=== PATIENT | female | born 1945 | race Caucasian/White ===

== ENCOUNTER 2019-08-30 05:35 | Outpatient (CLI) | payer OTHER ==
[~2019-08-30] VITALS: Ht 162.6 cm; Wt 94.1 kg
[2019-08-30] MEDS ORDERED: GEMF600T8 PO (10:26)
[2019-08-30] MEDS ORDERED: METO-310 PO (10:26)
[2019-08-30] MEDS ORDERED: MONT10TA26 PO (10:26)
[2019-08-30] MEDS ORDERED: ONDA-105 PO (10:26)
[2019-08-30] MEDS ORDERED: FLUT1DIS26 IH (10:26)
[2019-08-30] MEDS ORDERED: FAMO20TA5 PO (10:26)
[2019-08-30] MEDS ORDERED: TRIA1TAB5 PO (10:26)
[2019-08-30] MEDS ORDERED: ASPI-586 PO (10:26)
[2019-08-30] MEDS ORDERED: NF-ACI30T PO (10:26)
[2019-08-30] MEDS ORDERED: LOSA50TA63 PO (10:26)
[2019-08-30] MEDS ORDERED: RT-ALBUINH INH (10:26)
[2019-08-30] MEDS ORDERED: CALC1TAB PO (10:26)
== END 2019-08-30 10:35 | disposition home or self-care (01) ==
LOC: PREOP 05:35
PROVIDERS: ATTEND Podiatrist Foot & Ankle Surgery
DX: Z01.818 Encounter for other preprocedural examination (principal)

== ENCOUNTER 2019-09-06 05:53 | Day surgery (SDC) | payer MEDICARE, OTHER ==
[2019-09-06] VITALS (11 sets, daily range): BP systolic 111–143; BP diastolic 59–78
[~2019-09-06] VITALS: Ht 162.6 cm; Wt 94.1 kg
[~2019-09-06 05:53] MED LIST: ASPI-586 PO; CALC1TAB PO; FAMO20TA5 PO; FLUT1DIS26 IH; GEMF600T8 PO; LOSA50TA63 PO; METO-310 PO; MONT10TA26 PO; NF-ACI30T PO; ONDA-105 PO; RT-ALBUINH INH; TRIA1TAB5 PO
[2019-09-06] MEDS ORDERED: ceFAZolin INJECTION 1,000 MG in WATER (STERILE) FOR INJECTION 10 ML IV ONE (06:15)
[2019-09-06] MEDS: LACTATED RINGERS 1,000 ML IV PRN ×3 (06:34→11:16)
[2019-09-06] MEDS ORDERED: FAMOTIDINE 20MG/2ML IV (PEPCID) ONE (06:35)
[2019-09-06] MEDS ORDERED: ceFAZolin INJECTION 1,000 MG ONE (06:36)
[2019-09-06] MEDS ORDERED: WATER (STERILE) FOR INJECTION 10 ML ONE (06:36)
[2019-09-06] MEDS ORDERED: FAMOTIDINE 20MG/2ML IV (PEPCID) IV ONE (06:45)
[2019-09-06] MEDS ORDERED: CATHETER FLUSH 10 ML SYR IV PRN (06:45)
[2019-09-06] MEDS ORDERED: LIDOCAINE 1% INJ 20 ML 20 ML VIAL ONE (07:23)
[2019-09-06] MEDS ORDERED: BUPIVACAINE 0.5% 30 ML (SENSORCAINE) VIAL ONE (07:23)
[2019-09-06] MEDS ORDERED: DEXAMETHASONE 10 MG/ML (DECADRON) 1 ML VIAL ONE ×2 (07:23→08:56)
--- NOTE | 2019-09-06 07:35 | Progress Note-Pre Operative ---
Pre-Operative Progress Note H&P Reviewed The H&P was reviewed, patient examined and no changes noted. Date Seen by Provider: Sep 06, 2019 Time Seen by Provider: 07:35 Date H&P Reviewed: Sep 06, 2019 Time H&P Reviewed: 07:35 Pre-Operative Diagnosis: Hallux Valgus, hypertrophic 2nd metatarsal, 2nd Hammertoe, left foot JOSEPH LOMELI DPM Sep 06, 2019 07:35
[2019-09-06] MEDS ORDERED: proPOfol 200 MG/20 ML (DIPRIVAN) VIAL IV ONE ×2 (07:36→08:56)
[2019-09-06] MEDS ORDERED: fentaNYL INJECTION 100 MCG/2 ML AMP ONE ×2 (07:37→10:07)
[2019-09-06] MEDS ORDERED: LIDOCAINE PF 2% 5 ML (XYLOCAINE) VIAL ONE (08:56)
[2019-09-06] MEDS ORDERED: SEVOFLURANE (ULTANE) 15 ML INHAL SOLN ONE ×8 (08:56→11:18)
[2019-09-06] MEDS ORDERED: PHENYLEPHRINE 100 MCG/ML 10 ML (ANESTHESIA) SYR ONE (08:56)
[2019-09-06] MEDS ORDERED: ONDANSETRON 4 MG/2 ML (SDV) Z0FRAN ONE (08:56)
[2019-09-06] MEDS ORDERED: HYDROcodone/APAP 5 MG/325 MG (LORTAB) TAB PO PRN (11:30)
[2019-09-06] MEDS ORDERED: LACTATED RINGERS 1,000 ML IV SCH (11:30)
--- NOTE | 2019-09-06 11:30 | Progress Note-Post Operative ---
Post-Operative Progess Note Surgeon (s)/Pattern Drum Maker (s) Surgeon JOSEPH LOMELI DPM Pattern Drum Maker: none Pre-Operative Diagnosis Hallux Valgus, hypertrophic 2nd metatarsal, 2nd Hammertoe, left foot Post-Operative Diagnosis same Procedure & Operative Findings Date of Procedure 09/06/19 Procedure Performed/Findings Lapidus-Efrain bunionectomy, 2nd metatarsal osteotomy, 2nd Hammertoe reduction, left foot Anesthesia Type General Estimated Blood Loss Estimated blood loss (mL): Minimal Specimens/Packing Specimens Removed soft tissue from left 1st MTPJ JOSEPH LOMELI DPM Sep 06, 2019 11:30
[2019-09-06] MEDS ORDERED: CEPH500C PO (11:34)
[2019-09-06] MEDS ORDERED: HYDR-4226 PO (11:34)
--- NOTE | 2019-09-06 12:03 | Anesthesia-General Post-Op ---
General Patient Condition Mental Status/LOC: Same as Preop Cardiovascular: Satisfactory Nausea/Vomiting: Absent Respiratory: Satisfactory Pain: Controlled Complications: Absent Post Op Complications Complications None Follow Up Care/Instructions Patient Instructions None needed. Anesthesia/Patient Condition Patient Condition Patient is doing well, no complaints, stable vital signs, no apparent adverse anesthesia problems. No complications reported per nursing. ALEX RAM CRNA Sep 06, 2019 12:03
[2019-09-06] MEDS ORDERED: ONDANSETRON 4 MG/2 ML (SDV) Z0FRAN IVP PRN (12:15)
[2019-09-06] MEDS ORDERED: morphine INJ 10 MG/ML 1ML (SYR OR VIAL) IVP ONE (12:15)
--- NOTE | 2019-09-06 12:50 | Diagnostic Imaging Report ---
INDICATION: Post operative. TECHNIQUE: Two views of the left foot at 12:15 PM. CORRELATION STUDY: None. FINDINGS: Post operative changes of the 1st and 2nd digits are present. At the 1st digit, there is a plate and multiple screws transfixing the 1st tarsometatarsal joint. The alignment appears to be near-anatomic. A long screw longitudinally oriented appears to extend proximal to the cortex of the cuneiform. There are osteotomy changes with a single cerclage wire at the base of the proximal phalanx of the great toe. The alignment appears to be near-anatomic. There is, however, significant degenerative change with joint space narrowing at the 1st MTP joint, greatest along its medial aspect. Post operative changes of the 2nd digit include a likely osteotomy at the 2nd metatarsal head with a single screw present. The metatarsal head is slightly medium positioned in relation to the shaft. There is an additional external fixation pin transfixing the phalanges of the 2nd digit. Overlying dressing material and soft tissue edema are present. Rather prominent plantar calcaneal spur. IMPRESSION: Post operative change of the 1st and 2nd digits of the left foot. Dictated by: Dictated on workstation # [id number]
[2019-09-06] MEDS ORDERED: ONDANSETRON 4 MG/2 ML (SDV) Z0FRAN IVP ONE (13:00)
--- NOTE | 2019-09-06 13:10 | Diagnostic Imaging Report ---
INDICATION: Fluoroscopy for left foot surgery. FINDINGS: Fluoroscopy was provided in the OR during left foot surgery. 22 seconds of fluoroscopic time was utilized. Two images were obtained. Images demonstrate plate and numerous screws transfixing the first CMC joint. There has been osteotomy with cerclage wire of the proximal phalanx of the great toe. There is also a screw extending through the distal second metatarsal. K wire extends through the second toe. IMPRESSION: Fluoroscopy for left foot surgery. Dictated by: Dictated on workstation # [id number]
--- NOTE | 2019-09-06 14:48 | Physical Therapy Ortho Eval ---
PT Orthopedic Evaluation Type of Surgery Hallux Valgus, hypertrophic 2nd metatarsal, 2nd Hammertoe, left foot Prior Level of Function Current Living Status: Spouse Locomotion (Upon Admit): Independent knee scooter Subjective Entry Into Home: Stairs With Railing Steps Into Home: 2 Motor Control Motor Control: Motor Control WNL ROM ROM: WFL, except focal deficit Strength Strength: Gen Weak,No Focal Deficit Transfer Transfers (B, C, W/C) (FIM): 5 Gait Gait Assistive Device: FWW Right Lower Extremity: Right Weight Bearing Status RLE: Full Weight Bearing Left Lower Extremity: Left Weight Bearing Status LLE: Non Weight Bearing unable to maintain NWB left LE Distance (FIM): 1=up to 49 ft Distance: 5' Gait Level of Assist: 3 Treatment Rendered Treatment: Gait Train, Step Train (with spouse and PT on each side with patient unable to maintain NWB left LE) Assessment/Goals Goal Time Frame: 1 Visit Safe Ambulation: No Plan Treatment Plan: Discharge, Education, Gait, Safety, Transfers Treatment Duration: eval PT/Family Agrees to Plan: Yes Time Time In: 1410 Time Out: 1430 Total Billed Treatment Time: 20 [facility] Sep 06, 2019 14:47
--- NOTE | 2019-09-06 16:04 | OPERATIVE REPORT ---
DATE OF SERVICE: 09/06/2019 SURGEON: Meron Powell DPM. PREOPERATIVE DIAGNOSES: 1. Hallux abductovalgus metatarsal primus varus, left foot. 2. Hypertrophic second metatarsal, left foot. 3. Hammer digit syndrome, left second digit, left foot. POSTOPERATIVE DIAGNOSES: 1. Hallux abductovalgus metatarsal primus varus, left foot. 2. Hypertrophic second metatarsal, left foot. 3. Hammer digit syndrome, left second digit, left foot. 4. Gout. PROCEDURES PERFORMED: 1. Modified Lapidus Efrain bunionectomy, left foot. 2. Second metatarsal osteotomy, left foot. 3. Reduction of hammertoe, left second digit, left foot. WOUND CLASS: Clean. ANESTHESIA: General. HEMOSTASIS: Pneumatic thigh tourniquet at 250 mmHg. INDICATIONS FOR PROCEDURE: This 74-year-old female presents complaining of a painful left foot. Conservative therapy is met with unsatisfactory results and the patient is agreeable to surgical intervention after risks and complications were discussed at length. No guarantees were extended to the patient and she is willing to proceed. DESCRIPTION OF PROCEDURE: The patient was brought back to the operating table and placed in a secure supine position. A general anesthetic was then induced. Appropriate timeout was performed. A pneumatic thigh tourniquet was placed on the left lower extremity over several layers of padding. The left foot was then prepped and draped in a normal sterile manner. The left foot was then anesthetized utilizing 10 mL of 0.5% Marcaine in a Powers block. The left foot was elevated, allowed to exsanguinate after which the tourniquet was inflated to 250 mmHg. Attention was then directed to the dorsal aspect of the left first ray where a 10 cm longitudinal linear incision was created overlying the metatarsal cuneiform joint extending into the interphalangeal joint of the hallux. The incision was deepened in the same plane with the great care to identify and retract all vital neurovascular structures, when necessary blood vessels were cauterized as encountered. The incision was deepened down to the capsular tissue of the first metatarsal cuneiform joint and the capsular tissue was reflected. Utilizing a power sagittal saw, a cut was performed to remove the articular cartilage of the base of the first metatarsal as well as the distal aspect of the medial cuneiform. These were cut in such a way as to reduce the intermetatarsal angle as well as to plantarflex the distal portion of the first metatarsal. This was confirmed by intraoperative C-arm. Temporary K-wire fixation was applied. Next, utilizing a [place] 28 Lapidus plate, the first metatarsal cuneiform fusion was performed and fixated. This was a left standard Lapidus plate and utilizing 3.5 screws. The proximal two locking screws were 14 mm of length. Next, an interfragmental compression screw was applied from dorsal distal to proximal plantar of 42 mm of length. There was a nonlocking screw at the distal aspect of the plate of 14 mm length. The next 2 screws were 14 and 16 mm of length. Intraoperative x-ray indicated appropriate reduction of the intermetatarsal angle and appropriate fixation at this time. The wound was flushed with copious amounts of normal saline. Attention was then directed to the first metatarsophalangeal joint where a longitudinal capsulotomy was performed. A white chalky like material was identified within the capsular tissue and sent for gross and microscopic evaluation. The dorsal eminence to the first metatarsal head and medial eminence to the first metatarsal head were reduced followed by a bur and a power rasp. There was significant amount of the medial aspect of the first metatarsal head that was devoid of any articular cartilage. This area was fenestrated utilizing a smooth 0.062 K wire. Attention was then directed to the diaphysis of the proximal phalanx of the left hallux, where a subperiosteal dissection was carried out. A wedge of bone was resected from the diaphysis with the base medial and the lateral cortices held intact. A transport pilot hole was created to the medial aspect of the osteotomy. Once the wedge of bone was removed, the osteotomy was closed and a 28-gauge monofilament wire was utilized for internal fixation. Excellent bony apposition and fixation was appreciated at this time. The wound was flushed with copious amounts of normal saline. Closure was then performed in layers. Deep closure was performed with 3-0 Vicryl, superficial with 4-0 Vicryl and the skin closed with 4-0 Prolene in a horizontal mattress type stitch. Attention was then directed to the left second metatarsophalangeal joint area. A 6 cm longitudinal linear incision was created from the surgical neck of the second metatarsal to the distal interphalangeal joint of the toe. The incision was deepened in the same plane with great care to identify and retract all vital neurovascular structures. All the necessary blood vessels were cauterized as encountered. The incision was deepened down to the first metatarsophalangeal joint where a transverse capsulotomy was performed. The extensor tendon was also lengthened with a Z slide lengthening. The extensor colón was released. The medial collateral ligament was released and the plantar adhesions also released with a [place]lamery elevator. Next, a second metatarsal osteotomy was performed with a bone cut from dorsal to plantar with the cut biased from distal lateral to proximal medial medial, allowing the capital fragment to translocate proximally and medially. The capital fragment was fixated in its corrected position utilizing a 2.0 snap-off screw 14 mm of length. The wound was flushed with copious amounts of normal saline. Attention was then directed to the proximal interphalangeal joint of the left second toe where an arthrodesis was performed. The medial and lateral collateral ligaments and a dorsal capsulorrhaphy was performed. The head of the proximal phalanx was fashioned into a peg utilizing a power sagittal saw and power bur and a hole created to the base of the middle phalanx with a power bur. Next, a 0.054 K-wire was driven down the toe securing the digit in a rectus alignment. A protective ball was placed over the end of the wire. The wound was flushed with copious amounts of normal saline. The closure was then performed in layers. Deep closure was performed with 3-0 Vicryl, superficial with 4-0 Vicryl, skin closed with 4-0 Prolene in a horizontal mattress type stitch. Once the tourniquet was released, an appropriate cap refill time was noted to all digits of the left foot. Postoperative injection consisted of 10 mg dexamethasone into the first intermetatarsal space. Next, an additional 16 mL of 0.5% Marcaine was injected in a local infusion to the surgical sites. Postoperative dressings consisted of Betadine soaked Adaptic, sterile 4 x 4 and sterile Kerlix all secured with Coban wrap. The patient tolerated the anesthesia and procedure well, was transported from the operating room to the recovery area with the vital signs stable and vascular status intact to all digits of the left foot. She is to follow up in my office in 10 days' period of time or sooner if necessary. Job ID: [id number] DocumentID: [id number] Dictated Date: 09/06/2019 11:45:48 Beauty Artist Date: 09/06/2019 16:03:45 Dictated By: CORIE GROVE
--- OUTSIDE RECORDS SUMMARY | 2019-09-08 13:50 | XMS REPORT ---
Author Author Ayla HERNANDEZ Organization [facility] [address] Address [address] [place] [address] Care Team Providers Care Applications Processor Name Role Phone BRIEN HERNANDEZ Unavailable PROBLEMS Type Condition ICD9-CM Code [id number] Code Onset Dates Condition S tatus SNOMED Code Problem Gastroparesis 536.3 Active 339072 006 Problem Esophageal reflux 530.81 Active 24 2274813 Problem Essential hypertension, benign 401.1 Active 7695230 Problem Need for prophylactic vaccination and inoculation, Influen za V04.81 Active 268601704 Problem Mixed hyperlipidemia E78.2 Active 351175523 Problem Lumbago 724.2 Active 089961526 Problem Gastro-esophageal reflux disease without esophagitis K21.9 Active 759909979 Problem Pain in joint, ankle and foot 719.47 Active 859059605 Problem Allergic rhinitis due to pollen 477.0 Active 43448865 Problem Depressive disorder, not elsewhere classified 311 Active 55157130 Problem Mixed hyperlipidemia 272.2 Active 078955168 Problem Essential (primary) hypertension I10 Active 89343400 ALLERGIES No Information ENCOUNTERS Encounter Location Date Diagnosis [facility] [address] [place] [address] Mar, 17 Encounter for immunization Z23 [facility] [address] [place] [address] Jan, 17 Elevated glucose level R73.09 [facility] [address] [place] [address] Jan, 17 Essential (primary) hypertension I10 [facility] [address] [place] [address] Dec, 17 Mixed hyperlipidemia E78.2 and Essential (primary) hypertension I10 [facility] [address] [place] [address] Dec, 17 Essential (primary) hypertension I10 and Gastro-esophageal reflux disease without esophagitis K21.[address] [facility] [address] [address] Mar, 16 Encounter for immunization Z23 [facility] [address] [address] Feb, 16 [facility]counter for immunization Z23 [facility] [address] [address] Jan, 16 Chronic kidney disease (CKD) stage G3b/A1, moderately decreased glomerular filtration rate (GFR) between 30-44 mL/min/1.73 square meter and albuminuria creatinine ratio less than 30 mg/g N18.3 [facility] [address] [address] Dec, 16 Essential (primary) hypertension I10 and Mixed hyperlipidemia E78.2 [facility] [address] [address] Dec, 16 Essential (primary) hypertension I10 ; Gastro-esophageal reflux disease without esophagitis K21.9 and Gastroparesis K31.84 [facility] [address] [address] Dec, 16 [facility] [address] [address] 18 Jul, 16 Well woman exam Z01.419 ; Postmenopausal Z78.0 and Encounter for screening mammogram for malignant neoplasm of breast Z12.31 [facility] [address] [address] Jul, 16 Shingles B02.9 [facility] [address] [address] Jun, 16 Shingles B02.9 ; Low back pain M54.5 ; Sciatica, unspecified side M54.30 and Encounter for immunization Z23 [facility] [address] [address] Apr, [address] [address] [address] Mar, 15 Encounter for immunization Z23 [facility] [address] [place] [address] Jan, 15 [facility] [address] [place] [address] Jan, 15 [facility] [address] [place] [address] Nov, 15 Lumbar back pain 724.2 [facility] [address] [place] [address] Nov, 15 [facility] [address] [place] [address] Nov, 15 [facility] [address] [place] [address] Nov, 15 [facility] [address] [place] [address] Nov, 15 [facility] [address] [place] [address] 08 Nov, 15 [facility] [address] [place] [address] Nov, 15 Gastroparesis 536.3 ; Essential hypertension, benign 401.1 ; Other vitamin B12 deficiency anemia 281.1 ; Malaise and fatigue 780.79 and Mixed hyperlipidemia 272.2 [facility] [address] [place] [address] Nov, 15 Gastroparesis 536.3 ; Essential hypertension, benign 401.1 and Esophageal reflux 530.81 [facility] [place] [address] [place] [address] October, 15 Other vitamin B12 deficiency anemia 281.1 and Malaise and fatigue 780.79 [address] [place] [address] Sep, [address] [address] Sep, [facility] [place] [address] [place] [address] Aug, 15 [place] [id number] [place] [address] Aug, [facility] [address] [place] [address] 10 Apr, 14 [facility] [address] [address] 10 Apr, 2013 [facility] [address] [place] [address] 16 Mar, 14 [facility] [address] [address] 16 Mar, 2013 [facility] [address] [place] [address] 22 Feb, 14 [facility] [address] [address] 22 Feb, 2013 [facility] [address] [place] [address] 18 Feb, 14 [facility] [address] [address] 18 Feb, 2013 [facility] [address] [place] [address] 17 Feb, 14 [facility] [address] [place] [address] 17 Feb, 14 [facility] [address] [address] 17 Feb, 2013 [facility] [address] [address] 17 Feb, 2013 [facility] [address] [address] 17 Feb, 2013 [facility] [address] [facility] [place] [address] 17 Feb, 2013 [facility] [address] [place] [address] 17 Feb, 14 [facility] [address] [place] [address] 17 Feb, 14 [facility] [address] [place] [address] 02 Nov, 14 [facility] [address] [facility] [place] [address] Nov, [facility] [address] [place] [facility] [place] [address] Sep, [address] [facility] [address] [facility] [place] [address] Sep, [facility] [address] [place] [address] Sep, 14 [facility] [address] [id number] [place] [address] Sep, [facility] [address] [place] [address] Sep, 14 [facility] [address] [facility] [place] [address] Sep, [facility] [address] [place] [facility] [place] [address] Aug, 14 [facility] [address] [place] [facility] [place] [address] Aug, 14 [facility] [address] [place] [facility] [place] [address] Aug, 14 [facility] [address] [place] [facility] [place] [address] Aug, 14 [facility] [address] [place] [facility] [place] [address] Aug, 14 [facility] [address] [id number] [place] [address] Aug, [facility] [address] [id number] [place] [address] Aug, [facility] [address] [id number] [place] [address] Aug, [facility] [address] [id number] [place] [address] Aug, [facility] [address] [id number] [place] [address] Aug, [facility] [address] [id number] [place] [address] Aug, [facility] [address] [place] [address] Aug, 14 [facility] [address] [id number] [place] [address] Aug, [facility] [address] [id number] [place] [address] Aug, [facility] [address] [id number] [place] [address] Aug, [facility] [address] [place] [address] Aug, 14 [facility] [address] [place] [address] Aug, 14 [facility] [address] [id number] [place] [address] Aug, [facility] [address] [place] [address] Jul, 14 [facility] [address] [id number] [place] [address] Jul, [facility] [address] [place] [address] Jun, 14 [facility] [address] [id number] [place] [address] Jun, [facility] [address] [place] [address] Jun, 14 [facility] [address] [id number] [place] [address] Jun, [facility] [address] [place] [address] Jun, 14 [facility] [address] [id number] [place] [address] Jun, [facility] [address] [place] [address] Jun, 14 [facility] [address] [id number] [place] [address] Jun, [facility] [address] [facility] [place] [address] May, 13 [facility] [address] [id number] [place] [address] May, [facility] [address] [facility] [place] [address] May, 13 [facility] [address] [id number] [place] [address] May, 2012 [facility] [address] [place] [facility] [place] [address] May, 13 [facility] [address] [id number] [place] [address] May, [facility] [address] [facility] [place] [address] May, 13 [facility] [address] [id number] [place] [address] May, [facility] [address] [facility] [place] [address] May, 13 [facility] [address] [id number] [place] [address] May, [facility] [address] [facility] [place] [address] May, 13 [facility] [address] [id number] [place] [address] May, [facility] [address] [facility] [place] [address] Apr, 13 [facility] [address] [id number] [place] [address] Apr, [facility] [address] [id number] [place] [address] Apr, [facility] [address] [place] [address] Apr, 13 [facility] [address] [id number] [place] [address] Apr, [facility] [address] [place] [address] Apr, 13 [facility] [address] [place] [id number] [place] [address] Apr, [facility] [place] [address] Apr, 13 [facility] [address] [address] Apr, [facility] [address] [place] [address] Apr, 13 [facility] [address] [address] Apr, [place] [address] Mar, 13 [place] [address] [address] Mar, [facility] [address] [place] [address] Mar, 13 [facility] [address] [place] [id number] [place] [address] Mar, IMMUNIZATIONS No Known Immunizations SOCIAL HISTORY Never Assessed REASON FOR VISIT PLAN OF CARE VITAL SIGNS MEDICATIONS Unknown Medications RESULTS No Results PROCEDURES No Known procedures INSTRUCTIONS MEDICATIONS ADMINISTERED No Known Medications MEDICAL (GENERAL) HISTORY Type Description Date Medical History Pain in joint, ankle and foot Medical History Allergic rhinitis due to pollen Medical History Gastroparesis Medical History Mixed hyperlipidemia Medical History Essential hypertension, benign Medical History Lumbago Medical History Need for prophylactic vaccination and in oculation, Influenza Medical History Esophageal reflux Medical History Depressive disorder, not elsewhere class ified Surgical History hysterectomy 03/1977 Surgical History orthopedic surgery - RT ELBO W RADIAL HEAD '; RT KNEE REPLACEMENT 10 Surgical History cataract-lens implants - BILAT Surgical History ANTERIOR REPAIR VAGINAL VAULT PROLAPSE 0 02/2012 Surgical History ESOPHAGUS PUNCTURES AND LUNG COLLAPSE Surgical History RECTAL REPAIR 09/2012 Hospitalization History Surgery(s) only
--- OUTSIDE RECORDS SUMMARY | 2019-09-08 13:51 | XMS REPORT ---
Author Author Ayla Stahl Organization [facility] Address [address] [place] [address] Care Team Providers Care Headlight Adjuster Name Role Phone GERSON Stahl Unavailable PROBLEMS Type Condition ICD9-CM Code PDX24-TV Code Onset Dates Condition S tatus SNOMED Code Problem Gastroparesis 536.3 Active 839004 006 Problem Esophageal reflux 530.81 Active 24 0645955 Problem Essential hypertension, benign 401.1 Active 1237564 Problem Need for prophylactic vaccination and inoculation, Influen za V04.81 Active 529618066 Problem Mixed hyperlipidemia E78.2 Active 539175929 Problem Lumbago 724.2 Active 280367929 Problem Gastro-esophageal reflux disease without esophagitis K21.9 Active 747663034 Problem Pain in joint, ankle and foot 719.47 Active 280535037 Problem Allergic rhinitis due to pollen 477.0 Active 31281796 Problem Depressive disorder, not elsewhere classified 311 Active 42221033 Problem Mixed hyperlipidemia 272.2 Active 430683102 Problem Essential (primary) hypertension I10 Active 26866540 ALLERGIES No Information ENCOUNTERS Encounter Location Date Diagnosis [facility] [address] [place] [address] Mar, 17 Encounter for immunization Z23 [facility] [address] [place] [address] Jan, 17 Elevated glucose level R73.09 [facility] [address] [place] [address] Jan, 17 Essential (primary) hypertension I10 [facility] [address] [place] [address] Dec, 17 Mixed hyperlipidemia E78.2 and Essential (primary) hypertension I10 [facility] [address] [place] [address] Dec, 17 Essential (primary) hypertension I10 and Gastro-esophageal reflux disease without esophagitis [facility]21.9 [facility] [address] [address] Mar, 16 Encounter for immunization Z23 [facility] [address] [address] Feb, 16 [facility] [address] [address] Jan, 16 Chronic kidney disease (CKD) stage G3b/A1, moderately decreased glomerular filtration rate (GFR) between 30-44 mL/min/1.73 square meter and albuminuria creatinine ratio less than 30 mg/g N18.3 [facility] [address] [address] Dec, 16 Essential (primary) hypertension I10 and Mixed hyperlipidemia E78.2 [facility] [address] [address] Dec, 16 Essential (primary) hypertension I10 ; Gastro-esophageal reflux disease without esophagitis K21.9 and Gastroparesis K31.84 [facility] [address] [address] Dec, 16 [facility] [address] [address] 18 Jul, 16 Well woman exam Z01.419 ; Postmenopausal Z78.0 and Encounter for screening mammogram for malignant neoplasm of breast Z12.31 [facility] [address] [address] Jul, 16 [address] [address] Jun, 16 Shingles B02.9 ; Low back pain M54.5 ; Sciatica, unspecified side M54.30 and Encounter for immunization Z23 [facility] [address] [address] 04 Apr, 15 [facility] [address] [address] Mar, 15 Encounter for immunization Z23 [facility] [place] [address] [place] [address] Jan, 15 [facility] [place] [address] [place] [address] Jan, 15 [facility] [place] [address] [place] [address] Nov, 15 Lumbar back pain 724.2 [facility] [address] [place] [address] Nov, 15 [facility] [place] [address] [place] [address] Nov, 15 [facility] [address] [place] [address] Nov, 15 [facility] [address] [place] [address] Nov, 15 [facility] [address] [place] [address] Nov, 15 [facility] [address] [place] [address] Nov, 15 Gastroparesis 536.3 ; Essential hypertension, benign 401.1 ; Other vitamin B12 deficiency anemia 281.1 ; Malaise and fatigue 780.79 and Mixed hyperlipidemia 272.2 [facility] [address] [place] [address] Nov, 15 Gastroparesis 536.3 ; Essential hypertension, benign 401.1 and Esophageal reflux 530.81 [facility] [address] [place] [address] October, 15 Other vitamin B12 deficiency anemia 281.1 and Malaise and fatigue 780.[address] [place] [address] Sep, [address] [place] [address] Sep, [facility] [address] [place] [address] Aug, 15 [address] [place] [address] Aug, [facility] [place] [address] [place] [address] Apr, 14 [facility] [address] [address] 10 Apr, 2013 [facility] [place] [address] [place] [address] 16 Mar, 14 [facility] [address] [address] 16 Mar, 2013 [facility] [place] [address] [place] [address] 22 Feb, 14 [facility] [address] [address] 22 Feb, 2013 [facility] [place] [address] [place] [address] 18 Feb, 14 [facility] [address] [address] 18 Feb, 2013 [facility] [place] [address] [place] [address] 17 Feb, 14 [facility] [place] [address] [place] [address] 17 Feb, 14 [facility] [address] [address] 17 Feb, 2013 [facility] [address] [address] 17 Feb, 2013 [facility] [address] [address] 17 Feb, 2013 [facility] [address] [address] 17 Feb, 2013 [facility] [place] [address] [place] [address] 17 Feb, 14 [facility] [place] [address] [place] [address] 17 Feb, 14 [facility] [place] [address] [place] [address] 02 Nov, 14 [facility] [address] [id number] [place] [address] Nov, [facility] [place] [address] [facility] [place] [address] Sep, 14 [facility] [address] [id number] [place] [address] Sep, [facility] [place] [address] [place] [address] Sep, 14 [facility] [address] [id number] [place] [address] Sep, [facility] [place] [address] [place] [address] Sep, 14 [facility] [address] [id number] [place] [address] Sep, [facility] [place] [address] [facility] [place] [address] Aug, 14 [facility] [place] [address] [facility] [place] [address] Aug, 14 [facility] [place] [address] [facility] [place] [address] Aug, 14 [facility] [place] [address] [facility] [place] [address] Aug, 14 [facility] [place] [address] [facility] [place] [address] Aug, 14 [facility] [address] [id number] [place] [address] Aug, [facility] [address] [id number] [place] [address] Aug, [facility] [address] [id number] [place] [address] Aug, [facility] [place] [address] [id number] [place] [address] Aug, [facility] [place] [address] [id number] [place] [address] Aug, [facility] [place] [address] [id number] [place] [address] Aug, [facility] [place] [address] [place] [address] Aug, 14 [facility] [address] [id number] [place] [address] Aug, [facility] [address] [id number] [place] [address] Aug, [facility] [address] [id number] [place] [address] Aug, [facility] [place] [address] [place] [address] Aug, 14 [facility] [place] [address] [place] [address] Aug, 14 [facility] [address] [id number] [place] [address] Aug, [facility] [place] [address] [place] [address] Jul, 14 [facility] [address] [id number] [place] [address] Jul, [facility] [place] [address] [place] [address] Jun, 14 [facility] [address] [id number] [place] [address] Jun, [facility] [place] [address] [place] [address] Jun, 14 [facility] [address] [id number] [place] [address] Jun, [facility] [place] [address] [place] [address] Jun, 14 [facility] [address] [id number] [place] [address] Jun, [facility] [place] [address] [place] [address] Jun, 14 [facility] [address] [id number] [place] [address] Jun, [facility] [place] [address] [facility] [place] [address] May, 13 [facility] [address] [id number] [place] [address] May, [facility] [place] [address] [facility] [place] [address] May, 13 [facility] [address] [id number] [place] [address] May, 2012 [facility] [place] [address] [facility] [place] [address] 18 May, 13 [facility] [place] [id number] [place] [address] May, [facility] [place] [address] [place] [address] May, 13 [facility] [address] [id number] [place] [address] May, [facility] [place] [address] [place] [address] May, 13 [facility] [address] [id number] [place] [address] May, [facility] [place] [address] [place] [address] May, 13 [facility] [address] [id number] [place] [address] May, [facility] [place] [address] [place] [address] Apr, 13 [facility] [address] [id number] [place] [address] Apr, [facility] [id number] [place] [address] Apr, [facility] [place] [address] [place] [address] 18 Apr, 13 [facility] [place] [id number] [place] [address] Apr, [facility] [place] [address] [place] [address] Apr, 13 [facility] [id number] [place] [address] Apr, [facility] [place] [address] [place] [address] Apr, 13 [facility] [id number] [place] [address] Apr, [facility] [place] [address] Apr, 13 [facility] [address] [address] Apr, [facility] [place] [address] Mar, 13 [place] [address] [address] Mar, [facility] [place] [address] [place] [address] Mar, 13 [facility] [id number] [place] [address] Mar, IMMUNIZATIONS No Known Immunizations SOCIAL HISTORY [...]
--- OUTSIDE RECORDS SUMMARY | 2019-09-08 13:51 | XMS REPORT ---
Author Author Ayla Stahl Organization [facility] Address [address] [place] [address] Care Team Providers Care Nut Sheller Name Role Phone GERSON Stahl Unavailable PROBLEMS Type Condition ICD9-CM Code [id number] Code Onset Dates Condition S tatus SNOMED Code Problem Gastroparesis 536.3 Active 461307 006 Problem Esophageal reflux 530.81 Active 24 6732312 Problem Essential hypertension, benign 401.1 Active 1951387 Problem Need for prophylactic vaccination and inoculation, Influen za V04.81 Active 277745747 Problem Mixed hyperlipidemia E78.2 Active 412413139 Problem Lumbago 724.2 Active 235727153 Problem Gastro-esophageal reflux disease without esophagitis K21.9 Active 266697355 Problem Pain in joint, ankle and foot 719.47 Active 988467115 Problem Allergic rhinitis due to pollen 477.0 Active 83029815 Problem Depressive disorder, not elsewhere classified 311 Active 53793985 Problem Mixed hyperlipidemia 272.2 Active 932059027 Problem Essential (primary) hypertension I10 Active 22101582 ALLERGIES No Information ENCOUNTERS Encounter Location Date Diagnosis [facility] [address] [place] [address] Mar, 17 Encounter for immunization Z23 [facility] [address] [place] [address] Jan, 17 Elevated glucose level R73.09 [facility] [address] [place] [address] Jan, 17 Essential (primary) hypertension I10 [facility] [address] [place] [address] Dec, 17 Mixed hyperlipidemia E78.2 and Essential (primary) hypertension I10 [facility] [address] [place] [address] Dec, 17 Essential (primary) hypertension I10 and Gastro-esophageal reflux disease without esophagitis K21.9 [facility] [address] [address] Mar, 16 Encounter for immunization Z23 [facility] [address] [address] Feb, 16 [facility] [address] [address] Jan, 16 Chronic kidney disease (CKD) stage G3b/A1, moderately decreased glomerular filtration rate (GFR) between 30-44 mL/min/1.73 square meter and albuminuria creatinine ratio less than 30 mg/g N18.3 [facility] [address] [address] Dec, 16 Essential (primary) hypertension I10 and Mixed hyperlipidemia E78.2 [facility] [address] [address] Dec, 16 Essential (primary) hypertension I10 ; Gastro-esophageal reflux disease without esophagitis K21.9 and Gastroparesis K31.84 [facility] [address] [address] Dec, 16 [facility] [address] [address] 18 Jul, 16 Well woman exam Z01.419 ; Postmenopausal Z78.0 and Encounter for screening mammogram for malignant neoplasm of breast Z12.31 [facility] [address] [address] Jul, [address] [address] Jun, 16 Shingles B02.9 ; Low back pain M54.5 ; Sciatica, unspecified side M54.30 and Encounter for immunization Z23 [facility] [address] [address] 04 Apr, 15 [facility] [address] [address] Mar, 15 Encounter for immunization Z23 [facility] [place] [address] [place] [address] Jan, 15 [facility] [place] [address] [place] [address] Jan, 15 [facility] [place] [address] [place] [address] Nov, 15 Lumbar back pain 724.2 [facility] [address] [place] [address] Nov, 15 [facility] [place] [address] [place] [address] Nov, [address] [facility] [address] [place] [address] Nov, [address] [facility] [address] [place] [address] Nov, 15 [facility] [address] [place] [address] Nov, [address] [facility] [address] [place] [address] Nov, 15 Gastroparesis 536.3 ; Essential hypertension, benign 401.1 ; Other vitamin B12 deficiency anemia 281.1 ; Malaise and fatigue 780.[address] [facility] [address] [place] [address] Nov, 15 Gastroparesis 536.3 ; Essential hypertension, benign 401.1 and Esophageal reflux 530.81 [facility] [address] [place] [address] October, 15 Other vitamin B12 deficiency anemia 281.1 and Malaise and fatigue 780.79 [address] [place] [address] Sep, [address] [place] [address] Sep, [facility] [address] [place] [address] Aug, 15 [address] [place] [address] Aug, [facility] [place] [address] [place] [address] Apr, 14 [facility] [address] [address] 10 Apr, 2013 [facility] [place] [address] [place] [address] 16 Mar, 14 [facility] [address] [address] 16 Mar, 2013 [facility] [place] [address] [place] [address] 22 Feb, 14 [facility] [address] [address] 22 Feb, 2013 [facility] [place] [address] [place] [address] 18 Feb, 14 [facility] [address] [address] 18 Feb, 2013 [facility] [place] [address] [place] [address] 17 Feb, 14 [facility] [place] [address] [place] [address] 17 Feb, 14 [facility] [address] [address] 17 Feb, 2013 [facility] [address] [address] 17 Feb, 2013 [facility] [address] [address] 17 Feb, 2013 [facility] [address] [address] 17 Feb, 2013 [facility] [place] [address] [place] [address] 17 Feb, 14 [facility] [place] [address] [place] [address] 17 Feb, 14 [facility] [place] [address] [place] [address] 02 Nov, 14 [facility] [address] [id number] [place] [address] Nov, [facility] [place] [address] [facility] [place] [address] Sep, 14 [facility] [address] [id number] [place] [address] Sep, [facility] [place] [address] [place] [address] Sep, 14 [facility] [address] [id number] [place] [address] Sep, [facility] [place] [address] [place] [address] Sep, 14 [facility] [address] [id number] [place] [address] Sep, [facility] [place] [address] [facility] [place] [address] Aug, 14 [facility] [place] [address] [facility] [place] [address] Aug, 14 [facility] [place] [address] [facility] [place] [address] Aug, 14 [facility] [place] [address] [facility] [place] [address] Aug, 14 [facility] [place] [address] [facility] [place] [address] Aug, 14 [facility] [address] [id number] [place] [address] Aug, [facility] [address] [id number] [place] [address] Aug, [facility] [address] [id number] [place] [address] Aug, [facility] [address] [id number] [place] [address] Aug, [facility] [address] [id number] [place] [address] Aug, [facility] [address] [id number] [place] [address] Aug, [facility] [place] [address] [place] [address] Aug, 14 [facility] [address] [id number] [place] [address] Aug, [facility] [address] [id number] [place] [address] Aug, [facility] [address] [id number] [place] [address] Aug, [facility] [place] [address] [place] [address] Aug, 14 [facility] [place] [address] [place] [address] Aug, [address] [facility] [address] [id number] [place] [address] Aug, [facility] [place] [address] [place] [address] Jul, [address] [facility] [address] [id number] [place] [address] Jul, [facility] [place] [address] [place] [address] Jun, 14 [facility] [address] [id number] [place] [address] Jun, [facility] [place] [address] [place] [address] Jun, 14 [facility] [address] [id number] [place] [address] Jun, [facility] [place] [address] [place] [address] Jun, 14 [facility] [address] [id number] [place] [address] Jun, [facility] [place] [address] [place] [address] Jun, 14 [facility] [address] [id number] [place] [address] Jun, [facility] [place] [address] [facility] [place] [address] May, 13 [facility] [address] [id number] [place] [address] May, [facility] [place] [address] [facility] [place] [address] May, 13 [facility] [address] [id number] [place] [address] May, 2012 [facility] [place] [address] [facility] [place] [address] 18 May, 13 [facility] [address] [id number] [place] [address] May, [facility] [place] [address] [place] [address] May, 13 [facility] [address] [id number] [place] [address] May, [facility] [place] [address] [place] [address] May, 13 [facility] [address] [id number] [place] [address] May, [facility] [place] [address] [place] [address] May, 13 [facility] [address] [id number] [place] [address] May, [facility] [place] [address] [place] [address] Apr, 13 [facility] [address] [id number] [place] [address] Apr, [facility] [id number] [place] [address] Apr, [facility] [place] [address] [place] [address] 18 Apr, 13 [facility] [id number] [place] [address] Apr, [facility] [place] [address] [place] [address] Apr, 13 [facility] [id number] [place] [address] Apr, [facility] [place] [address] [place] [address] Apr, 13 [facility] [id number] [place] [address] Apr, [facility] [place] [address] Apr, 13 [facility] [address] [address] Apr, [facility] [place] [address] Mar, [address] [place] [address] [address] Mar, [facility] [place] [address] [place] [address] Mar, 13 [facility] [id number] [place] [address] Mar, IMMUNIZATIONS No Known Immunizations SOCIAL HISTORY [...]
--- OUTSIDE RECORDS SUMMARY | 2019-09-08 13:51 | XMS REPORT ---
Author Author Ayla Stahl Organization [facility] Address [address] [place] [address] Care Team Providers Care Ground Crewman Name Role Phone GERSON Stahl Unavailable PROBLEMS Type Condition ICD9-CM Code ULG58-EF Code Onset Dates Condition S tatus SNOMED Code Problem Gastroparesis 536.3 Active 039055 006 Problem Esophageal reflux 530.81 Active 24 9041778 Problem Essential hypertension, benign 401.1 Active 7497826 Problem Need for prophylactic vaccination and inoculation, Influen za V04.81 Active 057282387 Problem Mixed hyperlipidemia E78.2 Active 908730353 Problem Lumbago 724.2 Active 563327039 Problem Gastro-esophageal reflux disease without esophagitis K21.9 Active 546858151 Problem Pain in joint, ankle and foot 719.47 Active 553893417 Problem Allergic rhinitis due to pollen 477.0 Active 61980511 Problem Depressive disorder, not elsewhere classified 311 Active 98682187 Problem Mixed hyperlipidemia 272.2 Active 114566056 Problem Essential (primary) hypertension I10 Active 22093453 ALLERGIES No Information ENCOUNTERS Encounter Location Date Diagnosis [facility] [address] [place] [address] Mar, 17 Encounter for immunization Z23 [facility] [address] [place] [address] Jan, 17 Elevated glucose level R73.09 [facility] [address] [place] [address] Jan, 17 Essential (primary) hypertension I10 [facility] [address] [place] [address] Dec, 17 Mixed hyperlipidemia E78.2 and Essential (primary) hypertension I10 [facility] [address] [place] [address] Dec, 17 Essential (primary) hypertension I10 and Gastro-esophageal reflux disease without esophagitis [facility] [address] [address] Mar, 16 [facility] [address] [address] Feb, 16 [facility] [address] [address] Jan, 16 Chronic kidney disease (CKD) stage G3b/A1, moderately decreased glomerular filtration rate (GFR) between 30-44 mL/min/1.73 square meter and albuminuria creatinine ratio less than 30 mg/g N18.3 [facility] [address] [address] Dec, 16 Essential (primary) hypertension I10 and Mixed hyperlipidemia E78.2 [facility] [address] [address] Dec, 16 Essential (primary) hypertension I10 ; Gastro-esophageal reflux disease without esophagitis K21.9 and Gastroparesis K31.84 [facility] [address] [address] Dec, 16 [facility] [address] [address] 18 Jul, 16 Well woman exam Z01.419 ; Postmenopausal Z78.0 and Encounter for screening mammogram for malignant neoplasm of breast Z12.31 [facility] [address] [address] Jul, 16 Sh[address] B02[address] [address] Jun, 16 Shingles B02.9 ; Low back pain M54.5 ; Sciatica, unspecified side M54.30 and [facility] [address] [address] 04 Apr, 15 [facility] [address] [address] Mar, 15 Encounter for immunization Z23 [facility] [place] [address] [place] [address] Jan, 15 [facility] [place] [address] [place] [address] Jan, 15 [facility] [place] [address] [place] [address] Nov, 15 Lumbar back pain 724.2 [facility] [address] [place] [address] Nov, 15 [facility] [place] [address] [place] [address] Nov, 15 [facility] [address] [place] [address] Nov, 15 [facility] [address] [place] [address] Nov, 15 [facility] [address] [place] [address] Nov, 15 [facility] [address] [place] [address] Nov, 15 Gastroparesis 536.3 ; Essential hypertension, benign 401.1 ; Other vitamin B12 deficiency anemia 281.1 ; Malaise and fatigue 780.79 and Mixed hyperlipidemia 272.2 [facility] [address] [place] [address] Nov, 15 Gastroparesis 536.3 ; Essential hypertension, benign 401.1 and Esophageal reflux 530.81 [facility] [address] [place] [address] October, 15 Other vitamin B12 deficiency anemia 281.1 and Malaise and fatigue 780.[address] [place] [address] Sep, [address] [place] [address] Sep, [facility] [address] [place] [address] Aug, 15 [address] [place] [address] Aug, [facility] [place] [address] [place] [address] Apr, 14 [facility] [address] [address] 10 Apr, 2013 [facility] [place] [address] [place] [address] 16 Mar, 14 [facility] [address] [address] 16 Mar, 2013 [facility] [place] [address] [place] [address] 22 Feb, 14 [facility] [address] [address] 22 Feb, 2013 [facility] [place] [address] [place] [address] 18 Feb, 14 [facility] [address] [address] 18 Feb, 2013 [facility] [place] [address] [place] [address] 17 Feb, 14 [facility] [place] [address] [place] [address] 17 Feb, 14 [facility] [address] [address] 17 Feb, 2013 [facility] [address] [address] 17 Feb, 2013 [facility] [address] [address] 17 Feb, 2013 [facility] [address] [address] 17 Feb, 2013 [facility] [place] [address] [place] [address] 17 Feb, 14 [facility] [place] [address] [place] [address] 17 Feb, 14 [facility] [place] [address] [place] [address] 02 Nov, 14 [facility] [address] [id number] [place] [address] Nov, [facility] [place] [address] [place] [facility] [place] [address] Sep, 14 [facility] [address] [id number] [place] [address] Sep, [facility] [place] [address] [place] [address] Sep, 14 [facility] [address] [id number] [place] [address] Sep, [facility] [place] [address] [place] [address] Sep, 14 [facility] [address] [id number] [place] [address] Sep, [facility] [place] [address] [facility] [place] [address] Aug, 14 [facility] [place] [address] [place] [facility] [place] [address] Aug, 14 [facility] [place] [address] [place] [facility] [place] [address] Aug, 14 [facility] [place] [address] [place] [facility] [place] [address] Aug, 14 [facility] [place] [address] [place] [facility] [place] [address] Aug, 14 [facility] [address] [id number] [place] [address] Aug, [facility] [address] [id number] [place] [address] Aug, [facility] [address] [id number] [place] [address] Aug, [facility] [address] [id number] [place] [address] Aug, [facility] [address] [id number] [place] [address] Aug, [facility] [address] [id number] [place] [address] Aug, [facility] [place] [address] [place] [address] Aug, 14 [facility] [address] [id number] [place] [address] Aug, [facility] [address] [id number] [place] [address] Aug, [facility] [address] [id number] [place] [address] Aug, [facility] [place] [address] [place] [address] Aug, 14 [facility] [place] [address] [place] [address] Aug, 14 [facility] [address] [id number] [place] [address] Aug, [facility] [place] [address] [place] [address] Jul, 14 [facility] [address] [id number] [place] [address] Jul, [facility] [place] [address] [place] [address] Jun, 14 [facility] [address] [id number] [place] [address] Jun, [facility] [place] [address] [place] [address] Jun, 14 [facility] [address] [id number] [place] [address] Jun, [facility] [place] [address] [place] [address] Jun, 14 [facility] [address] [id number] [place] [address] Jun, [facility] [place] [address] [place] [address] Jun, 14 [facility] [address] [id number] [place] [address] Jun, [facility] [place] [address] [facility] [place] [address] May, 13 [facility] [address] [id number] [place] [address] May, [facility] [place] [address] [place] [facility] [place] [address] May, 13 [facility] [address] [facility] [place] [address] May, 2012 [facility] [place] [address] [place] [facility] [place] [address] 18 May, 13 [facility] [id number] [place] [address] May, [facility] [place] [address] [place] [address] May, 13 [facility] [address] [facility] [place] [address] May, [facility] [place] [address] [place] [address] May, 13 [facility] [address] [facility] [place] [address] May, [facility] [place] [address] [place] [address] May, 13 [facility] [address] [facility] [place] [address] May, [facility] [place] [address] [place] [address] Apr, 13 [facility] [address] [id number] [place] [address] Apr, [facility] [id number] [place] [address] Apr, [facility] [place] [address] [place] [address] 18 Apr, 13 [facility] [id number] [place] [address] Apr, [facility] [place] [address] [place] [address] Apr, 13 [facility] [id number] [place] [address] Apr, [facility] [place] [address] [place] [address] Apr, 13 [facility] [address] [address] Apr, [facility] [place] [address] [place] [address] Apr, 13 [facility] [address] [address] Apr, [facility] [place] [address] Mar, 13 [place] [address] [address] Mar, [facility] [place] [address] Mar, 13 [place] [address] [address] Mar, IMMUNIZATIONS No Known Immunizations SOCIAL HISTORY Never Assessed REASON FOR VISIT PLAN OF CARE VITAL SIGNS MEDICATIONS Unknown Medications RESULTS No Results PROCEDURES Procedure Date Ordered Result Body Site COMPLETE CBC W/AUTO DIFF WBC September 09, 2013 ASSAY OF MAGNESIUM September 09, 2013 IRON BINDING TEST September 09, 2013 ASSAY OF IRON September 09, 2013 LIPID PANEL September 09, 2013 COMPREHEN METABOLIC PANEL September 09, 2013 VENIPUNCT, ROUTINE* September 09, 2013 INSTRUCTIONS MEDICATIONS ADMINISTERED No Known Medications MEDICAL [...] surgery - RT ELBO W RADIAL HEAD '98; RT KNEE REPLACEMENT 10 Surgical History cataract-lens implants - BILAT Surgical History ANTERIOR REPAIR VAGINAL VAULT PROLAPSE 0 02/2012 Surgical History ESOPHAGUS PUNCTURES AND LUNG COLLAPSE Surgical History RECTAL REPAIR 09/2012 Hospitalization History Surgery(s) only
--- OUTSIDE RECORDS SUMMARY | 2019-09-08 13:51 | XMS REPORT ---
Author Author Ayla Stahl Organization [facility] Address [address] [place] [address] Care Team Providers Care Architecture Consultant Name Role Phone GERSON Stahl Unavailable PROBLEMS Type Condition ICD9-CM Code QLQ95-PP Code Onset Dates Condition S tatus SNOMED Code Problem Gastroparesis 536.3 Active 978545 006 Problem Esophageal reflux 530.81 Active 24 1541488 Problem Essential hypertension, benign 401.1 Active 7667035 Problem Need for prophylactic vaccination and inoculation, Influen za V04.81 Active 084537149 Problem Mixed hyperlipidemia E78.2 Active 114453956 Problem Lumbago 724.2 Active 137946588 Problem Gastro-esophageal reflux disease without esophagitis K21.9 Active 110506215 Problem Pain in joint, ankle and foot 719.47 Active 389996602 Problem Allergic rhinitis due to pollen 477.0 Active 07666415 Problem Depressive disorder, not elsewhere classified 311 Active 05436752 Problem Mixed hyperlipidemia 272.2 Active 788677151 Problem Essential (primary) hypertension I10 Active 24974017 ALLERGIES No Information ENCOUNTERS Encounter Location Date Diagnosis [facility] [address] [place] [address] Mar, 17 Encounter for immunization Z23 [facility] [address] [place] [address] Jan, 17 Elevated glucose level R73.09 [facility] [address] [place] [address] Jan, 17 Essential (primary) hypertension I10 [facility] [address] [place] [address] Dec, 17 Mixed hyperlipidemia E78.2 and Essential (primary) hypertension I10 [facility] [address] [place] [address] Dec, 17 Essential (primary) hypertension I10 and Gastro-esophageal reflux disease without esophagitis K21.9 [facility] [address] [address] Mar, 16 Encounter for immunization Z23 [facility] [address] [address] Feb, 16 Encounter for immunization [facility]23 [facility] [address] [address] Jan, 16 Chronic kidney disease (CKD) stage G3b/A1, moderately decreased glomerular filtration rate (GFR) between 30-44 mL/min/1.73 square meter and albuminuria creatinine ratio less than 30 mg/g N18.3 [facility] [address] [address] Dec, 16 Essential (primary) hypertension I10 and Mixed hyperlipidemia E78.2 [facility] [address] [address] Dec, 16 Essential (primary) hypertension I10 ; Gastro-esophageal reflux disease without esophagitis K21.9 and Gastroparesis K31.84 [facility] [address] [address] Dec, 16 [facility] [address] [address] 18 Jul, 16 Well woman exam Z01.419 ; Postmenopausal Z78.0 and Encounter for screening mammogram for malignant neoplasm of breast Z12.31 [facility] [address] [address] Jul, [address] [address] Jun, 16 Shingles B02.9 ; Low back pain M54.5 ; Sciatica, unspecified side M54.30 and [facility]counter for [facility] [address] [address] 04 Apr, 15 [facility] [address] [address] Mar, 15 Encounter for immunization Z23 [facility] [place] [address] [place] [address] Jan, 15 [facility] [place] [address] [place] [address] Jan, 15 [facility] [place] [address] [place] [address] Nov, 15 Lumbar back pain 724.2 [facility] [address] [place] [address] Nov, 15 [facility] [place] [address] [place] [address] Nov, 15 [facility] [address] [place] [address] Nov, 15 [facility] [address] [place] [address] Nov, 15 [facility] [address] [place] [address] Nov, 15 [facility] [address] [place] [address] Nov, 15 Gastroparesis 536.3 ; Essential hypertension, benign 401.1 ; Other vitamin B12 deficiency anemia 281.1 ; Malaise and fatigue 780.79 and Mixed hyperlipidemia 272.2 [facility] [address] [place] [address] Nov, 15 Gastroparesis 536.3 ; Essential hypertension, benign 401.1 and Esophageal reflux 530.81 [facility] [address] [place] [address] October, 15 Other vitamin B12 deficiency anemia 281.1 and Malaise and fatigue 780.79 [address] [place] [address] Sep, [address] [place] [address] Sep, [facility] [address] [place] [address] Aug, 15 [id number] [place] [address] Aug, [facility] [place] [address] [place] [address] Apr, 14 [facility] [address] [address] 10 Apr, 2013 [facility] [place] [address] [place] [address] 16 Mar, 14 [facility] [address] [address] 16 Mar, 2013 [facility] [place] [address] [place] [address] 22 Feb, 14 [facility] [address] [address] 22 Feb, 2013 [facility] [place] [address] [place] [address] 18 Feb, 14 [facility] [address] [address] 18 Feb, 2013 [facility] [place] [address] [place] [address] 17 Feb, 14 [facility] [place] [address] [place] [address] 17 Feb, 14 [facility] [address] [address] 17 Feb, 2013 [facility] [address] [address] 17 Feb, 2013 [facility] [address] [address] 17 Feb, 2013 [facility] [address] [address] 17 Feb, 2013 [facility] [place] [address] [place] [address] 17 Feb, 14 [facility] [place] [address] [place] [address] 17 Feb, 14 [facility] [place] [address] [place] [address] 02 Nov, 14 [facility] [address] [id number] [place] [address] Nov, [facility] [place] [address] [place] [address] Sep, 14 [facility] [address] [id number] [place] [address] Sep, [facility] [place] [address] [place] [address] Sep, 14 [facility] [address] [id number] [place] [address] Sep, [facility] [place] [address] [place] [address] Sep, 14 [facility] [address] [id number] [place] [address] Sep, [facility] [place] [address] [place] [address] Aug, 14 [facility] [place] [address] [place] [address] Aug, 14 [facility] [place] [address] [place] [address] Aug, 14 [facility] [place] [address] [place] [address] Aug, 14 [facility] [place] [address] [place] [address] Aug, 14 [facility] [address] [id number] [place] [address] Aug, [facility] [address] [id number] [place] [address] Aug, [facility] [address] [id number] [place] [address] Aug, [facility] [address] [id number] [place] [address] Aug, [facility] [address] [id number] [place] [address] Aug, [facility] [address] [id number] [place] [address] Aug, [facility] [place] [address] [place] [address] Aug, 14 [facility] [address] [id number] [place] [address] Aug, [facility] [address] [id number] [place] [address] Aug, [facility] [address] [id number] [place] [address] Aug, [facility] [place] [address] [place] [address] Aug, 14 [facility] [place] [address] [place] [address] Aug, 14 [facility] [address] [id number] [place] [address] Aug, [facility] [place] [address] [place] [address] Jul, 14 [facility] [address] [id number] [place] [address] Jul, [facility] [place] [address] [place] [address] Jun, 14 [facility] [address] [id number] [place] [address] Jun, [facility] [place] [address] [place] [address] Jun, 14 [facility] [address] [id number] [place] [address] Jun, [facility] [place] [address] [place] [address] Jun, 14 [facility] [address] [id number] [place] [address] Jun, [facility] [place] [address] [place] [address] Jun, 14 [facility] [address] [id number] [place] [address] Jun, [facility] [place] [address] [facility] [place] [address] May, 13 [facility] [address] [id number] [place] [address] May, [facility] [place] [address] [facility] [place] [address] May, 13 [facility] [address] [id number] [place] [address] May, 2012 [facility] [place] [address] [facility] [place] [address] 18 May, 13 [facility] [id number] [place] [address] May, [facility] [place] [address] [place] [address] May, 13 [facility] [address] [id number] [place] [address] May, [facility] [place] [address] [place] [address] May, 13 [facility] [address] [id number] [place] [address] May, [facility] [place] [address] [place] [address] May, 13 [facility] [address] [id number] [place] [address] May, [facility] [place] [address] [place] [address] Apr, 13 [facility] [address] [id number] [place] [address] Apr, [facility] [id number] [place] [address] Apr, [facility] [place] [address] [place] [address] 18 Apr, 13 [facility] [id number] [place] [address] Apr, [facility] [place] [address] [place] [address] Apr, 13 [facility] [id number] [place] [address] Apr, [facility] [place] [address] [place] [address] Apr, 13 [facility] [id number] [place] [address] Apr, [facility] [place] [address] Apr, 13 [facility] [address] [address] Apr, [facility] [place] [address] Mar, 13 [place] [address] [address] Mar, [facility] [place] [address] [place] [address] Mar, 13 [facility] [id number] [place] [address] Mar, IMMUNIZATIONS No Known Immunizations SOCIAL HISTORY [...]
--- OUTSIDE RECORDS SUMMARY | 2019-09-08 13:52 | XMS REPORT ---
Author Author Ayla Stahl Organization [facility] Address [address] [place] [address] Care Team Providers Care Swahili Teacher Name Role Phone GERSON Stahl Unavailable PROBLEMS Type Condition ICD9-CM Code [id number] Code Onset Dates Condition S tatus SNOMED Code Problem Gastroparesis 536.3 Active 672769 006 Problem Esophageal reflux 530.81 Active 24 0441372 Problem Essential hypertension, benign 401.1 Active 6154502 Problem Need for prophylactic vaccination and inoculation, Influen za V04.81 Active 973530833 Problem Mixed hyperlipidemia E78.2 Active 153176437 Problem Lumbago 724.2 Active 580363312 Problem Gastro-esophageal reflux disease without esophagitis K21.9 Active 421715378 Problem Pain in joint, ankle and foot 719.47 Active 645776911 Problem Allergic rhinitis due to pollen 477.0 Active 53843647 Problem Depressive disorder, not elsewhere classified 311 Active 46410071 Problem Mixed hyperlipidemia 272.2 Active 509544956 Problem Essential (primary) hypertension I10 Active 53141244 ALLERGIES No Information ENCOUNTERS Encounter Location Date Diagnosis [facility] [address] [place] [address] Mar, 17 Encounter for immunization Z23 [facility] [address] [place] [address] Jan, 17 Elevated glucose level R73.09 [facility] [address] [place] [address] Jan, 17 Essential (primary) hypertension I10 [facility] [address] [place] [address] Dec, 17 Mixed hyperlipidemia E78.2 and Essential (primary) hypertension I10 [facility] [address] [place] [address] Dec, 17 Essential (primary) hypertension I10 and Gastro-esophageal reflux disease without esophagitis K21.9 [facility] [address] [address] Mar, 16 Encounter for immunization Z23 [facility] [address] [address] Feb, 16 Encounter for immunization Z23 [facility] [address] [address] Jan, 16 Chronic kidney disease (CKD) stage G3b/A1, moderately decreased glomerular filtration rate (GFR) between 30-44 mL/min/1.73 square meter and albuminuria creatinine ratio less than 30 mg/g N18.3 [facility] [address] [address] Dec, 16 Essential (primary) hypertension I10 and Mixed hyperlipidemia E78.2 [facility] [address] [address] Dec, 16 Essential (primary) hypertension I10 ; Gastro-esophageal reflux disease without esophagitis K21.9 and Gastroparesis K31.84 [facility] [address] [address] Dec, 16 [facility] [address] [address] 18 Jul, 16 Well woman exam Z01.419 ; Postmenopausal Z78.0 and Encounter for screening mammogram for malignant neoplasm of breast Z12.31 [facility] [address] [address] Jul, 16 [address] [address] Jun, 16 Shingles B02.9 ; Low back pain M54.5 ; Sciatica, unspecified side M54.30 and Encounter for immunization Z23 [facility] [address] [address] 04 Apr, 15 [facility] [address] [address] Mar, 15 Encounter for immunization Z23 [facility] [place] [address] [place] [address] Jan, 15 [facility] [place] [address] [place] [address] Jan, 15 [facility] [place] [address] [place] [address] Nov, 15 Lumbar back pain 724.2 [facility] [address] [place] [address] Nov, 15 [facility] [place] [address] [place] [address] Nov, 15 [facility] [address] [place] [address] Nov, 15 [facility] [address] [place] [address] Nov, 15 [facility] [address] [place] [address] Nov, 15 [facility] [address] [place] [address] Nov, 15 Gastroparesis 536.3 ; Essential hypertension, benign 401.1 ; Other vitamin B12 deficiency anemia 281.1 ; Malaise and fatigue 780.79 [address] Mixed hyperlipidemia 272.2 [facility] [address] [place] [address] Nov, 15 Gastroparesis 536.3 ; Essential hypertension, benign 401.1 and Esophageal reflux 530.81 [facility] [address] [place] [address] October, 15 Other vitamin B12 deficiency anemia 281.1 and Malaise and fatigue 780.[address] [place] [address] Sep, [address] [place] [address] Sep, [facility] [address] [place] [address] Aug, [address] [place] [address] Aug, [facility] [place] [address] [place] [address] Apr, 14 [facility] [address] [address] 10 Apr, 2013 [facility] [place] [address] [place] [address] 16 Mar, 14 [facility] [address] [address] 16 Mar, 2013 [facility] [place] [address] [place] [address] 22 Feb, 14 [facility] [address] [address] 22 Feb, 2013 [facility] [place] [address] [place] [address] 18 Feb, 14 [facility] [address] [address] 18 Feb, 2013 [facility] [place] [address] [place] [address] 17 Feb, 14 [facility] [place] [address] [place] [address] 17 Feb, 14 [facility] [address] [address] 17 Feb, 2013 [facility] [address] [address] 17 Feb, 2013 [facility] [address] [address] 17 Feb, 2013 [facility] [address] [address] 17 Feb, 2013 [facility] [place] [address] [place] [address] 17 Feb, 14 [facility] [place] [address] [place] [address] 17 Feb, 14 [facility] [place] [address] [place] [address] 02 Nov, 14 [facility] [address] [id number] [place] [address] Nov, [facility] [place] [address] [facility] [place] [address] Sep, 14 [facility] [address] [id number] [place] [address] Sep, [facility] [place] [address] [place] [address] Sep, 14 [facility] [address] [id number] [place] [address] Sep, [facility] [place] [address] [place] [address] Sep, 14 [facility] [address] [id number] [place] [address] Sep, [facility] [place] [address] [facility] [place] [address] Aug, 14 [facility] [place] [address] [facility] [place] [address] Aug, 14 [facility] [place] [address] [facility] [place] [address] Aug, 14 [facility] [place] [address] [facility] [place] [address] Aug, 14 [facility] [place] [address] [facility] [place] [address] Aug, 14 [facility] [address] [id number] [place] [address] Aug, [facility] [address] [id number] [place] [address] Aug, [facility] [address] [id number] [place] [address] Aug, [facility] [address] [id number] [place] [address] Aug, [facility] [address] [id number] [place] [address] Aug, [facility] [address] [id number] [place] [address] Aug, [facility] [place] [address] [place] [address] Aug, 14 [facility] [address] [id number] [place] [address] Aug, [facility] [address] [id number] [place] [address] Aug, [facility] [address] [id number] [place] [address] Aug, [facility] [place] [address] [place] [address] Aug, 14 [facility] [place] [address] [place] [address] Aug, 14 [facility] [address] [id number] [place] [address] Aug, [facility] [place] [address] [place] [address] Jul, 14 [facility] [address] [id number] [place] [address] Jul, [facility] [place] [address] [place] [address] Jun, 14 [facility] [address] [id number] [place] [address] Jun, [facility] [place] [address] [place] [address] Jun, 14 [facility] [address] [id number] [place] [address] Jun, [facility] [place] [address] [place] [address] Jun, 14 [facility] [address] [id number] [place] [address] Jun, [facility] [place] [address] [place] [address] Jun, 14 [facility] [address] [id number] [place] [address] Jun, [facility] [place] [address] [facility] [place] [address] May, 13 [facility] [address] [id number] [place] [address] May, [facility] [place] [address] [facility] [place] [address] May, 13 [facility] [address] [id number] [place] [address] May, 2012 [facility] [place] [address] [facility] [place] [address] 18 May, 13 [facility] [id number] [place] [address] May, [facility] [place] [address] [place] [address] May, 13 [facility] [address] [id number] [place] [address] May, [facility] [place] [address] [place] [address] May, 13 [facility] [address] [id number] [place] [address] May, [facility] [place] [address] [place] [address] May, 13 [facility] [address] [id number] [place] [address] May, [facility] [place] [address] [place] [address] Apr, 13 [facility] [address] [id number] [place] [address] Apr, [facility] [id number] [place] [address] Apr, [facility] [place] [address] [place] [address] 18 Apr, 13 [facility] [id number] [place] [address] Apr, [facility] [place] [address] [place] [address] Apr, 13 [facility] [address] [id number] [place] [address] Apr, [facility] [place] [address] [place] [address] Apr, 13 [facility] [id number] [place] [address] Apr, [facility] [place] [address] Apr, 13 [facility] [address] [address] Apr, [facility] [place] [address] Mar, [address] [address] Mar, [facility] [place] [address] [place] [address] Mar, 13 [facility] [id number] [place] [address] Mar, IMMUNIZATIONS No Known Immunizations SOCIAL HISTORY [...]
--- OUTSIDE RECORDS SUMMARY | 2019-09-08 13:52 | XMS REPORT ---
Author Author Ayla Stahl Organization [facility] Address [address] [place] [address] Care Team Providers Care Primary Grade Teacher Name Role Phone GERSON Stahl Unavailable PROBLEMS Type Condition ICD9-CM Code JLY16-IC Code Onset Dates Condition S tatus SNOMED Code Problem Gastroparesis 536.3 Active 280095 006 Problem Esophageal reflux 530.81 Active 24 9155410 Problem Essential hypertension, benign 401.1 Active 9241963 Problem Need for prophylactic vaccination and inoculation, Influen za V04.81 Active 204480040 Problem Mixed hyperlipidemia E78.2 Active 940476751 Problem Lumbago 724.2 Active 790958127 Problem Gastro-esophageal reflux disease without esophagitis K21.9 Active 582855804 Problem Pain in joint, ankle and foot 719.47 Active 187622493 Problem Allergic rhinitis due to pollen 477.0 Active 14541116 Problem Depressive disorder, not elsewhere classified 311 Active 50393871 Problem Mixed hyperlipidemia 272.2 Active 736017536 Problem Essential (primary) hypertension I10 Active 98098658 ALLERGIES No Information ENCOUNTERS Encounter Location Date Diagnosis [facility] [address] [place] [address] Mar, 17 Encounter for immunization Z23 [facility] [address] [place] [address] Jan, 17 Elevated glucose level R73.09 [facility] [address] [place] [address] Jan, 17 Essential (primary) hypertension I10 [facility] [address] [place] [address] Dec, 17 Mixed hyperlipidemia E78.2 and Essential (primary) hypertension I10 [facility] [address] [place] [address] Dec, 17 Essential (primary) hypertension I10 and Gastro-esophageal reflux disease without esophagitis K21.9 [facility] [address] [address] Mar, 16 Encounter for immunization Z23 [facility] [address] [address] Feb, 16 [facility] for [facility]23 [facility] [address] [address] Jan, 16 Chronic kidney disease (CKD) stage G3b/A1, moderately decreased glomerular filtration rate (GFR) between 30-44 mL/min/1.73 square meter and albuminuria creatinine ratio less than 30 mg/g N18.3 [facility] [address] [address] Dec, 16 Essential (primary) hypertension I10 and Mixed hyperlipidemia E78.2 [facility] [address] [address] Dec, 16 Essential (primary) hypertension I10 ; Gastro-esophageal reflux disease without esophagitis K21.9 and Gastroparesis K31.84 [facility] [address] [address] Dec, 16 [facility] [address] [address] 18 Jul, 16 Well woman exam Z01.419 ; Postmenopausal Z78.0 and Encounter for screening mammogram for malignant neoplasm of breast Z12.31 [facility] [address] [address] Jul, 16 [address] [address] Jun, 16 Shingles B02.9 ; Low back pain M54.5 ; Sciatica, unspecified side M54.30 and Encounter for immunization Z23 [facility] [address] [address] 04 Apr, 15 [facility] [address] [address] Mar, 15 Encounter for immunization Z23 [facility] [place] [address] [place] [address] Jan, 15 [facility] [place] [address] [place] [address] Jan, 15 [facility] [place] [address] [place] [address] Nov, 15 Lumbar back pain 724.2 [facility] [address] [place] [address] Nov, 15 [facility] [place] [address] [place] [address] Nov, 15 [facility] [address] [place] [address] Nov, 15 [facility] [address] [place] [address] Nov, 15 [facility] [address] [place] [address] Nov, 15 [facility] [address] [place] [address] Nov, 15 Gastroparesis 536.3 ; Essential hypertension, benign 401.1 ; Other vitamin B12 deficiency anemia 281.1 ; Malaise and fatigue 780.79 and Mixed hyperlipidemia 272.2 [facility] [address] [place] [address] Nov, 15 Gastroparesis 536.3 ; Essential hypertension, benign 401.1 and Esophageal reflux 530.81 [facility] [address] [place] [address] October, 15 Other vitamin B12 deficiency anemia 281.1 and Malaise and fatigue 780.79 [id number] [place] [address] Sep, [id number] [place] [address] Sep, [facility] [address] [place] [address] Aug, [id number] [place] [address] Aug, [facility] [place] [address] [place] [address] Apr, 14 [facility] [address] [address] 10 Apr, 2013 [facility] [place] [address] [place] [address] 16 Mar, 14 [facility] [address] [address] 16 Mar, 2013 [facility] [place] [address] [place] [address] 22 Feb, 14 [facility] [address] [address] 22 Feb, 2013 [facility] [place] [address] [place] [address] 18 Feb, 14 [facility] [address] [address] 18 Feb, 2013 [facility] [place] [address] [place] [address] 17 Feb, 14 [facility] [place] [address] [place] [address] 17 Feb, 14 [facility] [address] [address] 17 Feb, 2013 [facility] [address] [address] 17 Feb, 2013 [facility] [address] [address] 17 Feb, 2013 [facility] [address] [address] 17 Feb, 2013 [facility] [place] [address] [place] [address] 17 Feb, 14 [facility] [place] [address] [place] [address] 17 Feb, 14 [facility] [place] [address] [place] [address] 02 Nov, 14 [facility] [address] [id number] [place] [address] Nov, [facility] [place] [address] [facility] [address] Sep, 14 [facility] [address] [id number] [place] [address] Sep, [facility] [place] [address] [place] [address] Sep, 14 [facility] [address] [id number] [place] [address] Sep, [facility] [place] [address] [place] [address] Sep, 14 [facility] [address] [id number] [place] [address] Sep, [facility] [place] [address] [facility] [address] Aug, 14 [facility] [place] [address] [facility] [address] Aug, 14 [facility] [place] [address] [facility] [address] Aug, 14 [facility] [place] [address] [facility] [address] Aug, 14 [facility] [place] [address] [facility] [address] Aug, 14 [facility] [address] [id number] [place] [address] Aug, [facility] [address] [id number] [place] [address] Aug, [facility] [address] [id number] [place] [address] Aug, [facility] [address] [id number] [place] [address] Aug, [facility] [address] [id number] [place] [address] Aug, [facility] [address] [id number] [place] [address] Aug, [facility] [place] [address] [place] [address] Aug, 14 [facility] [address] [id number] [place] [address] Aug, [facility] [address] [id number] [place] [address] Aug, [facility] [address] [id number] [place] [address] Aug, [facility] [place] [address] [place] [address] Aug, 14 [facility] [place] [address] [place] [address] Aug, 14 [facility] [address] [id number] [place] [address] Aug, [facility] [place] [address] [place] [address] Jul, 14 [facility] [address] [id number] [place] [address] Jul, [facility] [place] [address] [place] [address] Jun, 14 [facility] [address] [id number] [place] [address] Jun, [facility] [place] [address] [place] [address] Jun, 14 [facility] [address] [id number] [place] [address] Jun, [facility] [place] [address] [place] [address] Jun, 14 [facility] [address] [id number] [place] [address] Jun, [facility] [place] [address] [place] [address] Jun, 14 [facility] [address] [id number] [place] [address] Jun, [facility] [place] [address] [facility] [address] May, 13 [facility] [address] [id number] [place] [address] May, [facility] [place] [address] [facility] [place] [address] May, 13 [facility] [address] [id number] [place] [address] May, 2012 [facility] [place] [address] [facility] [address] 18 May, 13 [facility] [id number] [place] [address] May, [facility] [place] [address] [place] [address] May, 13 [facility] [address] [id number] [place] [address] May, [facility] [place] [address] [place] [address] May, 13 [facility] [address] [id number] [place] [address] May, [facility] [place] [address] [place] [address] May, 13 [facility] [address] [id number] [place] [address] May, [facility] [place] [address] [place] [address] Apr, 13 [facility] [address] [id number] [place] [address] Apr, [facility] [id number] [place] [address] Apr, [facility] [place] [address] [place] [address] 18 Apr, 13 [facility] [id number] [place] [address] Apr, [facility] [place] [address] [place] [address] Apr, 13 [facility] [id number] [place] [address] Apr, [facility] [place] [address] [place] [address] Apr, 13 [facility] [id number] [place] [address] Apr, [facility] [place] [address] Apr, 13 [facility] [address] [address] Apr, [facility] [place] [address] Mar, 13 [place] [address] [address] Mar, [facility] [place] [address] [place] [address] Mar, 13 [facility] [id number] [place] [address] Mar, IMMUNIZATIONS No Known Immunizations SOCIAL HISTORY [...]
--- OUTSIDE RECORDS SUMMARY | 2019-09-08 13:52 | XMS REPORT ---
Author Author Ayla Stahl Organization [facility] Address [address] [place] [address] Care Team Providers Care Granulator Tender Name Role Phone GERSON Stahl Unavailable PROBLEMS Type Condition ICD9-CM Code ILZ05-[place] Code Onset Dates Condition S tatus SNOMED Code Problem Gastroparesis 536.3 Active 000056 006 Problem Esophageal reflux 530.81 Active 24 6626392 Problem Essential hypertension, benign 401.1 Active 5519696 Problem Need for prophylactic vaccination and inoculation, Influen za V04.81 Active 504704664 Problem Mixed hyperlipidemia E78.2 Active 362581421 Problem Lumbago 724.2 Active 514205391 Problem Gastro-esophageal reflux disease without esophagitis K21.9 Active 417534544 Problem Pain in joint, ankle and foot 719.47 Active 690845708 Problem Allergic rhinitis due to pollen 477.0 Active 32376356 Problem Depressive disorder, not elsewhere classified 311 Active 00386395 Problem Mixed hyperlipidemia 272.2 Active 333251367 Problem Essential (primary) hypertension I10 Active 05708919 ALLERGIES No Information ENCOUNTERS Encounter Location Date Diagnosis [facility] [address] [place] [address] Mar, 17 Encounter for immunization Z23 [facility] [address] [place] [address] Jan, 17 Elevated glucose level R73.09 [facility] [address] [place] [address] Jan, 17 Essential (primary) hypertension I10 [facility] [address] [place] [address] Dec, 17 Mixed hyperlipidemia E78.2 and Essential (primary) hypertension I10 [facility] [address] [place] [address] Dec, 17 Essential (primary) hypertension I10 and Gastro-esophageal reflux disease without esophagitis K21.9 [facility] [address] [address] Mar, 16 Encounter for immunization Z23 [facility] [address] [address] Feb, 16 Encounter for immunization Z23 [facility] [address] [address] Jan, 16 Chronic kidney disease (CKD) stage G3b/A1, moderately decreased glomerular filtration rate (GFR) between 30-44 mL/min/1.73 square meter and albuminuria creatinine ratio less than 30 mg/g N18.3 [facility] [address] [address] Dec, 16 Essential (primary) hypertension I10 and Mixed hyperlipidemia E78.2 [facility] [address] [address] Dec, 16 Essential (primary) hypertension I10 ; Gastro-esophageal reflux disease without esophagitis K21.9 and Gastroparesis K31.84 [facility] [address] [address] Dec, 16 [facility] [address] [address] 18 Jul, 16 Well woman exam Z01.419 ; Postmenopausal Z78.0 and Encounter for screening mammogram for malignant neoplasm of breast Z12.31 [facility] [address] [address] Jul, 16 [address] [address] Jun, 16 Shingles B02.9 ; Low back pain M54.5 ; Sciatica, unspecified side M54.30 and Encounter for immunization Z23 [facility] [address] [address] 04 Apr, 15 [facility] [address] [address] Mar, 15 Encounter for immunization Z23 [facility] [address] [place] [address] Jan, 15 [facility] [address] [place] [address] Jan, 15 [facility] [address] [address] Nov, 15 Lumbar back pain 724.2 [facility] [address] [address] Nov, 15 [facility] [address] [place] [address] Nov, 15 [facility] [address] [place] [address] Nov, 15 [facility] [address] [address] Nov, 15 [facility] [address] [address] Nov, 15 [facility] [address] [address] Nov, 15 Gastroparesis 536.3 ; Essential hypertension, benign 401.1 ; Other vitamin B12 deficiency anemia 281.1 ; Malaise and fatigue 780.79 and Mixed hyperlipidemia 272.2 [facility] [address] [address] Nov, 15 Gastroparesis 536.3 ; Essential hypertension, benign 401.1 and Esophageal reflux 530.81 [facility] [address] [place] [address] October, 15 Other vitamin B12 deficiency anemia 281.1 and Malaise and fatigue 780.[address] [id number] [address] [place] [address] Sep, [facility] [id number] [address] [place] [address] Sep, [facility] [address] [address] Aug, 15 [place] [id number] [address] [place] [address] Aug, [facility] [address] [place] [address] 10 Apr, 14 [facility] [address] [facility] [id number] [address] [place] [address] 10 Apr, 2014 [facility] [address] [place] [address] 16 Mar, 14 [facility] [address] [facility] [id number] [address] [place] [address] 16 Mar, 2014 [facility] [address] [place] [address] 22 Feb, 14 [facility] [address] [facility] [id number] [address] [place] [address] 22 Feb, 2013 [facility] [address] [place] [address] 18 Feb, 14 [facility] [address] [facility] [id number] [address] [place] [address] 18 Feb, 2013 [facility] [address] [place] [address] 17 Feb, 14 [facility] [address] [place] [address] 17 Feb, 14 [facility] [address] [facility] [id number] [address] [place] [address] 17 Feb, 2013 [facility] [address] [facility] [id number] [address] [place] [address] 17 Feb, 2013 [facility] [address] [facility] [id number] [address] [place] [address] 17 Feb, 2013 [facility] [address] [facility] [id number] [address] [place] [address] 17 Feb, 2013 [facility] [address] [place] [address] 17 Feb, 20 14 [facility] [address] [place] [address] 17 Feb, 20 14 [facility] [address] [facility] [place] [address] Nov, 14 [facility] [address] [facility] [id number] [facility] [place] [address] Nov, [facility] [address] [place] [address] Sep, 14 [facility] [address] [facility] [id number] [facility] [place] [address] Sep, [facility] [address] [place] [address] Sep, 14 [facility] [address] [facility] [id number] [address] [place] [address] Sep, [facility] [address] [place] [address] Sep, 14 [facility] [address] [facility] [id number] [address] [place] [address] Sep, [facility] [address] [place] [address] Aug, 14 [facility] [address] [place] [address] Aug, 14 [facility] [address] [place] [facility] [place] [address] Aug, 14 [facility] [address] [place] [address] Aug, 14 [facility] [address] [place] [address] Aug, 14 [facility] [address] [facility] [id number] [facility] [place] [address] Aug, [facility] [address] [facility] [id number] [address] [place] [address], [place] [address] Aug, [facility] [address] [facility] [id number] [facility] [place] [address] Aug, [facility] [address] [facility] [id number] [address] [place] [address] Aug, [facility] [address] [id number] [facility] [place] [address] Aug, [facility] [address] [facility] [id number] [address] [place] [address], [place] [address] Aug, [facility] [address] [place] [address] Aug, 14 [facility] [address] [facility] [id number] [facility] [place] [address] Aug, [facility] [address] [facility] [id number] [address] [place] [address], [place] [address] Aug, [facility] [address] [facility] [id number] [address] [place] [address], [place] [address] Aug, [facility] [address] [place] [address] Aug, 14 [facility] [address] [place] [address] Aug, 14 [facility] [address] [facility] [id number] [address] [place] [address], [place] [address] Aug, [facility] [address] [place] [address] Jul, 14 [facility] [address] [facility] [id number] [address] [place] [address], [place] [address] Jul, [facility] [address] [place] [address] Jun, 14 [facility] [address] [facility] [id number] [address] [place] [address], [place] [address] Jun, [facility] [address] [place] [address] Jun, 14 [facility] [address] [facility] [id number] [address] [place] [address], [place] [address] Jun, [facility] [address] [place] [address] Jun, 14 [facility] [address] [facility] [id number] [address] [place] [address] Jun, [facility] [address] [place] [address] Jun, 14 [facility] [address] [facility] [id number] [address] [place] [address] Jun, [facility] [address] [place] [address] May, 13 [facility] [address] [facility] [id number] [address] [place] [address] May, [facility] [address] [place] [address] May, 13 [facility] [address] [facility] [id number] [address] [place] [address] May, [facility] [address] [place] [address] May, 13 [facility] [address] [facility] [id number] [address] [place] [address] May, [facility] [address] [place] [address] May, 13 [facility] [address] [facility] [id number] [address] [place] [address] May, [facility] [address] [place] [address] May, 13 [facility] [address] [facility] [id number] [address] [place] [address] May, [facility] [address] [place] [address] May, 13 [facility] [address] [facility] [id number] [address] [place] [address] May, [facility] [address] [place] [address] Apr, 13 [facility] [address] [facility] [id number] [address] [place] [address] Apr, [facility] [address] [facility] [id number] [address] [place] [address] Apr, [facility] [address] [place] [address] Apr, 13 [facility] [address] [place] [id number] [address] [place] [address] Apr, [facility] [address] [place] [address] Apr, 13 [facility] [address] [place] [id number] [address] [place] [address] Apr, [facility] [address] [place] [address] Apr, 13 [facility] [address] [place] [id number] [address] [place] [address] Apr, [facility] [address] [place] [address] Apr, 13 [facility] [id number] [place] [address] Apr, [facility] [address] [place] [address] Mar, 13 [facility] [address] [place] [id number] [address] [place] [address] Mar, [facility] [address] [place] [address] Mar, 13 [facility] [address] [place] [id number] [address] [place] [address] Mar, IMMUNIZATIONS No Known Immunizations SOCIAL HISTORY [...] W RADIAL HEAD '; RT KNEE REPLACEMENT '10 Surgical History cataract-lens implants - BILAT Surgical History ANTERIOR REPAIR VAGINAL VAULT PROLAPSE 0 02/2012 Surgical History ESOPHAGUS PUNCTURES AND LUNG COLLAPSE Surgical History RECTAL REPAIR 09/2012 Hospitalization History Surgery(s) only
--- OUTSIDE RECORDS SUMMARY | 2019-09-08 13:52 | XMS REPORT ---
Author Author Ayla Stahl Organization [facility] Address [address] [place] [address] Care Team Providers Care Spring Forger Name Role Phone GERSON Stahl Unavailable PROBLEMS Type Condition ICD9-CM Code QNB49-TI Code Onset Dates Condition S tatus SNOMED Code Problem Gastroparesis 536.3 Active 259358 006 Problem Esophageal reflux 530.81 Active 24 6980441 Problem Essential hypertension, benign 401.1 Active 2542580 Problem Need for prophylactic vaccination and inoculation, Influen za V04.81 Active 095701500 Problem Mixed hyperlipidemia E78.2 Active 208525187 Problem Lumbago 724.2 Active 278420652 Problem Gastro-esophageal reflux disease without esophagitis K21.9 Active 546784983 Problem Pain in joint, ankle and foot 719.47 Active 157303165 Problem Allergic rhinitis due to pollen 477.0 Active 17988878 Problem Depressive disorder, not elsewhere classified 311 Active 71100892 Problem Mixed hyperlipidemia 272.2 Active 389142917 Problem Essential (primary) hypertension I10 Active 24316063 ALLERGIES No Information ENCOUNTERS Encounter Location Date Diagnosis [facility] [address] [place] [address] Mar, 17 Encounter for immunization Z23 [facility] [address] [place] [address] Jan, 17 Elevated glucose level R73.09 [facility] [address] [place] [address] Jan, 17 Essential (primary) hypertension I10 [facility] [address] [place] [address] Dec, 17 Mixed hyperlipidemia E78.2 and Essential (primary) hypertension I10 [facility] [address] [place] [address] Dec, 17 Essential (primary) hypertension I10 and Gastro-esophageal reflux disease without esophagitis K21.9 [facility] [address] [address] Mar, 16 Encounter for immunization Z23 [facility] [address] [address] Feb, 16 Encounter for immunization Z23 [facility] [address] [address] Jan, 16 Chronic kidney disease (CKD) stage G3b/A1, moderately decreased glomerular filtration rate (GFR) between 30-44 mL/min/1.73 square meter and albuminuria creatinine ratio less than 30 mg/g N18.3 [facility] [address] [address] Dec, 16 Essential (primary) hypertension I10 and Mixed hyperlipidemia E78.2 [facility] [address] [address] Dec, 16 Essential (primary) hypertension I10 ; Gastro-esophageal reflux disease without esophagitis K21.9 and Gastroparesis K31.84 [facility] [address] [address] Dec, 16 [facility] [address] [address] 18 Jul, 16 Well woman exam Z01.419 ; Postmenopausal Z78.0 and Encounter for screening mammogram for malignant neoplasm of breast Z12.31 [facility] [address] [address] Jul, 16 [address] [address] Jun, 16 Shingles B02.9 ; Low back pain M54.5 ; Sciatica, unspecified side M54.30 and Encounter for immunization Z23 [facility] [address] [address] 04 Apr, 15 [facility] [address] [address] Mar, 15 Encounter for immunization Z23 [facility] [place] [address] [place] [address] Jan, 15 [facility] [place] [address] [place] [address] Jan, 15 [facility] [place] [address] [place] [address] Nov, 15 Lumbar back pain 724.2 [facility] [address] [place] [address] Nov, 15 [facility] [place] [address] [place] [address] Nov, 15 [facility] [address] [place] [address] Nov, 15 [facility] [address] [place] [address] Nov, 15 [facility] [address] [place] [address] Nov, 15 [facility] [address] [place] [address] Nov, 15 Gastroparesis 536.3 ; Essential hypertension, benign 401.1 ; Other vitamin B12 deficiency anemia 281.1 ; Malaise and fatigue 780.79 and Mixed hyperlipidemia 272.2 [facility] [address] [place] [address] Nov, 15 Gastroparesis 536.3 ; Essential hypertension, benign 401.1 and Esophageal reflux 530.81 [facility] [address] [place] [address] October, 15 Other vitamin B12 deficiency anemia 281.1 and Malaise and fatigue 780.79 [id number] [place] [address] Sep, [address] [place] [address] Sep, [facility] [address] [place] [address] Aug, [address] [place] [address] Aug, [facility] [place] [address] [place] [address] Apr, 14 [facility] [address] [address] 10 Apr, 2013 [facility] [place] [address] [place] [address] 16 Mar, 14 [facility] [address] [address] 16 Mar, 2013 [facility] [place] [address] [place] [address] 22 Feb, 14 [facility] [address] [address] 22 Feb, 2013 [facility] [place] [address] [place] [address] 18 Feb, 14 [facility] [address] [address] 18 Feb, 2013 [facility] [place] [address] [place] [address] 17 Feb, 14 [facility] [place] [address] [place] [address] 17 Feb, 14 [facility] [address] [address] 17 Feb, 2013 [facility] [address] [address] 17 Feb, 2013 [facility] [address] [address] 17 Feb, 2013 [facility] [address] [address] 17 Feb, 2013 [facility] [place] [address] [place] [address] 17 Feb, 14 [facility] [place] [address] [place] [address] 17 Feb, 14 [facility] [place] [address] [place] [address] 02 Nov, 14 [facility] [address] [id number] [place] [address] Nov, [facility] [place] [address] [facility] [place] [address] Sep, 14 [facility] [address] [id number] [place] [address] Sep, [facility] [place] [address] [place] [address] Sep, 14 [facility] [address] [id number] [place] [address] Sep, [facility] [place] [address] [place] [address] Sep, 14 [facility] [address] [id number] [place] [address] Sep, [facility] [place] [address] [facility] [place] [address] Aug, 14 [facility] [place] [address] [facility] [place] [address] Aug, 14 [facility] [place] [address] [facility] [place] [address] Aug, 14 [facility] [place] [address] [facility] [place] [address] Aug, 14 [facility] [place] [address] [facility] [place] [address] Aug, 14 [facility] [address] [id number] [place] [address] Aug, [facility] [address] [id number] [place] [address] Aug, [facility] [address] [id number] [place] [address] Aug, [facility] [address] [id number] [place] [address] Aug, [facility] [address] [id number] [place] [address] Aug, [facility] [address] [id number] [place] [address] Aug, [facility] [place] [address] [place] [address] Aug, 14 [facility] [address] [id number] [place] [address] Aug, [facility] [address] [id number] [place] [address] Aug, [facility] [address] [id number] [place] [address] Aug, [facility] [place] [address] [place] [address] Aug, 14 [facility] [place] [address] [place] [address] Aug, 14 [facility] [address] [id number] [place] [address] Aug, [facility] [place] [address] [place] [address] Jul, 14 [facility] [address] [id number] [place] [address] Jul, [facility] [place] [address] [place] [address] Jun, 14 [facility] [address] [id number] [place] [address] Jun, [facility] [place] [address] [place] [address] Jun, 14 [facility] [address] [id number] [place] [address] Jun, [facility] [place] [address] [place] [address] Jun, 14 [facility] [address] [id number] [place] [address] Jun, [facility] [place] [address] [place] [address] Jun, 14 [facility] [address] [id number] [place] [address] Jun, [facility] [place] [address] [facility] [place] [address] May, 13 [facility] [address] [id number] [place] [address] May, [facility] [place] [address] [facility] [place] [address] May, 13 [facility] [address] [id number] [place] [address] May, 2012 [facility] [place] [address] [facility] [place] [address] 18 May, 13 [facility] [id number] [place] [address] May, [facility] [place] [address] [place] [address] May, 13 [facility] [address] [id number] [place] [address] May, [facility] [place] [address] [place] [address] May, 13 [facility] [address] [id number] [place] [address] May, [facility] [place] [address] [place] [address] May, 13 [facility] [address] [id number] [place] [address] May, [facility] [place] [address] [place] [address] Apr, 13 [facility] [address] [id number] [place] [address] Apr, [facility] [id number] [place] [address] Apr, [facility] [place] [address] [place] [address] 18 Apr, 13 [facility] [id number] [place] [address] Apr, [facility] [place] [address] [place] [address] Apr, 13 [facility] [address] [address] Apr, [facility] [place] [address] [place] [address] Apr, 13 [facility] [address] [address] Apr, [facility] [address] [place] [address] Apr, 13 [facility] [address] [address] Apr, [facility] [place] [address] Mar, [address] [place] [address] [address] Mar, [facility] [place] [address] Mar, [address] [place] [address] [address] Mar, IMMUNIZATIONS No Known Immunizations SOCIAL HISTORY Never Assessed REASON FOR VISIT PLAN OF CARE VITAL SIGNS Height 63 in 2013-10-18 Weight 202 lbs 2013-10-18 Temperature 98.2 degrees Fahrenheit 2013-10-18 Heart Rate 72 bpm 2013-10-18 Respiratory Rate 20 2013-10-18 Blood pressure systolic 100 mmHg 2013-10-18 Blood pressure diastolic 60 mmHg 2013-10-18 MEDICATIONS Unknown Medications RESULTS No Results PROCEDURES [...] surgery - RT ELBO W RADIAL HEAD ; RT KNEE REPLACEMENT '10 Surgical History cataract-lens implants - BILAT Surgical History ANTERIOR REPAIR VAGINAL VAULT PROLAPSE 0 02/2012 Surgical History ESOPHAGUS PUNCTURES AND LUNG COLLAPSE Surgical History RECTAL REPAIR 09/2012 Hospitalization History Surgery(s) only
--- OUTSIDE RECORDS SUMMARY | 2019-09-08 13:52 | XMS REPORT ---
Author Author Ayla Stahl Organization [facility] Address [address] [place] [address] Care Team Providers Care Tag Writer Name Role Phone GERSON Stahl Unavailable PROBLEMS Type Condition ICD9-CM Code QBU55-VG Code Onset Dates Condition S tatus SNOMED Code Problem Gastroparesis 536.3 Active 882524 006 Problem Esophageal reflux 530.81 Active 24 1061532 Problem Essential hypertension, benign 401.1 Active 6393419 Problem Need for prophylactic vaccination and inoculation, Influen za V04.81 Active 430124522 Problem Mixed hyperlipidemia E78.2 Active 216000591 Problem Lumbago 724.2 Active 098121509 Problem Gastro-esophageal reflux disease without esophagitis K21.9 Active 079491197 Problem Pain in joint, ankle and foot 719.47 Active 267309024 Problem Allergic rhinitis due to pollen 477.0 Active 42279293 Problem Depressive disorder, not elsewhere classified 311 Active 10011638 Problem Mixed hyperlipidemia 272.2 Active 763364587 Problem Essential (primary) hypertension I10 Active 92667105 ALLERGIES No Information ENCOUNTERS Encounter Location Date Diagnosis [facility] [address] [place] [address] Mar, 17 Encounter for immunization Z23 [facility] [address] [place] [address] Jan, 17 Elevated glucose level R73.09 [facility] [address] [place] [address] Jan, 17 Essential (primary) hypertension I10 [facility] [address] [place] [address] Dec, 17 Mixed hyperlipidemia E78.2 and Essential (primary) hypertension I10 [facility] [address] [place] [address] Dec, 17 Essential (primary) hypertension I10 and Gastro-esophageal reflux disease without esophagitis K21.9 [facility] [address] [address] Mar, 16 Encounter for immunization Z23 [facility] [address] [address] Feb, 16 Encounter for immunization Z23 [facility] [address] [address] Jan, 16 Chronic kidney disease (CKD) stage G3b/A1, moderately decreased glomerular filtration rate (GFR) between 30-44 mL/min/1.73 square meter and albuminuria creatinine ratio less than 30 mg/g N18.3 [facility] [address] [address] Dec, 16 Essential (primary) hypertension I10 and Mixed hyperlipidemia E78.2 [facility] [address] [address] Dec, 16 Essential (primary) hypertension I10 ; Gastro-esophageal reflux disease without esophagitis K21.9 and Gastroparesis K31.84 [facility] [address] [address] Dec, 16 [facility] [address] [address] 18 Jul, 16 Well woman exam Z01.419 ; Postmenopausal Z78.0 and Encounter for screening mammogram for malignant neoplasm of breast Z12.31 [facility] [address] [address] Jul, 16 Shingles B02.[address] [address] Jun, 16 Shingles B02.9 ; Low back pain M54.5 ; Sciatica, unspecified side M54.30 and Encounter for immunization Z23 [facility] [address] [address] 04 Apr, 15 [facility] [address] [address] Mar, 15 Encounter for immunization Z23 [facility] [place] [address] [place] [address] Jan, 15 [facility] [place] [address] [place] [address] Jan, 15 [facility] [place] [address] [place] [address] Nov, 15 Lumbar back pain 724.2 [facility] [address] [place] [address] Nov, 15 [facility] [place] [address] [place] [address] Nov, 15 [facility] [address] [place] [address] Nov, 15 [facility] [address] [place] [address] Nov, 15 [facility] [address] [place] [address] Nov, 15 [facility] [address] [place] [address] Nov, 15 Gastroparesis 536.3 ; Essential hypertension, benign 401.1 ; Other vitamin B12 deficiency anemia 281.1 ; Malaise and fatigue 780.79 and Mixed hyperlipidemia 272.2 [facility] [address] [place] [address] Nov, 15 Gastroparesis 536.3 ; Essential hypertension, benign 401.1 and Esophageal reflux 530.81 [facility] [address] [place] [address] October, 15 Other vitamin B12 deficiency anemia 281.1 and Malaise and fatigue 780.[address] [place] [address] Sep, [address] [place] [address] Sep, [facility] [address] [place] [address] Aug, [address] [place] [address] Aug, [facility] [place] [address] [place] [address] Apr, 14 [facility] [address] [address] 10 Apr, 2013 [facility] [place] [address] [place] [address] 16 Mar, 14 [facility] [address] [address] 16 Mar, 2013 [facility] [place] [address] [place] [address] 22 Feb, 14 [facility] [address] [address] 22 Feb, 2013 [facility] [place] [address] [place] [address] 18 Feb, 14 [facility] [address] [address] 18 Feb, 2013 [facility] [place] [address] [place] [address] 17 Feb, 14 [facility] [place] [address] [place] [address] 17 Feb, 14 [facility] [address] [address] 17 Feb, 2013 [facility] [address] [address] 17 Feb, 2013 [facility] [address] [address] 17 Feb, 2013 [facility] [address] [address] 17 Feb, 2013 [facility] [place] [address] [place] [address] 17 Feb, 14 [facility] [place] [address] [place] [address] 17 Feb, 14 [facility] [place] [address] [place] [address] 02 Nov, 14 [facility] [address] [id number] [place] [address] Nov, [facility] [place] [address] [place] [facility] [place] [address] Sep, 14 [facility] [address] [id number] [place] [address] Sep, [facility] [place] [address] [place] [address] Sep, 14 [facility] [address] [id number] [place] [address] Sep, [facility] [place] [address] [place] [address] Sep, 14 [facility] [address] [id number] [place] [address] Sep, [facility] [place] [address] [place] [facility] [address] Aug, 14 [facility] [place] [address] [place] [facility] [place] [address] Aug, 14 [facility] [place] [address] [place] [facility] [place] [address] Aug, 14 [facility] [place] [address] [place] [facility] [place] [address] Aug, 14 [facility] [place] [address] [place] [facility] [place] [address] Aug, 14 [facility] [address] [id number] [place] [address] Aug, [facility] [address] [id number] [place] [address] Aug, [facility] [address] [id number] [place] [address] Aug, [facility] [address] [id number] [place] [address] Aug, [facility] [address] [id number] [place] [address] Aug, [facility] [address] [id number] [place] [address] Aug, [facility] [place] [address] [place] [address] Aug, 14 [facility] [address] [id number] [place] [address] Aug, [facility] [address] [id number] [place] [address] Aug, [facility] [address] [id number] [place] [address] Aug, [facility] [place] [address] [place] [address] Aug, 14 [facility] [place] [address] [place] [address] Aug, 14 [facility] [address] [id number] [place] [address] Aug, [facility] [place] [address] [place] [address] Jul, 14 [facility] [address] [id number] [place] [address] Jul, [facility] [place] [address] [place] [address] Jun, 14 [facility] [address] [id number] [place] [address] Jun, [facility] [place] [address] [place] [address] Jun, 14 [facility] [address] [id number] [place] [address] Jun, [facility] [place] [address] [place] [address] Jun, 14 [facility] [address] [id number] [place] [address] Jun, [facility] [place] [address] [place] [address] Jun, 14 [facility] [address] [id number] [place] [address] Jun, [facility] [place] [address] [place] [facility] [place] [address] May, 13 [facility] [address] [id number] [place] [address] May, [facility] [place] [address] [place] [facility] [place] [address] May, 13 [facility] [address] [id number] [place] [address] May, 2012 [facility] [place] [address] [place] [facility] [place] [address] 18 May, 13 [facility] [id number] [place] [address] May, [facility] [place] [address] [place] [address] May, 13 [facility] [address] [id number] [place] [address] May, [facility] [place] [address] [place] [address] May, 13 [facility] [address] [id number] [place] [address] May, [facility] [place] [address] [place] [address] May, 13 [facility] [address] [id number] [place] [address] May, [facility] [place] [address] [place] [address] Apr, 13 [facility] [address] [id number] [place] [address] Apr, [facility] [id number] [place] [address] Apr, [facility] [place] [address] [place] [address] 18 Apr, 13 [facility] [id number] [place] [id number] Apr, [facility] [place] [address] [place] [address] Apr, 13 [facility] [id number] [place] [phone] Apr, [facility] [place] [address] [place] [address] Apr, 13 [facility] [address] [address] Apr, [facility] [address] [place] [address] Apr, 13 [facility] [address] [address] Apr, [facility] [place] [address] Mar, 13 [place] [address] [address] Mar, [facility] [place] [address] Mar, 13 [place] [address] [address] Mar, IMMUNIZATIONS No Known Immunizations SOCIAL HISTORY Never Assessed REASON FOR VISIT PLAN OF CARE VITAL SIGNS Height 63 in 2013-09-08 Weight 201.6 lbs 2013-09-08 Temperature 97.6 degrees Fahrenheit 2013-09-08 Heart Rate 80 bpm 2013-09-08 Respiratory Rate 20 2013-09-08 Blood pressure systolic 132 mmHg 2013-09-08 Blood pressure diastolic 68 mmHg 2013-09-08 MEDICATIONS Unknown Medications RESULTS No Results PROCEDURES [...]
--- OUTSIDE RECORDS SUMMARY | 2019-09-08 13:52 | XMS REPORT ---
Author Author Ayla Stahl Organization [facility] Address [address] [place] [address] Care Team Providers Care Clerk Of Court Name Role Phone GERSON Stahl Unavailable PROBLEMS Type Condition ICD9-CM Code IST75-AF Code Onset Dates Condition S tatus SNOMED Code Problem Gastroparesis 536.3 Active 638141 006 Problem Esophageal reflux 530.81 Active 24 0692283 Problem Essential hypertension, benign 401.1 Active 0800305 Problem Need for prophylactic vaccination and inoculation, Influen za V04.81 Active 161555871 Problem Mixed hyperlipidemia E78.2 Active 461741687 Problem Lumbago 724.2 Active 893826678 Problem Gastro-esophageal reflux disease without esophagitis K21.9 Active 081391451 Problem Pain in joint, ankle and foot 719.47 Active 916398053 Problem Allergic rhinitis due to pollen 477.0 Active 84795551 Problem Depressive disorder, not elsewhere classified 311 Active 25862168 Problem Mixed hyperlipidemia 272.2 Active 163947133 Problem Essential (primary) hypertension I10 Active 09098831 ALLERGIES No Information ENCOUNTERS Encounter Location Date Diagnosis [facility] [address] [place] [address] Mar, 17 Encounter for immunization Z23 [facility] [address] [place] [address] Jan, 17 Elevated glucose level R73.09 [facility] [address] [place] [address] Jan, 17 Essential (primary) hypertension I10 [facility] [address] [place] [address] Dec, 17 Mixed hyperlipidemia E78.2 and Essential (primary) hypertension I10 [facility] [address] [place] [address] Dec, 17 Essential (primary) hypertension I10 and Gastro-esophageal reflux disease without esophagitis K21.9 [facility] [address] [address] Mar, 16 Encounter for immunization Z23 [facility] [address] [address] Feb, 16 Encounter for immunization Z23 [facility] [address] [address] Jan, 16 Chronic kidney disease (CKD) stage G3b/A1, moderately decreased glomerular filtration rate (GFR) between 30-44 mL/min/1.73 square meter and albuminuria creatinine ratio less than 30 mg/g N18.3 [facility] [address] [address] Dec, 16 Essential (primary) hypertension I10 and Mixed hyperlipidemia E78.2 [facility] [address] [address] Dec, 16 Essential (primary) hypertension I10 ; Gastro-esophageal reflux disease without esophagitis K21.9 and Gastroparesis K31.84 [facility] [address] [address] Dec, 16 [facility] [address] [address] 18 Jul, 16 Well woman exam Z01.419 ; Postmenopausal Z78.0 and Encounter for screening mammogram for malignant neoplasm of breast Z12.31 [facility] [address] [address] Jul, 16 [address] [address] Jun, 16 Shingles B02.9 ; Low back pain M54.5 ; Sciatica, unspecified side M54.30 and Encounter for immunization Z23 [facility] [address] [address] 04 Apr, 15 [facility] [address] [address] Mar, 15 Encounter for immunization Z23 [facility] [place] [address] [place] [address] Jan, 15 [facility] [place] [address] [place] [address] Jan, 15 [facility] [place] [address] [place] [address] Nov, 15 Lumbar back pain 724.2 [facility] [address] [place] [address] Nov, 15 [facility] [place] [address] [place] [address] Nov, 15 [facility] [address] [place] [address] Nov, 15 [facility] [address] [place] [address] Nov, 15 [facility] [address] [place] [address] Nov, 15 [facility] [address] [place] [address] Nov, 15 Gastroparesis 536.3 ; Essential hypertension, benign 401.1 ; Other vitamin B12 deficiency anemia 281.1 ; Malaise and fatigue 780.79 and Mixed hyperlipidemia 272.2 [facility] [address] [place] [address] Nov, 15 Gastroparesis 536.3 ; Essential hypertension, benign 401.1 and Esophageal reflux 530.81 [facility] [address] [place] [address] October, 15 Other vitamin B12 deficiency anemia 281.1 and Malaise and fatigue 780.79 [id number] [place] [address] Sep, [address] [place] [address] Sep, [facility] [address] [place] [address] Aug, 15 [address] [place] [address] Aug, [facility] [place] [address] [place] [address] Apr, 14 [facility] [address] [address] 10 Apr, 2013 [facility] [place] [address] [place] [address] 16 Mar, 14 [facility] [address] [address] 16 Mar, 2013 [facility] [place] [address] [place] [address] 22 Feb, 14 [facility] [address] [address] 22 Feb, 2013 [facility] [place] [address] [place] [address] 18 Feb, 14 [facility] [address] [address] 18 Feb, 2013 [facility] [place] [address] [place] [address] 17 Feb, 14 [facility] [place] [address] [place] [address] 17 Feb, 14 [facility] [address] [address] 17 Feb, 2013 [facility] [address] [address] 17 Feb, 2013 [facility] [address] [address] 17 Feb, 2013 [facility] [address] [address] 17 Feb, 2013 [facility] [place] [address] [place] [address] 17 Feb, 14 [facility] [place] [address] [place] [address] 17 Feb, 14 [facility] [place] [address] [place] [address] 02 Nov, 14 [facility] [address] [id number] [place] [address] Nov, [facility] [place] [address] [place] [facility] [place] [address] Sep, 14 [facility] [address] [id number] [place] [address] Sep, [facility] [place] [address] [place] [address] Sep, 14 [facility] [address] [id number] [place] [address] Sep, [facility] [place] [address] [place] [address] Sep, 14 [facility] [address] [id number] [place] [address] Sep, [facility] [place] [address] [place] [facility] [place] [address] Aug, 14 [facility] [place] [address] [place] [facility] [place] [address] Aug, 14 [facility] [place] [address] [place] [facility] [place] [address] Aug, 14 [facility] [place] [address] [place] [facility] [place] [address] Aug, 14 [facility] [place] [address] [place] [facility] [place] [address] Aug, 14 [facility] [address] [id number] [place] [address] Aug, [facility] [address] [id number] [place] [address] Aug, [facility] [address] [id number] [place] [address] Aug, [facility] [address] [id number] [place] [address] Aug, [facility] [address] [id number] [place] [address] Aug, [facility] [address] [id number] [place] [address] Aug, [facility] [place] [address] [place] [address] Aug, 14 [facility] [address] [id number] [place] [address] Aug, [facility] [address] [id number] [place] [address] Aug, [facility] [address] [id number] [place] [address] Aug, [facility] [place] [address] [place] [address] Aug, 14 [facility] [place] [address] [place] [address] Aug, 14 [facility] [address] [id number] [place] [address] Aug, [facility] [place] [address] [place] [address] Jul, 14 [facility] [address] [id number] [place] [address] Jul, [facility] [place] [address] [place] [address] Jun, 14 [facility] [address] [id number] [place] [address] Jun, [facility] [place] [address] [place] [address] Jun, 14 [facility] [address] [id number] [place] [address] Jun, [facility] [place] [address] [place] [address] Jun, 14 [facility] [address] [id number] [place] [address] Jun, [facility] [place] [address] [place] [address] Jun, 14 [facility] [address] [id number] [place] [address] Jun, [facility] [place] [address] [place] [facility] [place] [address] May, 13 [facility] [address] [id number] [place] [address] May, [facility] [place] [address] [facility] [place] [address] May, 13 [facility] [address] [id number] [place] [address] May, 2012 [facility] [place] [address] [place] [facility] [place] [address] 18 May, 13 [facility] [id number] [place] [address] May, [facility] [place] [address] [place] [address] May, 13 [facility] [address] [id number] [place] [address] May, [facility] [place] [address] [place] [address] May, 13 [facility] [address] [id number] [place] [address] May, [facility] [place] [address] [place] [address] May, 13 [facility] [address] [id number] [place] [address] May, [facility] [place] [address] [place] [address] Apr, 13 [facility] [address] [id number] [place] [address] Apr, [facility] [id number] [place] [address] Apr, [facility] [place] [address] [place] [address] 18 Apr, 13 [facility] [id number] [place] [address] Apr, [facility] [place] [address] [place] [address] Apr, 13 [facility] [id number] [place] [address] Apr, [facility] [place] [address] [place] [address] Apr, 13 [facility] [address] [address] Apr, [facility] [address] [place] [address] Apr, 13 [facility] [address] [address] Apr, [facility] [place] [address] Mar, 13 [place] [address] [address] Mar, [facility] [place] [address] Mar, 13 [place] [address] [address] Mar, IMMUNIZATIONS No Known Immunizations SOCIAL HISTORY Never Assessed REASON FOR VISIT PLAN OF CARE VITAL SIGNS Height 63 in 2013-11-29 Weight 199 lbs 2013-11-29 Temperature 98.2 degrees Fahrenheit 2013-11-29 Heart Rate 76 bpm 2013-11-29 Respiratory Rate 16 2013-11-29 Blood pressure systolic 112 mmHg 2013-11-29 Blood pressure diastolic 68 mmHg 2013-11-29 MEDICATIONS Unknown Medications RESULTS No Results PROCEDURES [...]
--- OUTSIDE RECORDS SUMMARY | 2019-09-08 13:52 | XMS REPORT ---
Author Author Ayla HERNANDEZ Organization [facility] [address] Address [address] [place] [address] Care Team Providers Care Fountain Jerk Name Role Phone BRIEN HERNANDEZ Unavailable PROBLEMS Type Condition ICD9-CM Code DPW20-RZ Code Onset Dates Condition S tatus SNOMED Code Problem Gastroparesis 536.3 Active 470838 006 Problem Esophageal reflux 530.81 Active 24 2433918 Problem Essential hypertension, benign 401.1 Active 4233401 Problem Need for prophylactic vaccination and inoculation, Influen za V04.81 Active 469342090 Problem Mixed hyperlipidemia E78.2 Active 470282562 Problem Lumbago 724.2 Active 985930154 Problem Gastro-esophageal reflux disease without esophagitis K21.9 Active 037175455 Problem Pain in joint, ankle and foot 719.47 Active 529406162 Problem Allergic rhinitis due to pollen 477.0 Active 50583476 Problem Depressive disorder, not elsewhere classified 311 Active 89463195 Problem Mixed hyperlipidemia 272.2 Active 175516614 Problem Essential (primary) hypertension I10 Active 59242860 ALLERGIES No Information ENCOUNTERS Encounter Location Date Diagnosis [facility] [address] [place] [address] Mar, 17 Encounter for immunization Z23 [facility] [address] [place] [address] Jan, 17 Elevated glucose level R73.09 [facility] [address] [place] [address] Jan, 17 Essential (primary) hypertension I10 [facility] [address] [place] [address] Dec, 17 Mixed hyperlipidemia E78.2 and Essential (primary) hypertension I10 [facility] [address] [place] [address] Dec, 17 Essential (primary) hypertension I10 and Gastro-esophageal reflux disease without esophagitis K21.[address] [facility] [address] [address] Mar, 16 Encounter for immunization Z23 [facility] [address] [address] Feb, 16 Encounter for immunization Z23 [facility] [address] [address] Jan, 16 Chronic kidney disease (CKD) stage G3b/A1, moderately decreased glomerular filtration rate (GFR) between 30-44 mL/min/1.73 square meter and albuminuria creatinine ratio less than 30 mg/g N18.3 [facility] [address] [address] Dec, 16 Essential (primary) hypertension I10 and Mixed hyperlipidemia E78.2 [facility] [address] [address] Dec, 16 Essential (primary) hypertension I10 ; Gastro-esophageal reflux disease without esophagitis K21.9 and Gastroparesis K31.84 [facility] [address] [address] Dec, 16 [facility] [address] [address] 18 Jul, 16 Well woman exam Z01.419 ; Postmenopausal Z78.0 and Encounter for screening mammogram for malignant neoplasm of breast Z12.31 [facility] [address] [address] Jul, 16 Shingles B02.9 [facility] [address] [address] Jun, 16 Shingles B02.9 ; Low back pain M54.5 ; Sciatica, unspecified side M54.30 and Encounter for immunization Z23 [facility] [address] [address] Apr, [address] [address] Mar, 15 Encounter for immunization Z23 [facility] [address] [place] [address] Jan, 15 [facility] [place] [address] [place] [address] Jan, 15 [facility] [place] [address] [place] [address] Nov, 15 Lumbar back pain 724.2 [facility] [address] [place] [address] Nov, 15 [facility] [place] [address] [place] [address] Nov, 15 [facility] [place] [address] [place] [address] Nov, 15 [facility] [place] [address] [place] [address] Nov, 15 [facility] [place] [address] [place] [address] 08 Nov, 15 [facility] [place] [address] [place] [address] Nov, 15 Gastroparesis 536.3 ; Essential hypertension, benign 401.1 ; Other vitamin B12 deficiency anemia 281.1 ; Malaise and fatigue 780.79 and Mixed hyperlipidemia 272.2 [facility] [place] [address] [place] [address] Nov, 15 Gastroparesis 536.3 ; Essential hypertension, benign 401.1 and Esophageal reflux 530.81 [facility] [place] [address] [place] [address] October, 15 Other vitamin B12 deficiency anemia 281.1 and Malaise and fatigue 780.79 [address] [place] [address] Sep, [address] [address] Sep, [facility]LA[facility] [place] [address] [place] [address] Aug, [address] [place] [id number] [place] [address] Aug, [facility] [place] [address] [place] [address] 10 Apr, 14 [facility] [address] [address] 10 Apr, 2013 [facility] [place] [address] [place] [address] 16 Mar, 14 [facility] [address] [address] 16 Mar, 2013 [facility] [place] [address] [place] [address] 22 Feb, 14 [facility] [address] [address] 22 Feb, 2013 [facility] [place] [address] [place] [address] 18 Feb, 14 [facility] [address] [address] 18 Feb, 2013 [facility] [place] [address] [place] [address] 17 Feb, 14 [facility] [place] [address] [place] [address] 17 Feb, 14 [facility] [address] [address] 17 Feb, 2013 [facility] [address] [address] 17 Feb, 2013 [facility] [address] [address] 17 Feb, 2013 [facility] [address] [facility] [place] [address] 17 Feb, 2013 [facility] [place] [address] [place] [address] 17 Feb, 14 [facility] [place] [address] [place] [address] 17 Feb, 14 [facility] [place] [address] [place] [address] 02 Nov, 14 [facility] [address] [id number] [place] [address] Nov, [facility] [place] [address] [place] [address] Sep, 14 [facility] [address] [id number] [place] [address] Sep, [facility] [place] [address] [place] [address] Sep, 14 [facility] [address] [id number] [place] [address] Sep, [facility] [place] [address] [place] [address] Sep, 14 [facility] [address] [id number] [place] [address] Sep, [facility] [place] [address] [place] [address] Aug, 14 [facility] [place] [address] [place] [address] Aug, 14 [facility] [place] [address] [place] [address] Aug, 14 [facility] [place] [address] [place] [address] Aug, 14 [facility] [place] [address] [place] [address] Aug, 14 [facility] [address] [id number] [place] [address] Aug, [facility] [address] [id number] [place] [address] Aug, [facility] [address] [id number] [place] [address] Aug, [facility] [address] [id number] [place] [address] Aug, [facility] [address] [id number] [place] [address] Aug, [facility] [address] [id number] [place] [address] Aug, [facility] [place] [address] [place] [address] Aug, 14 [facility] [address] [id number] [place] [address] Aug, [facility] [address] [id number] [place] [address] Aug, [facility] [address] [id number] [place] [address] Aug, [facility] [place] [address] [place] [address] Aug, 14 [facility] [place] [address] [place] [address] Aug, 14 [facility] [address] [id number] [place] [address] Aug, [facility] [place] [address] [place] [address] Jul, 14 [facility] [place] [address] [id number] [place] [address] Jul, [facility] [place] [address] [place] [address] Jun, 14 [facility] [address] [id number] [place] [address] Jun, [facility] [place] [address] [place] [address] Jun, 14 [facility] [place] [address] [id number] [place] [address] Jun, [facility] [place] [address] [place] [address] Jun, 14 [facility] [address] [id number] [place] [address] Jun, [facility] [place] [address] [place] [address] Jun, 14 [facility] [address] [id number] [place] [address] Jun, [facility] [place] [address] [place] [address] May, 13 [facility] [address] [id number] [place] [address] May, [facility] [place] [address] [place] [address] May, 13 [facility] [address] [id number] [place] [address] May, 2012 [facility] [place] [address] [place] [address] May, 13 [facility] [address] [id number] [place] [address] May, [facility] [place] [address] [place] [address] May, 13 [facility] [address] [id number] [place] [address] May, [facility] [place] [address] [place] [address] May, 13 [facility] [address] [id number] [place] [address] May, [facility] [place] [address] [place] [address] May, 13 [facility] [address] [id number] [place] [address] May, [facility] [place] [address] [place] [address] Apr, 13 [facility] [address] [id number] [place] [address] Apr, [facility] [address] [id number] [place] [address] Apr, [facility] [place] [address] [place] [address] Apr, 13 [facility] [place] [address] [id number] [place] [address] Apr, [facility] [place] [address] [place] [address] Apr, 13 [facility] [id number] [place] [phone] Apr, [facility] [place] [address] Apr, 13 [facility] [address] [address] Apr, [facility] [address] [place] [address] Apr, 13 [facility] [address] [address] Apr, [facility] [place] [address] Mar, 13 [place] [address] [address] Mar, [facility] [address] [place] [address] Mar, 13 [facility] [id number] [place] [id number] Mar, IMMUNIZATIONS No Known Immunizations SOCIAL HISTORY [...]
--- OUTSIDE RECORDS SUMMARY | 2019-09-08 13:52 | XMS REPORT ---
Author Author Ayla Stahl Organization [facility] Address [address] [place] [address] Care Team Providers Care International Trade Analyst Name Role Phone GERSON Stahl Unavailable PROBLEMS Type Condition ICD9-CM Code KBE32-VV Code Onset Dates Condition S tatus SNOMED Code Problem Gastroparesis 536.3 Active 007765 006 Problem Esophageal reflux 530.81 Active 24 7318732 Problem Essential hypertension, benign 401.1 Active 7930896 Problem Need for prophylactic vaccination and inoculation, Influen za V04.81 Active 379180374 Problem Mixed hyperlipidemia E78.2 Active 744267769 Problem Lumbago 724.2 Active 091980616 Problem Gastro-esophageal reflux disease without esophagitis K21.9 Active 898159005 Problem Pain in joint, ankle and foot 719.47 Active 413615699 Problem Allergic rhinitis due to pollen 477.0 Active 99558106 Problem Depressive disorder, not elsewhere classified 311 Active 33031003 Problem Mixed hyperlipidemia 272.2 Active 362394343 Problem Essential (primary) hypertension I10 Active 69813507 ALLERGIES No Information ENCOUNTERS Encounter Location Date Diagnosis [facility] [address] [place] [address] Mar, 17 Encounter for immunization Z23 [facility] [address] [place] [address] Jan, 17 Elevated glucose level R73.09 [facility] [address] [place] [address] Jan, 17 Essential (primary) hypertension I10 [facility] [address] [place] [address] Dec, 17 Mixed hyperlipidemia E78.2 and Essential (primary) hypertension I10 [facility] [address] [place] [address] Dec, 17 Essential (primary) hypertension I10 and Gastro-esophageal reflux disease without esophagitis [facility]9 [facility] [address] [address] Mar, 16 [facility] [address] [address] Feb, 16 [facility] [address] [address] Jan, 16 Chronic kidney disease (CKD) stage G3b/A1, moderately decreased glomerular filtration rate (GFR) between 30-44 mL/min/1.73 square meter and albuminuria creatinine ratio less than 30 mg/g N18.3 [facility] [address] [address] Dec, 16 Essential (primary) hypertension I10 and Mixed hyperlipidemia E78.2 [facility] [address] [address] Dec, 16 Essential (primary) hypertension I10 ; Gastro-esophageal reflux disease without esophagitis K21.9 and Gastroparesis K31.84 [facility] [address] [address] Dec, 16 [facility] [address] [address] 18 Jul, 16 Well woman exam Z01.419 ; Postmenopausal Z78.0 and Encounter for screening mammogram for malignant neoplasm of breast Z12.31 [facility] [address] [address] Jul, 16 Sh[address]les B02.[address] [address] Jun, 16 Shingles B02.9 ; Low back pain M54.5 ; Sciatica, unspecified side M54.30 and [facility] [address] [address] 04 Apr, 15 [facility] [address] [address] Mar, 15 Encounter for immunization Z23 [facility] [address] [place] [address] Jan, 15 [facility] [address] [place] [address] Jan, 15 [facility] [address] [place] [address] Nov, 15 Lumbar back pain 724.2 [facility] [address] [place] [address] Nov, 15 [facility] [address] [place] [address] Nov, 15 [facility] [address] [place] [address] Nov, 15 [facility] [address] [place] [address] Nov, 15 [facility] [address] [place] [address] Nov, 15 [facility] [address] [place] [address] Nov, 15 Gastroparesis 536.3 ; Essential hypertension, benign 401.1 ; Other vitamin B12 deficiency anemia 281.1 ; Malaise and fatigue 780.79 and Mixed hyperlipidemia 272.2 [facility] [address] [place] [address] Nov, 15 Gastroparesis 536.3 ; Essential hypertension, benign 401.1 and Esophageal reflux 530.81 [facility] [address] [place] [address] October, 15 Other vitamin B12 deficiency anemia 281.1 and Malaise and fatigue 780.[address] [id number] [address] [place] [address] Sep, [facility] [id number] [address] [place] [phone] Sep, [facility] [address] [place] [address] Aug, 15 [place] [id number] [address] [place] [phone] Aug, [facility] [address] [place] [address] 10 Apr, 14 [facility] [address] [facility] [id number] [address] [place] [id number] 10 Apr, 2014 [facility] [address] [place] [address] 16 Mar, 14 [facility] [address] [facility] [id number] [address] [place] [phone] 16 Mar, 2014 [facility] [address] [place] [address] 22 Feb, 14 [facility] [address] [facility] [id number] [address] [place] [phone] 22 Feb, 2013 [facility] [address] [place] [address] 18 Feb, 14 [facility] [address] [facility] [id number] [address] [place] [address] 18 Feb, 2013 [facility] [address] [place] [address] 17 Feb, 14 [facility] [address] [place] [address] 17 Feb, 14 [facility] [address] [facility] [id number] [address] [place] [address] 17 Feb, 2013 [facility] [address] [facility] [id number] [address] [place] [address] 17 Feb, 2013 [facility] [address] [facility] [id number] [address] [place] [phone] 17 Feb, 2013 [facility] [address] [facility] [id number] [address] [place] [phone] 17 Feb, 2013 [facility] [address] [place] [address] 17 Feb, 20 14 [facility] [address] [place] [address] 17 Feb, 20 14 [facility] [address] [facility] [place] [address] Nov, 14 [facility] [address] [facility] [id number] [facility] [address] Nov, [facility] [address] [place] [address] Sep, 14 [facility] [address] [facility] [id number] [facility] [address] Sep, [facility] [address] [place] [address] Sep, 14 [facility] [address] [facility] [id number] [address] [place] [phone] Sep, [facility] [address] [place] [address] Sep, 14 [facility] [address] [facility] [id number] [address] [place] [phone] Sep, [facility] [address] [place] [address] Aug, 14 [facility] [address] [place] [address] Aug, 14 [facility] [address] [facility] [place] [address] Aug, 14 [facility] [address] [place] [address] Aug, 14 [facility] [address] [place] [address] Aug, 14 [facility] [address] [facility] [id number] [facility] [id number] Aug, [facility] [address] [facility] [id number] [address] [place] [address], [place] [id number] Aug, [facility] [address] [facility] [id number] [facility] [place] [id number] Aug, [facility] [address] [facility] [id number] [address] [place] [phone] Aug, [facility] [address] [id number] [facility] [id number] Aug, [facility] [address] [facility] [id number] [address] [place] [address], [place] [id number] Aug, [facility] [address] [place] [address] Aug, 14 [facility] [address] [facility] [id number] [facility] [place] [id number] Aug, [facility] [address] [facility] [id number] [address] [place] [address], [place] [id number] Aug, [facility] [address] [facility] [id number] [address] [place] [address], [place] [id number] Aug, [facility] [address] [place] [address] Aug, 14 [facility] [address] [place] [address] Aug, 14 [facility] [address] [facility] [id number] [address] [place] [address], [place] [id number] Aug, [facility] [address] [place] [address] Jul, 14 [facility] [address] [facility] [id number] [address] [place] [address], [place] [id number] Jul, [facility] [address] [place] [address] Jun, 14 [facility] [address] [facility] [id number] [address] [place] [address], [place] [id number] Jun, [facility] [address] [place] [address] Jun, 14 [facility] [address] [facility] [id number] [address] [place] [address], [place] [id number] Jun, [facility] [address] [place] [address] Jun, 14 [facility] [address] [facility] [id number] [address] [place] [id number] Jun, [facility] [address] [place] [address] Jun, 14 [facility] [address] [facility] [id number] [address] [place] [id number] Jun, [facility] [address] [place] [address] May, 13 [facility] [address] [facility] [id number] [address] [place] [id number] May, [facility] [address] [place] [address] May, 13 [facility] [address] [facility] [id number] [address] [place] [phone] May, [facility] [address] [place] [address] May, 13 [facility] [address] [facility] [id number] [address] [place] [id number] May, [facility] [address] [place] [address] May, 13 [facility] [address] [facility] [id number] [address] [place] [phone] May, [facility] [address] [place] [address] May, 13 [facility] [address] [facility] [id number] [address] [place] [phone] May, [facility] [address] [place] [address] May, 13 [facility] [address] [facility] [id number] [address] [place] [phone] May, [facility] [address] [place] [address] Apr, 13 [facility] [address] [facility] [id number] [address] [place] [id number] Apr, [facility] [address] [facility] [id number] [address] [place] [id number] Apr, [facility] [address] [place] [address] Apr, 13 [facility] [address] [place] [id number] [address] [place] [phone] Apr, [facility] [address] [place] [address] Apr, 13 [facility] [address] [place] [id number] [address] [place] [id number] Apr, [facility] [address] [place] [address] Apr, 13 [facility] [address] [place] [id number] [address] [place] [id number] Apr, [facility] [address] [place] [address] Apr, 13 [facility] [id number] [place] [id number] Apr, [facility] [address] [place] [address] Mar, 13 [facility] [address] [place] [id number] [address] [place] [id number] Mar, [facility] [address] [place] [address] Mar, 13 [facility] [address] [place] [id number] [address] [place] [id number] Mar, IMMUNIZATIONS No Known Immunizations SOCIAL HISTORY [...]
--- OUTSIDE RECORDS SUMMARY | 2019-09-08 13:53 | XMS REPORT ---
Author Author Ayla HERNANDEZ [facility] [address] Address [address] [place] [address] Care Team Providers Care Tanning Consultant Name Role Phone BRIEN HERNANDEZ Unavailable PROBLEMS Type Condition ICD9-CM Code QAC65-CM Code Onset Dates Condition S tatus SNOMED Code Problem Gastroparesis 536.3 Active 343452 006 Problem Esophageal reflux 530.81 Active 24 7852585 Problem Essential hypertension, benign 401.1 Active 4620421 Problem Need for prophylactic vaccination and inoculation, Influen za V04.81 Active 703164311 Problem Mixed hyperlipidemia E78.2 Active 874632701 Problem Lumbago 724.2 Active 608311129 Problem Gastro-esophageal reflux disease without esophagitis K21.9 Active 444732710 Problem Pain in joint, ankle and foot 719.47 Active 834021747 Problem Allergic rhinitis due to pollen 477.0 Active 70722302 Problem Depressive disorder, not elsewhere classified 311 Active 77940950 Problem Mixed hyperlipidemia 272.2 Active 271112078 Problem Essential (primary) hypertension I10 Active 73170222 ALLERGIES No Information ENCOUNTERS Encounter Location Date Diagnosis [facility] [address] [place] [address] Mar, 17 Encounter for immunization Z23 [facility] [address] [place] [address] Jan, 17 Elevated glucose level R73.09 [facility] [address] [place] [address] Jan, 17 Essential (primary) hypertension I10 [facility] [address] [place] [address] Dec, 17 Mixed hyperlipidemia E78.2 and Essential (primary) hypertension I10 [facility] [address] [place] [address] Dec, 17 Essential (primary) hypertension I10 and Gastro-esophageal reflux disease without esophagitis K21.[address] [facility] [address] [address] Mar, 16 Encounter for immunization Z23 [facility] [address] [address] Feb, 16 [facility] for [facility] [address] [address] Jan, 16 Chronic kidney disease (CKD) stage G3b/A1, moderately decreased glomerular filtration rate (GFR) between 30-44 mL/min/1.73 square meter and albuminuria creatinine ratio less than 30 mg/g N18.3 [facility] [address] [address] Dec, 16 Essential (primary) hypertension I10 and [facility].2 [facility] [address] [address] Dec, 16 Essential (primary) hypertension I10 ; Gastro-esophageal reflux disease without esophagitis K21.9 and Gastroparesis K31.84 [facility] [address] [address] Dec, 16 [facility] [address] [address] 18 Jul, 16 Well woman exam Z01.419 ; Postmenopausal Z78.0 and Encounter for screening mammogram for malignant neoplasm of breast Z12.31 [facility] [address] [address] Jul, 16 [facility]ingles B02.9 [facility] [address] [address] Jun, 16 Shingles B02.9 ; Low back pain M54.5 ; Sciatica, unspecified side M54.30 and Encounter for immunization Z23 [facility] [address] [address] Apr, [address] [facility] [address] [address] Mar, 15 Encounter for immunization Z23 [facility] [address] [place] [address] Jan, 15 [facility] [place] [address] [place] [address] Jan, 15 [facility] [place] [address] [place] [address] Nov, 15 Lumbar back pain 724.2 [facility] [address] [place] [address] Nov, 15 [facility] [place] [address] [place] [address] Nov, 15 [facility] [place] [address] [place] [address] 08 Nov, 15 [facility] [place] [address] [place] [address] 08 Nov, 15 [facility] [place] [address] [place] [address] 08 Nov, 15 [facility] [place] [address] [place] [address] Nov, 15 Gastroparesis 536.3 ; Essential hypertension, benign 401.1 ; Other vitamin B12 deficiency anemia 281.1 ; Malaise and fatigue 780.79 and Mixed hyperlipidemia 272.2 [facility] [address] [place] [address] Nov, 15 Gastroparesis 536.3 ; Essential hypertension, benign 401.1 and Esophageal reflux 530.81 [facility] [place] [address] [place] [address] October, 15 Other vitamin B12 deficiency anemia 281.1 and Malaise and fatigue 780.[address] [id number] [address] [place] [address] Sep, [place] [id number] [address] [place] [address] Sep, [facility] [place] [address] [place] [address] Aug, 15 [place] [id number] [address] [place] [address] Aug, [facility] [place] [address] [place] [address] 10 Apr, 14 [facility] [address] [facility] [id number] [address] [place] [address] 10 Apr, 2014 [facility] [place] [address] [place] [address] 16 Mar, 14 [facility] [address] [facility] [id number] [address] [place] [address] 16 Mar, 2013 [facility] [place] [address] [place] [address] 22 Feb, 20 14 [facility] [address] [facility] [id number] [address] [place] [address] 22 Feb, 2013 [facility] [place] [address] [place] [address] 18 Feb, 20 14 [facility] [address] [facility] [id number] [address] [place] [address] 18 Feb, 2013 [facility] [place] [address] [place] [address] 17 Feb, 20 14 [facility] [place] [address] [place] [address] 17 Feb, 14 [facility] [address] [facility] [id number] [address] [place] [address] 17 Feb, 2013 [facility] [address] [facility] [id number] [address] [place] [address] 17 Feb, 2013 [facility] [address] [facility] [id number] [address] [place] [address] 17 Feb, 2013 [facility] [address] [facility] [id number] [address] [place] [address] 17 Feb, 2013 [facility] [place] [address] [place] [address] 17 Feb, 20 14 [facility] [place] [address] [place] [address] 17 Feb, 20 14 [facility] [place] [address] [place] [address] Nov, 14 [facility] [address] [facility] [id number] [facility] [place] [address] Nov, [facility] [place] [address] [facility] [place] [address] Sep, 14 [facility] [place] [address] [facility] [id number] [facility] [place] [address] Sep, [facility] [place] [address] [place] [address] Sep, 14 [facility] [address] [facility] [id number] [address] [place] [address] Sep, [facility] [place] [address] [place] [address] Sep, 14 [facility] [address] [facility] [id number] [address] [place] [address] Sep, [facility] [place] [address] [place] [address] Aug, 14 [facility] [place] [address] [place] [address] Aug, 14 [facility] [place] [address] [place] [address] Aug, 14 [facility] [place] [address] [place] [address] Aug, 14 [facility] [place] [address] [place] [address] Aug, 14 [facility] [address] [facility] [id number] [facility] [place] [address] Aug, [facility] [address] [facility] [id number] [address] [place] [address], [place] [address] Aug, [facility] [address] [facility] [id number] [facility] [place] [address] Aug, [facility] [address] [facility] [id number] [facility] [place] [address] Aug, [facility] [address] [facility] [id number] [address] [address] Aug, [facility] [address] [facility] [id number] [address] [place] [address] Aug, [facility] [place] [address] [place] [address] Aug, 14 [facility] [address] [facility] [id number] [address] [place] [address] Aug, [facility] [address] [facility] [id number] [address] [place] [address] Aug, [facility] [address] [facility] [id number] [address] [place] [address] Aug, [facility] [place] [address] [place] [address] Aug, 14 [facility] [place] [address] [place] [address] Aug, 14 [facility] [address] [facility] [id number] [address] [place] [address] Aug, [facility] [place] [address] [place] [address] Jul, 14 [facility] [address] [place] [id number] [address] [place] [address] Jul, [facility] [place] [address] [place] [address] Jun, 14 [facility] [address] [facility] [id number] [address] [place] [address] Jun, [facility] [place] [address] [place] [address] Jun, 14 [facility] [address] [facility] [id number] [address] [place] [address] Jun, [facility] [place] [address] [place] [address] Jun, 14 [facility] [address] [facility] [id number] [address] [place] [address] Jun, [facility] [place] [address] [facility] [place] [address] Jun, 14 [facility] [address] [facility] [id number] [address] [place] [address] Jun, [facility] [place] [address] [facility] [place] [address] May, 13 [facility] [address] [facility] [id number] [address] [place] [address] May, [facility] [place] [address] [place] [address] May, 13 [facility] [address] [facility] [id number] [address] [place] [address] May, [facility] [place] [address] [place] [address] May, 13 [facility] [address] [facility] [id number] [address] [place] [address] May, [facility] [place] [address] [place] [address] May, 13 [facility] [address] [facility] [id number] [address] [place] [address] May, [facility] [place] [address] [place] [address] May, 13 [facility] [address] [facility] [id number] [address] [place] [address] May, [facility] [place] [address] [place] [address] May, 13 [facility] [address] [facility] [id number] [address] [place] [address] May, [facility] [place] [address] [place] [address] Apr, 13 [facility] [address] [facility] [id number] [address] [place] [address] Apr, [facility] [address] [place] [address] Apr, [facility] [place] [address] [place] [address] Apr, 13 [facility] [address] [place] [id number] [address] [place] [address] Apr, [facility] [place] [address] [place] [address] Apr, 13 [facility] [address] [place] [id number] [address] [place] [address] Apr, [facility] [place] [address] [place] [address] Apr, 13 [facility] [address] [place] [id number] [address] [place] [address] Apr, [facility] [place] [address] [place] [address] Apr, 13 [facility] [address] [place] [id number] [address] [place] [address] Apr, [facility] [place] [address] [place] [address] Mar, 13 [facility] [address] [place] [id number] [address] [place] [address] Mar, [facility] [place] [address] [place] [address] Mar, 13 [place] [address] [place] [address] Mar, IMMUNIZATIONS No Known Immunizations SOCIAL HISTORY [...] W RADIAL HEAD '98; RT KNEE REPLACEMENT '10 Surgical History cataract-lens implants - BILAT Surgical History ANTERIOR REPAIR VAGINAL VAULT PROLAPSE 0 02/2012 Surgical History ESOPHAGUS PUNCTURES AND LUNG COLLAPSE Surgical History RECTAL REPAIR 09/2012 Hospitalization History Surgery(s) only
--- OUTSIDE RECORDS SUMMARY | 2019-09-08 13:53 | XMS REPORT ---
Author Author Ayla HERNANDEZ Organization [facility] [address] Address [address] [place] [address] Care Team Providers Care Corporate Intern Name Role Phone BRIEN HERNANDEZ Unavailable PROBLEMS Type Condition ICD9-CM Code HGE21-QE Code Onset Dates Condition S tatus SNOMED Code Problem Gastroparesis 536.3 Active 361523 006 Problem Esophageal reflux 530.81 Active 24 5518549 Problem Essential hypertension, benign 401.1 Active 7764354 Problem Need for prophylactic vaccination and inoculation, Influen za V04.81 Active 961631252 Problem Mixed hyperlipidemia E78.2 Active 905328995 Problem Lumbago 724.2 Active 916965209 Problem Gastro-esophageal reflux disease without esophagitis K21.9 Active 213262439 Problem Pain in joint, ankle and foot 719.47 Active 426380258 Problem Allergic rhinitis due to pollen 477.0 Active 62724714 Problem Depressive disorder, not elsewhere classified 311 Active 50692178 Problem Mixed hyperlipidemia 272.2 Active 743884549 Problem Essential (primary) hypertension I10 Active 72280631 ALLERGIES No Information ENCOUNTERS Encounter Location Date Diagnosis [facility] [address] [place] [address] Mar, 17 Encounter for immunization Z23 [facility] [address] [place] [address] Jan, 17 Elevated glucose level R73.09 [facility] [address] [place] [address] Jan, 17 Essential (primary) hypertension I10 [facility] [address] [place] [address] Dec, 17 Mixed hyperlipidemia E78.2 and Essential (primary) hypertension I10 [facility] [address] [place] [address] Dec, 17 Essential (primary) hypertension I10 and Gastro-esophageal reflux disease without esophagitis K21.[address] [facility] [address] [address] Mar, 16 Encounter for immunization Z23 [facility] [address] [address] Feb, 16 [facility] for immunization [facility]23 [facility] [address] [address] Jan, 16 Chronic kidney disease (CKD) stage G3b/A1, moderately decreased glomerular filtration rate (GFR) between 30-44 mL/min/1.73 square meter and albuminuria creatinine ratio less than 30 mg/g N18.3 [facility] [address] [address] Dec, 16 Essential (primary) hypertension I10 and Mixed [facility]78.2 [facility] [address] [address] Dec, 16 Essential (primary) hypertension I10 ; Gastro-esophageal reflux disease without esophagitis K21.9 and [facility]astroparesis K31.84 [facility] [address] [address] Dec, 16 [facility] [address] [address] 18 Jul, 16 Well woman exam Z01.419 ; Postmenopausal Z78.0 and Encounter for screening mammogram for malignant neoplasm of breast Z12.31 [facility] [address] [address] Jul, 16 Shingles B02.9 [facility] [address] [address] Jun, 16 Shingles B02.9 ; Low back pain M54.5 ; Sciatica, unspecified side M54.30 and Encounter for immunization Z23 [facility] [address] [address] Apr, [address] [address] [address] Mar, 15 Encounter for immunization Z23 [facility] [address] [place] [address] Jan, 15 [facility] [address] [place] [address] Jan, 15 [facility] [address] [place] [address] Nov, 15 Lumbar back pain 724.2 [facility] [address] [place] [address] Nov, 15 [facility] [address] [place] [address] Nov, 15 [facility] [address] [place] [address] 08 Nov, 15 [facility] [address] [place] [address] 08 Nov, 15 [facility] [address] [place] [address] 08 Nov, 15 [facility] [address] [place] [address] Nov, 15 Gastroparesis 536.3 ; Essential hypertension, benign 401.1 ; Other vitamin B12 deficiency anemia 281.1 ; Malaise and fatigue 780.79 and Mixed hyperlipidemia 272.2 [facility] [address] [place] [address] Nov, 15 Gastroparesis 536.3 ; Essential hypertension, benign 401.1 and Esophageal reflux 530.81 [facility] [place] [address] [place] [address] October, 15 Other vitamin B12 deficiency anemia 281.1 and Malaise and fatigue 780.[address] [id number] [address] [place] [address] Sep, [place] [id number] [address] [place] [address] Sep, [facility] [place] [address] [place] [address] Aug, 15 [place] [id number] [address] [place] [address] Aug, [facility] [place] [address] [place] [address] 10 Apr, 14 [facility] [address] [facility] [id number] [address] [place] [address] 10 Apr, 2014 [facility] [place] [address] [place] [address] 16 Mar, 14 [facility] [address] [facility] [id number] [address] [place] [address] 16 Mar, 2013 [facility] [place] [address] [place] [address] 22 Feb, 20 14 [facility] [address] [facility] [id number] [address] [place] [address] 22 Feb, 2013 [facility] [place] [address] [place] [address] 18 Feb, [address] [facility] [address] [facility] [id number] [address] [place] [address] 18 Feb, 2013 [facility] [address] [place] [address] 17 Feb, 20 14 [facility] [address] [place] [address] 17 Feb, 14 [facility] [address] [facility] [id number] [address] [place] [address] [address], [address] [facility] [address] [facility] [id number] [address] [place] [address] 17 Feb, 2013 [facility] [address] [facility] [id number] [address] [place] [address] 17 Feb, 2013 [facility] [address] [facility] [id number] [address] [place] [address] 17 Feb, 2013 [facility] [address] [place] [address] 17 Feb, 20 14 [facility] [address] [place] [address] 17 Feb, 20 14 [facility] [address] [place] [address] Nov, 14 [facility] [address] [facility] [id number] [facility] [place] [address] Nov, [facility] [place] [address] [place] [address] Sep, 14 [facility] [address] [facility] [id number] [facility] [place] [address] Sep, [facility] [address] [place] [address] Sep, 14 [facility] [address] [facility] [id number] [address] [place] [address] Sep, [facility] [address] [place] [address] Sep, 14 [facility] [address] [facility] [id number] [address] [place] [address] Sep, [facility] [address] [place] [address] Aug, 14 [facility] [address] [place] [address] Aug, 14 [facility] [address] [place] [address] Aug, 14 [facility] [address] [place] [address] Aug, 14 [facility] [address] [place] [address] Aug, 14 [facility] [address] [facility] [id number] [facility] [place] [address] Aug, [facility] [address] [facility] [id number] [address] [place] [address], [place] [address] Aug, [facility] [address] [facility] [id number] [facility] [place] [address] Aug, [facility] [address] [facility] [id number] [facility] [place] [address] Aug, [facility] [address] [facility] [id number] [address] [address] Aug, [facility] [address] [facility] [id number] [address] [place] [address] Aug, [facility] [address] [place] [address] Aug, 14 [facility] [address] [facility] [id number] [address] [place] [address] Aug, [facility] [address] [facility] [id number] [address] [place] [address] Aug, [facility] [address] [facility] [id number] [address] [place] [address] Aug, [facility] [address] [place] [address] Aug, 14 [facility] [place] [address] [place] [address] Aug, 14 [facility] [address] [facility] [id number] [address] [place] [address] Aug, [facility] [address] [place] [address] Jul, 14 [facility] [address] [place] [id number] [address] [place] [address] Jul, [facility] [address] [place] [address] Jun, 14 [facility] [address] [facility] [id number] [address] [place] [address] Jun, [facility] [address] [place] [address] Jun, 14 [facility] [address] [facility] [id number] [address] [place] [address] Jun, [facility] [address] [place] [address] Jun, 14 [facility] [address] [facility] [id number] [address] [place] [address] Jun, [facility] [address] [place] [address] Jun, 14 [facility] [address] [facility] [id number] [address] [place] [address] Jun, [facility] [address] [place] [address] May, 13 [facility] [address] [facility] [id number] [address] [place] [address] May, [facility] [address] [place] [address] May, 13 [facility] [address] [facility] [id number] [address] [place] [address] May, [facility] [address] [place] [address] May, 13 [facility] [address] [facility] [id number] [address] [place] [address] May, [facility] [address] [place] [address] May, 13 [facility] [address] [facility] [id number] [address] [place] [address] May, [facility] [address] [place] [address] May, 13 [facility] [address] [facility] [id number] [address] [place] [phone] May, [facility] [address] [place] [address] May, 13 [facility] [address] [facility] [id number] [address] [place] [address] May, [facility] [address] [place] [address] Apr, 13 [facility] [address] [facility] [id number] [address] [place] [address] Apr, [facility] [id number] [place] [address] Apr, [facility] [address] [place] [address] Apr, 13 [facility] [address] [place] [id number] [address] [place] [address] Apr, [facility] [address] [place] [address] Apr, 13 [facility] [address] [place] [id number] [address] [place] [address] Apr, [facility] [place] [address] [place] [address] Apr, 13 [facility] [address] [place] [id number] [address] [place] [address] Apr, [facility] [address] [place] [address] Apr, 13 [facility] [address] [place] [id number] [address] [place] [address] Apr, [facility] [address] [place] [address] Mar, 13 [facility] [address] [place] [id number] [address] [place] [id number] Mar, [facility] [address] [place] [address] Mar, 13 [place] [id number] [place] [address] Mar, IMMUNIZATIONS No Known Immunizations SOCIAL HISTORY [...]
--- OUTSIDE RECORDS SUMMARY | 2019-09-08 13:53 | XMS REPORT ---
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 Name Role Phone BRIEN HERNANDEZ Unavailable PROBLEMS Type Condition ICD9-CM Code NNN99-ZK Code Onset Dates Condition S tatus SNOMED Code Problem Gastroparesis 536.3 Active 134860 006 Problem Esophageal reflux 530.81 Active 24 7718919 Problem Essential hypertension, benign 401.1 Active 8447084 Problem Need for prophylactic vaccination and inoculation, Influen za V04.81 Active 674979594 Problem Mixed hyperlipidemia E78.2 Active 027304776 Problem Lumbago 724.2 Active 654306231 Problem Gastro-esophageal reflux disease without esophagitis K21.9 Active 735773699 Problem Pain in joint, ankle and foot 719.47 Active 970547204 Problem Allergic rhinitis due to pollen 477.0 Active 32550114 Problem Depressive disorder, not elsewhere classified 311 Active 45304737 Problem Mixed hyperlipidemia 272.2 Active 314669198 Problem Essential (primary) hypertension I10 Active 03346110 ALLERGIES No Information ENCOUNTERS Encounter Location Date Diagnosis [facility] [address] [place] [address] Mar, 17 Encounter for immunization Z23 [facility] [address] [place] [address] Jan, 17 Elevated glucose level R73.09 [facility] [address] [place] [address] Jan, 17 Essential (primary) hypertension I10 [facility] [address] [place] [address] Dec, 17 Mixed hyperlipidemia E78.2 and Essential (primary) hypertension I10 [facility] [address] [place] [address] Dec, 17 Essential (primary) hypertension I10 and Gastro-esophageal reflux disease without esophagitis K21.[address] [facility] [address] [address] Mar, 16 Encounter for immunization Z23 [facility] [address] [address] Feb, 16 [facility] [address] [address] Jan, 16 Chronic kidney disease (CKD) stage G3b/A1, moderately decreased glomerular filtration rate (GFR) between 30-44 mL/min/1.73 square meter and albuminuria creatinine ratio less than 30 mg/g N18.3 [facility] [address] [address] Dec, 16 Essential (primary) hypertension I10 and Mixed hyperlipidemia E78.2 [facility] [address] [address] Dec, 16 Essential (primary) hypertension I10 ; Gastro-esophageal reflux disease without esophagitis K21.9 and Gastroparesis K31.84 [facility] [address] [address] Dec, 16 [facility] [address] [address] 18 Jul, 16 Well woman exam Z01.419 ; Postmenopausal Z78.0 and Encounter for screening mammogram for malignant neoplasm of breast Z12.31 [facility] [address] [address] Jul, 16 Shingles B02.9 [facility] [address] [address] Jun, 16 Shingles B02.9 ; Low back pain M54.5 ; Sciatica, unspecified side M54.30 and Encounter for immunization Z23 [facility] [address] [address] Apr, [address] [facility] [address] [address] Mar, 15 Encounter for immunization [facility]23 [facility] [address] [place] [address] Jan, 15 [facility] [address] [place] [address] Jan, 15 [facility] [address] [place] [address] Nov, 15 Lumbar back pain 724.2 [facility] [address] [place] [address] Nov, 15 [facility] [address] [place] [address] Nov, 15 [facility] [address] [place] [address] 08 Nov, 15 [facility] [address] [place] [address] 08 Nov, 15 [facility] [address] [place] [address] 08 Nov, 15 [facility] [address] [place] [address] Nov, 15 Gastroparesis 536.3 ; Essential hypertension, benign 401.1 ; Other vitamin B12 deficiency anemia 281.1 ; Malaise and fatigue 780.79 and Mixed hyperlipidemia 272.2 [facility] [address] [place] [address] Nov, 15 Gastroparesis 536.3 ; Essential hypertension, benign 401.1 and Esophageal reflux 530.81 [facility] [place] [address] [place] [address] October, 15 Other vitamin B12 deficiency anemia 281.1 and Malaise and fatigue 780.[address] [id number] [address] [place] [address] Sep, [place] [id number] [address] [place] [address] Sep, [facility] [place] [address] [place] [address] Aug, 15 [place] [id number] [address] [place] [address] Aug, [facility] [address] [place] [address] 10 Apr, 14 [facility] [address] [facility] [id number] [address] [place] [address] 10 Apr, 2014 [facility] [place] [address] [place] [address] 16 Mar, 14 [facility] [address] [facility] [id number] [address] [place] [address] 16 Mar, 2013 [facility] [address] [place] [address] 22 Feb, 20 14 [facility] [address] [facility] [id number] [address] [place] [phone] 22 Feb, 2013 [facility] [address] [place] [address] 18 Feb, 20 14 [facility] [address] [facility] [id number] [address] [place] [phone] 18 Feb, 2013 [facility] [address] [place] [address] 17 Feb, 20 14 [facility] [address] [place] [address] 17 Feb, 14 [facility] [address] [facility] [id number] [address] [place] [address] 17 Feb, 2013 [facility] [address] [facility] [id number] [address] [place] [address] 17 Feb, 2013 [facility] [address] [facility] [id number] [address] [place] [address] 17 Feb, 2013 [facility] [address] [facility] [id number] [address] [place] [address] 17 Feb, 2013 [facility] [address] [place] [address] 17 Feb, 20 14 [facility] [address] [place] [address] 17 Feb, 20 14 [facility] [address] [place] [address] Nov, 14 [facility] [address] [facility] [id number] [facility] [place] [address] Nov, [facility] [address] [place] [facility] [place] [address] Sep, 14 [facility] [address] [facility] [id number] [facility] [place] [address] Sep, [facility] [address] [place] [address] Sep, 14 [facility] [address] [facility] [id number] [address] [place] [address] Sep, [facility] [address] [place] [address] Sep, 14 [facility] [address] [facility] [id number] [address] [place] [address] Sep, [facility] [address] [place] [address] Aug, 14 [facility] [address] [place] [address] Aug, 14 [facility] [address] [place] [address] Aug, 14 [facility] [address] [place] [address] Aug, 14 [facility] [address] [place] [address] Aug, 14 [facility] [address] [facility] [id number] [facility] [place] [address] Aug, [facility] [address] [facility] [id number] [address] [place] [address], [place] [address] Aug, [facility] [address] [facility] [id number] [facility] [place] [address] Aug, [facility] [address] [facility] [id number] [facility] [place] [address] Aug, [facility] [address] [facility] [id number] [address] [address] Aug, [facility] [address] [facility] [id number] [address] [place] [address] Aug, [facility] [address] [place] [address] Aug, 14 [facility] [address] [facility] [id number] [address] [place] [phone] Aug, [facility] [address] [facility] [id number] [address] [place] [address] Aug, [facility] [address] [facility] [id number] [address] [place] [address] Aug, [facility] [address] [place] [address] Aug, 14 [facility] [address] [place] [address] Aug, 14 [facility] [address] [facility] [id number] [address] [place] [address] Aug, [facility] [address] [place] [address] Jul, 14 [facility] [address] [place] [id number] [address] [place] [address] Jul, [facility] [address] [place] [address] Jun, 14 [facility] [address] [facility] [id number] [address] [place] [address] Jun, [facility] [address] [place] [address] Jun, 14 [facility] [address] [facility] [id number] [address] [place] [phone] Jun, [facility] [address] [place] [address] Jun, 14 [facility] [address] [facility] [id number] [address] [place] [phone] Jun, [facility] [address] [place] [address] Jun, 14 [facility] [address] [facility] [id number] [address] [place] [phone] Jun, [facility] [address] [place] [address] May, 13 [facility] [address] [facility] [id number] [address] [place] [address] May, [facility] [address] [place] [address] May, 13 [facility] [address] [facility] [id number] [address] [place] [phone] May, [facility] [address] [place] [address] May, 13 [facility] [address] [facility] [id number] [address] [place] [address] May, [facility] [address] [place] [address] May, 13 [facility] [address] [facility] [id number] [address] [place] [address] May, [facility] [address] [place] [address] May, 13 [facility] [address] [facility] [id number] [address] [place] [address] May, [facility] [address] [place] [address] May, 13 [facility] [address] [facility] [id number] [address] [place] [address] May, [facility] [address] [place] [address] Apr, 13 [facility] [address] [facility] [id number] [address] [place] [address] Apr, [facility] [id number] [place] [address] Apr, [facility] [address] [place] [address] Apr, 13 [facility] [address] [place] [id number] [address] [place] [address] Apr, [facility] [address] [place] [address] Apr, 13 [facility] [address] [place] [id number] [address] [place] [address] Apr, [facility] [address] [place] [address] Apr, 13 [facility] [address] [place] [id number] [address] [place] [address] Apr, [facility] [address] [place] [address] Apr, 13 [facility] [address] [place] [id number] [address] [place] [address] Apr, [facility] [address] [place] [address] Mar, 13 [facility] [address] [place] [id number] [address] [place] [phone] Mar, [facility] [address] [place] [address] Mar, 13 [place] [id number] [place] [address] Mar, IMMUNIZATIONS No Known Immunizations SOCIAL HISTORY [...]
--- OUTSIDE RECORDS SUMMARY | 2019-09-08 13:53 | XMS REPORT ---
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 Name Role Phone BRIEN HERNANDEZ Unavailable PROBLEMS Type Condition ICD9-CM Code YDL00-AN Code Onset Dates Condition S tatus SNOMED Code Problem Gastroparesis 536.3 Active 452411 006 Problem Esophageal reflux 530.81 Active 24 0144266 Problem Essential hypertension, benign 401.1 Active 0551796 Problem Need for prophylactic vaccination and inoculation, Influen za V04.81 Active 864443697 Problem Mixed hyperlipidemia E78.2 Active 963727724 Problem Lumbago 724.2 Active 652631191 Problem Gastro-esophageal reflux disease without esophagitis K21.9 Active 717933242 Problem Pain in joint, ankle and foot 719.47 Active 359543550 Problem Allergic rhinitis due to pollen 477.0 Active 81062480 Problem Depressive disorder, not elsewhere classified 311 Active 08091468 Problem Mixed hyperlipidemia 272.2 Active 365229142 Problem Essential (primary) hypertension I10 Active 30249053 ALLERGIES No Information ENCOUNTERS Encounter Location Date Diagnosis [facility] [address] [place] [address] Mar, 17 Encounter for immunization Z23 [facility] [address] [place] [address] Jan, 17 Elevated glucose level R73.09 [facility] [address] [place] [address] Jan, 17 Essential (primary) hypertension I10 [facility] [address] [place] [address] Dec, 17 Mixed hyperlipidemia E78.2 and Essential (primary) hypertension I10 [facility] [address] [place] [address] Dec, 17 Essential (primary) hypertension I10 and Gastro-esophageal reflux disease without esophagitis K21.[address] [facility] [address] [address] Mar, 16 Encounter for immunization Z23 [facility] [address] [address] Feb, 16 [facility] [address] [address] Jan, 16 Chronic kidney disease (CKD) stage G3b/A1, moderately decreased glomerular filtration rate (GFR) between 30-44 mL/min/1.73 square meter and albuminuria creatinine ratio less than 30 mg/g N18.3 [facility] [address] [address] Dec, 16 Essential (primary) hypertension I10 and Mixed [facility]lipidemia E78.2 [facility] [address] [address] Dec, 16 Essential (primary) hypertension I10 ; Gastro-esophageal reflux disease without esophagitis K21.9 and Gastroparesis K31.84 [facility] [address] [address] Dec, 16 [facility] [address] [address] 18 Jul, 16 Well woman exam Z01.419 ; Postmenopausal Z78.0 and Encounter for screening mammogram for malignant neoplasm of breast Z12.31 [facility] [address] [address] Jul, 16 Shingles B02.9 [facility] [address] [address] Jun, 16 Shingles B02.9 ; Low back pain M54.5 ; Sciatica, unspecified side M54.30 and Encounter for immunization Z23 [facility] [address] [address] Apr, [address] [address] [address] Mar, 15 Encounter for immunization Z23 [facility] [address] [place] [address] Jan, 15 [facility] [address] [place] [address] Jan, 15 [facility] [address] [place] [address] Nov, 15 Lumbar back pain 724.2 [facility] [address] [place] [address] Nov, 15 [facility] [address] [place] [address] Nov, 15 [facility] [address] [place] [address] 08 Nov, 15 [facility] [address] [place] [address] 08 Nov, 15 [facility] [address] [place] [address] 08 Nov, 15 [facility] [address] [place] [address] Nov, 15 Gastroparesis 536.3 ; Essential hypertension, benign 401.1 ; Other vitamin B12 deficiency anemia 281.1 ; Malaise and fatigue 780.79 and Mixed hyperlipidemia 272.2 [facility] [address] [place] [address] Nov, 15 Gastroparesis 536.3 ; Essential hypertension, benign 401.1 and Esophageal reflux 530.81 [facility] [place] [address] [place] [address] October, 15 Other vitamin B12 deficiency anemia 281.1 and Malaise and fatigue 780.[address] [id number] [address] [place] [address] Sep, [place] [id number] [address] [place] [address] Sep, [facility] [address] [address] [place] [address] Aug, 15 [place] [id number] [address] [place] [address] Aug, [facility] [address] [place] [address] 10 Apr, 14 [facility] [address] [facility] [id number] [address] [place] [address] 10 Apr, 2014 [facility] [address] [place] [address] 16 Mar, 14 [facility] [address] [facility] [id number] [address] [place] [address] 16 Mar, 2013 [facility] [address] [place] [address] 22 Feb, 20 14 [facility] [address] [facility] [id number] [address] [place] [address] 22 Feb, 2013 [facility] [address] [place] [address] 18 Feb, 20 14 [facility] [address] [facility] [id number] [address] [place] [phone] 18 Feb, 2013 [facility] [address] [place] [address] 17 Feb, 20 14 [facility] [address] [place] [address] 17 Feb, 14 [facility] [address] [facility] [id number] [address] [place] [address] 17 Feb, 2013 [facility] [address] [facility] [id number] [address] [place] [address] 17 Feb, 2013 [facility] [address] [facility] [id number] [address] [place] [address] 17 Feb, 2013 [facility] [address] [facility] [id number] [address] [place] [phone] 17 Feb, 2013 [facility] [address] [place] [address] 17 Feb, 20 14 [facility] [address] [place] [address] 17 Feb, 20 14 [facility] [address] [place] [address] Nov, 14 [facility] [address] [facility] [id number] [address] [place] [address] Nov, [facility] [address] [facility] [place] [address] Sep, 14 [facility] [address] [facility] [id number] [address] [place] [address] Sep, [facility] [address] [place] [address] Sep, 14 [facility] [address] [facility] [id number] [address] [place] [address] Sep, [facility] [address] [place] [address] Sep, 14 [facility] [address] [facility] [id number] [address] [place] [address] Sep, [facility] [address] [place] [address] Aug, 14 [facility] [address] [place] [address] Aug, 14 [facility] [address] [place] [address] Aug, 14 [facility] [address] [place] [address] Aug, 14 [facility] [address] [place] [address] Aug, 14 [facility] [address] [facility] [id number] [address] [place] [address] Aug, [facility] [address] [facility] [id number] [address] [place] [address], [place] [address] Aug, [facility] [address] [facility] [id number] [address] [place] [address] Aug, [facility] [address] [facility] [id number] [address] [place] [address] Aug, [facility] [address] [facility] [id number] [address] [address] Aug, [facility] [address] [facility] [id number] [address] [place] [address] Aug, [facility] [address] [place] [address] Aug, 14 [facility] [address] [facility] [id number] [address] [place] [phone] Aug, [facility] [address] [facility] [id number] [address] [place] [address] Aug, [facility] [place] [address] [facility] [id number] [address] [place] [address] Aug, [facility] [address] [place] [address] Aug, 14 [facility] [address] [place] [address] Aug, 14 [facility] [address] [facility] [id number] [address] [place] [address] Aug, [facility] [address] [place] [address] Jul, 14 [facility] [address] [place] [id number] [address] [place] [address] Jul, [facility] [address] [place] [address] Jun, 14 [facility] [address] [facility] [id number] [address] [place] [address] Jun, [facility] [address] [place] [address] Jun, 14 [facility] [address] [facility] [id number] [address] [place] [address] Jun, [facility] [address] [place] [address] Jun, 14 [facility] [address] [facility] [id number] [address] [place] [address] Jun, [facility] [address] [facility] [place] [address] Jun, 14 [facility] [address] [facility] [id number] [address] [place] [address] Jun, [facility] [address] [facility] [place] [address] May, 13 [facility] [address] [facility] [id number] [address] [place] [address] May, [facility] [address] [place] [address] May, 13 [facility] [address] [facility] [id number] [address] [place] [address] May, [facility] [address] [place] [address] May, 13 [facility] [address] [facility] [id number] [address] [place] [phone] May, [facility] [address] [place] [address] May, 13 [facility] [address] [facility] [id number] [address] [place] [phone] May, [facility] [address] [place] [address] May, 13 [facility] [address] [facility] [id number] [address] [place] [address] May, [facility] [address] [place] [address] May, 13 [facility] [address] [facility] [id number] [address] [place] [address] May, [facility] [address] [place] [address] Apr, 13 [facility] [address] [facility] [id number] [address] [place] [address] Apr, [facility] [id number] [place] [address] Apr, [facility] [address] [place] [address] Apr, 13 [facility] [address] [place] [id number] [address] [place] [phone] Apr, [facility] [address] [place] [address] Apr, 13 [facility] [address] [place] [id number] [address] [place] [address] Apr, [facility] [address] [place] [address] Apr, 13 [facility] [address] [place] [id number] [address] [place] [address] Apr, [facility] [address] [place] [address] Apr, 13 [facility] [address] [place] [id number] [address] [place] [phone] Apr, [facility] [address] [place] [address] Mar, 13 [facility] [address] [place] [id number] [address] [place] [address] Mar, [facility] [address] [place] [address] Mar, 13 [place] [id number] [place] [phone] Mar, IMMUNIZATIONS No Known Immunizations SOCIAL HISTORY [...]
--- OUTSIDE RECORDS SUMMARY | 2019-09-08 13:53 | XMS REPORT ---
Author Author Ayla Stahl Organization [facility] Address [address] [place] [address] Care Team Providers Care Security Checker Name Role Phone GERSON Stahl Unavailable PROBLEMS Type Condition ICD9-CM Code OUN96-JN Code Onset Dates Condition S tatus SNOMED Code Problem Gastroparesis 536.3 Active 642135 006 Problem Esophageal reflux 530.81 Active 24 3195358 Problem Essential hypertension, benign 401.1 Active 0538967 Problem Need for prophylactic vaccination and inoculation, Influen za V04.81 Active 424631521 Problem Mixed hyperlipidemia E78.2 Active 625273105 Problem Lumbago 724.2 Active 934760165 Problem Gastro-esophageal reflux disease without esophagitis K21.9 Active 470156918 Problem Pain in joint, ankle and foot 719.47 Active 561835728 Problem Allergic rhinitis due to pollen 477.0 Active 60211035 Problem Depressive disorder, not elsewhere classified 311 Active 22364231 Problem Mixed hyperlipidemia 272.2 Active 923609056 Problem Essential (primary) hypertension I10 Active 52362151 ALLERGIES No Information ENCOUNTERS Encounter Location Date Diagnosis [facility] [address] [place] [address] Mar, 17 Encounter for immunization Z23 [facility] [address] [place] [address] Jan, 17 Elevated glucose level R73.09 [facility] [address] [place] [address] Jan, 17 Essential (primary) hypertension I10 [facility] [address] [place] [address] Dec, 17 Mixed hyperlipidemia E78.2 and Essential (primary) hypertension I10 [facility] [address] [place] [address] Dec, 17 Essential (primary) hypertension I10 and Gastro-esophageal reflux disease without esophagitis [facility]21.9 [facility] [address] [address] Mar, 16 [facility] [address] [address] Feb, 16 [facility] [address] [address] Jan, 16 Chronic kidney disease (CKD) stage G3b/A1, moderately decreased glomerular filtration rate (GFR) between 30-44 mL/min/1.73 square meter and albuminuria creatinine ratio less than 30 mg/g N18.3 [facility] [address] [address] Dec, 16 Essential (primary) hypertension I10 and Mixed hyperlipidemia E78.2 [facility] [address] [address] Dec, 16 Essential (primary) hypertension I10 ; Gastro-esophageal reflux disease without esophagitis K21.9 and Gastroparesis K31.84 [facility] [address] [address] Dec, 16 [facility] [address] [address] 18 Jul, 16 Well woman exam Z01.419 ; Postmenopausal Z78.0 and Encounter for screening mammogram for malignant neoplasm of breast Z12.31 [facility] [address] [address] Jul, 16 Sh[address]les B02[address] [address] Jun, 16 Shingles B02.9 ; Low back pain M54.5 ; Sciatica, unspecified side M54.30 and [facility]counter for [facility] [address] [address] 04 Apr, 15 [facility] [address] [address] Mar, 15 Encounter for immunization Z23 [facility] [address] [place] [address] Jan, 15 [facility] [address] [place] [address] Jan, 15 [facility] [address] [place] [address] Nov, 15 Lumbar back pain 724.2 [facility] [address] [place] [address] Nov, 15 [facility] [address] [place] [address] Nov, 15 [facility] [address] [place] [address] Nov, 15 [facility] [address] [place] [address] Nov, 15 [facility] [address] [place] [address] Nov, 15 [facility] [address] [place] [address] Nov, 15 Gastroparesis 536.3 ; Essential hypertension, benign 401.1 ; Other vitamin B12 deficiency anemia 281.1 ; Malaise and fatigue 780.79 and Mixed hyperlipidemia 272.2 [facility] [address] [place] [address] Nov, 15 Gastroparesis 536.3 ; Essential hypertension, benign 401.1 and Esophageal reflux 530.81 [facility] [address] [place] [address] October, 15 Other vitamin B12 deficiency anemia 281.1 and Malaise and fatigue 780.[address] [id number] [address] [place] [address] Sep, [place] [id number] [address] [place] [address] Sep, [facility] [address] [place] [address] Aug, 15 [place] [id number] [address] [place] [address] Aug, [facility] [place] [address] [place] [address] 10 Apr, 14 [facility] [address] [facility] [id number] [address] [place] [address] 10 Apr, 2014 [facility] [address] [place] [address] 16 Mar, 14 [facility] [address] [facility] [id number] [address] [place] [address] 16 Mar, 2014 [facility] [address] [place] [address] 22 Feb, 14 [facility] [address] [facility] [id number] [address] [place] [address] 22 Feb, 2013 [facility] [address] [place] [address] 18 Feb, 14 [facility] [address] [facility] [id number] [address] [place] [address] 18 Feb, 2013 [facility] [address] [place] [address] 17 Feb, 14 [facility] [address] [place] [address] 17 Feb, 14 [facility] [address] [facility] [id number] [address] [place] [address] 17 Feb, 2013 [facility] [address] [facility] [id number] [address] [place] [address] 17 Feb, 2013 [facility] [address] [facility] [id number] [address] [place] [address] 17 Feb, 2013 [facility] [address] [facility] [id number] [address] [place] [address] 17 Feb, 2013 [facility] [address] [place] [address] 17 Feb, 20 14 [facility] [address] [place] [address] 17 Feb, 20 14 [facility] [address] [place] [place] [address] Nov, 14 [facility] [address] [facility] [id number] [facility] [place] [address] Nov, [facility] [address] [place] [address] Sep, 14 [facility] [address] [facility] [id number] [facility] [place] [address] Sep, [facility] [address] [place] [address] Sep, 14 [facility] [address] [facility] [id number] [address] [place] [address] Sep, [facility] [address] [place] [address] Sep, 14 [facility] [address] [facility] [id number] [address] [place] [address] Sep, [facility] [address] [place] [address] Aug, 14 [facility] [address] [place] [address] Aug, 14 [facility] [address] [place] [address] Aug, 14 [facility] [address] [place] [address] Aug, 14 [facility] [address] [place] [address] Aug, 14 [facility] [address] [facility] [id number] [facility] [place] [address] Aug, [facility] [address] [facility] [id number] [address] [place] [address], [place] [address] Aug, [facility] [address] [facility] [id number] [facility] [place] [address] Aug, [facility] [address] [facility] [id number] [address] [place] [phone] Aug, [facility] [address] [id number] [facility] [place] [address] Aug, [facility] [address] [facility] [id number] [address] [place] [address], [place] [address] Aug, [facility] [address] [place] [address] Aug, 14 [facility] [address] [facility] [id number] [facility] [place] [address] Aug, [facility] [address] [facility] [id number] [address] [place] [address], [place] [address] Aug, [facility] [address] [facility] [id number] [address] [place] [address], [place] [address] Aug, [facility] [address] [place] [address] Aug, 14 [facility] [address] [place] [address] Aug, 14 [facility] [address] [facility] [id number] [address] [place] [address], [place] [address] Aug, [facility] [address] [place] [address] Jul, 14 [facility] [address] [facility] [id number] [address] [place] [address], [place] [address] Jul, [facility] [address] [place] [address] Jun, 14 [facility] [address] [facility] [id number] [address] [place] [address], [place] [address] Jun, [facility] [address] [place] [address] Jun, 14 [facility] [address] [facility] [id number] [address] [place] [address], [place] [address] Jun, [facility] [address] [place] [address] Jun, 14 [facility] [address] [facility] [id number] [address] [place] [address] Jun, [facility] [address] [place] [address] Jun, 14 [facility] [address] [facility] [id number] [address] [place] [address] Jun, [facility] [address] [place] [address] May, 13 [facility] [address] [facility] [id number] [address] [place] [address] May, [facility] [address] [place] [address] May, 13 [facility] [address] [facility] [id number] [address] [place] [address] May, [facility] [address] [place] [address] May, 13 [facility] [address] [facility] [id number] [address] [place] [address] May, [facility] [address] [place] [address] May, 13 [facility] [address] [facility] [id number] [address] [place] [address] May, [facility] [address] [place] [address] May, 13 [facility] [address] [facility] [id number] [address] [place] [address] May, [facility] [address] [place] [address] May, 13 [facility] [address] [facility] [id number] [address] [place] [address] May, [facility] [address] [place] [address] Apr, 13 [facility] [address] [facility] [id number] [address] [place] [address] Apr, [facility] [address] [facility] [id number] [address] [place] [address] Apr, [facility] [address] [place] [address] Apr, 13 [facility] [address] [place] [id number] [address] [place] [address] Apr, [facility] [address] [place] [address] Apr, 13 [facility] [address] [place] [id number] [address] [place] [address] Apr, [facility] [address] [place] [address] Apr, 13 [facility] [address] [place] [id number] [address] [place] [address] Apr, [facility] [address] [place] [address] Apr, 13 [facility] [id number] [place] [address] Apr, [facility] [address] [place] [address] Mar, 13 [facility] [address] [place] [id number] [address] [place] [address] Mar, [facility] [address] [place] [address] Mar, 13 [facility] [address] [place] [id number] [address] [place] [address] Mar, IMMUNIZATIONS No Known Immunizations SOCIAL HISTORY [...]
--- OUTSIDE RECORDS SUMMARY | 2019-09-08 13:53 | XMS REPORT ---
Author Author Ayla Stahl Organization [facility] Address [address] [place] [address] Care Team Providers Care Optical Fabricator Name Role Phone GERSON Stahl Unavailable PROBLEMS Type Condition ICD9-CM Code KLU59-EM Code Onset Dates Condition S tatus SNOMED Code Problem Gastroparesis 536.3 Active 630202 006 Problem Esophageal reflux 530.81 Active 24 2685022 Problem Essential hypertension, benign 401.1 Active 4609195 Problem Need for prophylactic vaccination and inoculation, Influen za V04.81 Active 506043167 Problem Mixed hyperlipidemia E78.2 Active 750697303 Problem Lumbago 724.2 Active 393480729 Problem Gastro-esophageal reflux disease without esophagitis K21.9 Active 981455931 Problem Pain in joint, ankle and foot 719.47 Active 761403727 Problem Allergic rhinitis due to pollen 477.0 Active 81343670 Problem Depressive disorder, not elsewhere classified 311 Active 18689344 Problem Mixed hyperlipidemia 272.2 Active 717786279 Problem Essential (primary) hypertension I10 Active 36378424 ALLERGIES No Information ENCOUNTERS Encounter Location Date Diagnosis [facility] [address] [place] [address] Mar, 17 Encounter for immunization Z23 [facility] [address] [place] [address] Jan, 17 Elevated glucose level R73.09 [facility] [address] [place] [address] Jan, 17 Essential (primary) hypertension I10 [facility] [address] [place] [address] Dec, 17 Mixed hyperlipidemia E78.2 and Essential (primary) hypertension I10 [facility] [address] [place] [address] Dec, 17 Essential (primary) hypertension I10 and Gastro-esophageal reflux disease without esophagitis [facility]21.9 [facility] [address] [address] Mar, 16 [facility] [address] [address] Feb, 16 [facility] for [facility]23 [facility] [address] [address] Jan, 16 Chronic kidney disease (CKD) stage G3b/A1, moderately decreased glomerular filtration rate (GFR) between 30-44 mL/min/1.73 square meter and albuminuria creatinine ratio less than 30 mg/g N18.3 [facility] [address] [address] Dec, 16 Essential (primary) hypertension I10 and Mixed hyperlipidemia E78.2 [facility] [address] [address] Dec, 16 Essential (primary) hypertension I10 ; Gastro-esophageal reflux disease without esophagitis K21.9 and Gastroparesis K31.84 [facility] [address] [address] Dec, 16 [facility] [address] [address] 18 Jul, 16 Well woman exam Z01.419 ; Postmenopausal Z78.0 and Encounter for screening mammogram for malignant neoplasm of breast Z12.31 [facility] [address] [address] Jul, 16 [address] B02.[address] [address] Jun, 16 Shingles B02.9 ; Low back pain M54.5 ; Sciatica, unspecified side M54.30 and [facility] [address] [address] 04 Apr, 15 [facility] [address] [address] Mar, 15 Encounter for immunization Z23 [facility] [address] [place] [address] Jan, 15 [facility] [address] [place] [address] Jan, 15 [facility] [address] [place] [address] Nov, 15 Lumbar back pain 724.2 [facility] [address] [place] [address] Nov, 15 [facility] [address] [place] [address] Nov, 15 [facility] [address] [place] [address] Nov, 15 [facility] [address] [place] [address] Nov, 15 [facility] [address] [place] [address] Nov, 15 [facility] [address] [place] [address] Nov, 15 Gastroparesis 536.3 ; Essential hypertension, benign 401.1 ; Other vitamin B12 deficiency anemia 281.1 ; Malaise and fatigue 780.79 and Mixed hyperlipidemia 272.2 [facility] [address] [place] [address] Nov, 15 Gastroparesis 536.3 ; Essential hypertension, benign 401.1 and Esophageal reflux 530.81 [facility] [address] [place] [address] October, 15 Other vitamin B12 deficiency anemia 281.1 and Malaise and fatigue 780.[address] [id number] [address] [place] [address] Sep, [place] [id number] [address] [place] [address] Sep, [facility] [address] [place] [address] Aug, 15 [place] [id number] [address] [place] [address] Aug, [facility] [address] [place] [address] 10 Apr, 14 [facility] [address] [facility] [id number] [address] [place] [address] 10 Apr, 2014 [facility] [address] [place] [address] 16 Mar, 14 [facility] [address] [facility] [id number] [address] [place] [address] 16 Mar, 2014 [facility] [address] [place] [address] 22 Feb, 14 [facility] [address] [facility] [id number] [address] [place] [address] 22 Feb, 2013 [facility] [address] [place] [address] 18 Feb, 14 [facility] [address] [facility] [id number] [address] [place] [address] 18 Feb, 2013 [facility] [address] [place] [address] 17 Feb, 14 [facility] [address] [place] [address] 17 Feb, 14 [facility] [address] [facility] [id number] [address] [place] [address] 17 Feb, 2013 [facility] [address] [facility] [id number] [address] [place] [address] 17 Feb, 2013 [facility] [address] [facility] [id number] [address] [place] [address] 17 Feb, 2013 [facility] [address] [facility] [id number] [address] [place] [address] 17 Feb, 2013 [facility] [address] [place] [address] 17 Feb, 20 14 [facility] [address] [place] [address] 17 Feb, 20 14 [facility] [address] [facility] [place] [address] Nov, 14 [facility] [address] [facility] [id number] [address] [place] [address] Nov, [facility] [address] [place] [address] Sep, 14 [facility] [address] [facility] [id number] [address] [place] [address] Sep, [facility] [address] [place] [address] Sep, 14 [facility] [address] [facility] [id number] [address] [place] [address] Sep, [facility] [address] [place] [address] Sep, 14 [facility] [address] [facility] [id number] [address] [place] [address] Sep, [facility] [address] [place] [address] Aug, 14 [facility] [address] [place] [address] Aug, 14 [facility] [address] [facility] [place] [address] Aug, 14 [facility] [address] [place] [address] Aug, 14 [facility] [address] [place] [address] Aug, 14 [facility] [address] [facility] [id number] [address] [address] Aug, [facility] [address] [facility] [id number] [address] [place] [address], [place] [address] Aug, [facility] [address] [facility] [id number] [address] [address] Aug, [facility] [address] [facility] [id number] [address] [place] [address] Aug, [facility] [address] [id number] [address] [address] Aug, [facility] [address] [facility] [id number] [address] [place] [address], [place] [address] Aug, [facility] [address] [place] [address] Aug, 14 [facility] [address] [facility] [id number] [address] [address] Aug, [facility] [address] [facility] [id number] [address] [place] [address], [place] [address] Aug, [facility] [address] [facility] [id number] [address] [place] [address], [place] [address] Aug, [facility] [address] [place] [address] Aug, 14 [facility] [address] [place] [address] Aug, 14 [facility] [address] [facility] [id number] [address] [place] [address], [place] [address] Aug, [facility] [address] [place] [address] Jul, 14 [facility] [address] [facility] [id number] [address] [place] [address], [place] [address] Jul, [facility] [address] [place] [address] Jun, 14 [facility] [address] [facility] [id number] [address] [place] [address], [place] [address] Jun, [facility] [address] [place] [address] Jun, 14 [facility] [address] [facility] [id number] [address] [place] [address], [place] [address] Jun, [facility] [address] [place] [address] Jun, 14 [facility] [address] [facility] [id number] [address] [place] [address] Jun, [facility] [address] [place] [address] Jun, 14 [facility] [address] [facility] [id number] [address] [place] [address] Jun, [facility] [address] [place] [address] May, 13 [facility] [address] [facility] [id number] [address] [place] [address] May, [facility] [address] [place] [address] May, 13 [facility] [address] [facility] [id number] [address] [place] [address] May, [facility] [address] [place] [address] May, 13 [facility] [address] [facility] [id number] [address] [place] [address] May, [facility] [address] [place] [address] May, 13 [facility] [address] [facility] [id number] [address] [place] [address] May, [facility] [address] [place] [address] May, 13 [facility] [address] [facility] [id number] [address] [place] [address] May, [facility] [address] [place] [address] May, 13 [facility] [address] [facility] [id number] [address] [place] [address] May, [facility] [address] [place] [address] Apr, 13 [facility] [address] [facility] [id number] [address] [place] [address] Apr, [facility] [address] [facility] [id number] [address] [place] [address] Apr, [facility] [address] [place] [address] Apr, 13 [facility] [address] [place] [id number] [address] [place] [address] Apr, [facility] [address] [place] [address] Apr, 13 [facility] [address] [place] [id number] [address] [place] [address] Apr, [facility] [address] [place] [address] Apr, 13 [facility] [address] [place] [id number] [address] [place] [address] Apr, [facility] [address] [place] [address] Apr, 13 [facility] [address] [place] [id number] [address] [place] [address] Apr, [facility] [address] [place] [address] Mar, 13 [facility] [address] [place] [id number] [address] [place] [address] Mar, [facility] [address] [place] [address] Mar, 13 [place] [address] [place] [id number] [address] [place] [address] Mar, IMMUNIZATIONS No Known Immunizations SOCIAL HISTORY Never Assessed REASON FOR VISIT PLAN OF CARE VITAL SIGNS MEDICATIONS Unknown Medications RESULTS No Results PROCEDURES Procedure Date Ordered Result Body Site IMMUNOTHERAPY, ONE INJECTION Jun 28, 2013 INSTRUCTIONS MEDICATIONS ADMINISTERED No Known Medications [...]
--- OUTSIDE RECORDS SUMMARY | 2019-09-08 13:53 | XMS REPORT ---
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 Name Role Phone Migration, Doctor Unavailable Unavailable PROBLEMS Type Condition ICD9-CM Code [id number] Code Onset Dates Condition S tatus SNOMED Code Problem Gastroparesis 536.3 Active 593894 006 Problem Esophageal reflux 530.81 Active 24 2803428 Problem Essential hypertension, benign 401.1 Active 4357282 Problem Need for prophylactic vaccination and inoculation, Influen za V04.81 Active 773836205 Problem Mixed hyperlipidemia E78.2 Active 482549431 Problem Lumbago 724.2 Active 552171803 Problem Gastro-esophageal reflux disease without esophagitis K21.9 Active 121196271 Problem Pain in joint, ankle and foot 719.47 Active 996726688 Problem Allergic rhinitis due to pollen 477.0 Active 00876768 Problem Depressive disorder, not elsewhere classified 311 Active 30596133 Problem Mixed hyperlipidemia 272.2 Active 718961643 Problem Essential (primary) hypertension I10 Active 19750972 ALLERGIES No Information ENCOUNTERS Encounter Location Date Diagnosis [facility] [address] [place] [address] Mar, 17 Encounter for immunization Z23 [address] [address] Jan, 17 Elevated glucose level R73.[address] [address] Jan, 17 Essential (primary) hypertension I10 [facility] [address] [place] [address] Dec, 17 Mixed hyperlipidemia E78.2 and Essential (primary) hypertension I10 [facility] [address] [place] [address] Dec, 17 Essential (primary) hypertension I10 and Gastro-esophageal reflux disease without esophagitis K21.9 [facility] [address] [place] [address] Mar, 16 Encounter for immunization Z23 [facility] [address] [address] Feb, 16 Encounter for immunization Z23 [facility] [address] [address] Jan, 16 Chronic kidney disease (CKD) stage G3b/A1, moderately decreased glomerular filtration rate (GFR) between 30-44 mL/min/1.73 square meter and albuminuria creatinine ratio less than 30 mg/g N18.3 [facility] [address] [address] Dec, 16 Essential (primary) hypertension I10 and Mixed hyperlipidemia E78.[address] [address] Dec, 16 Essential (primary) hypertension I10 ; Gastro-esophageal reflux disease without esophagitis K21.9 and Gastroparesis K31.[address] [address] Dec, [facility] [address] [address] 18 Jul, 16 Well woman exam Z01.419 ; Postmenopausal Z78.0 and Encounter for screening mammogram for malignant neoplasm of [facility] [address] [address] 10 Jul, 16 [facility]ing[facility] B02.9 [facility] [address] [address] Jun, 16 Shingles B02.9 ; Low back pain M54.5 ; Sciatica, unspecified side M54.30 and Encounter for immunization Z23 [facility] [address] [address] Apr, 15 [facility] [address] [address] Mar, 15 [facility] [address] [address] Jan, [address] [facility] [address] [place] [address] 05 Jan, 15 [facility] [address] [place] [address] 17 Nov, 15 Lumbar back pain 724.2 [facility] [address] [place] [address] Nov, 15 [facility] [address] [place] [address] Nov, 15 [facility] [address] [place] [address] Nov, 15 [facility] [address] [place] [address] 08 Nov, 15 [facility] [address] [place] [address] Nov, 15 [facility] [address] [place] [address] 05 Nov, 15 Gastroparesis 536.3 ; Essential hypertension, benign 401.1 ; Other vitamin B12 deficiency anemia 281.1 ; Malaise and fatigue 780.79 and Mixed hyperlipidemia 272.2 [facility] [address] [place] [address] Nov, 15 Gastroparesis 536.3 ; Essential hypertension, benign 401.1 and Esophageal reflux 530.81 [facility] [address] [place] [address] October, 15 Other vitamin B12 deficiency anemia 281.1 and Malaise and fatigue 780.[address] [id number] [address] [place] [address] Sep, [address] [id number] [address] [place] [address] Sep, [facility] [address] [place] [address] Aug, [address] [id number] [address] [place] [address] Aug, [facility] [address] [place] [address] Apr, 14 [facility] [address] [facility] [id number] [address] [place] [address] 10 Apr, 2014 [facility] [place] [address] [place] [address] 16 Mar, 14 [facility] [address] [facility] [id number] [address] [place] [address] 16 Mar, 2013 [facility] [place] [address] [place] [address] 22 Feb, 14 [facility] [address] [facility] [id number] [address] [place] [address] 22 Feb, 2013 [facility] [place] [address] [place] [address] 18 Feb, 14 [facility] [address] [facility] [id number] [address] [place] [address] 18 Feb, 2013 [facility] [place] [address] [place] [address] 17 Feb, 14 [facility] [place] [address] [place] [address] 17 Feb, 14 [facility] [address] [facility] [id number] [address] [place] [address] 17 Feb, 2013 [facility] [address] [facility] [id number] [address] [place] [address] 17 Feb, 2013 [facility] [address] [facility] [id number] [address] [place] [address] 17 Feb, 2013 [facility] [address] [facility] [id number] [address] [place] [address] 17 Feb, 2013 [facility] [place] [address] [place] [address] 17 Feb, 14 [facility] [place] [address] [place] [address] 17 Feb, 14 [facility] [place] [address] [place] [address] 02 Nov, 14 [facility] [address] [facility] [id number] [facility] [place] [address] Nov, [facility] [place] [address] [facility] [place] [address] Sep, 14 [facility] [address] [id number] [address] [place] [address], [place] [address] Sep, [facility] [place] [address] [place] [address] Sep, 14 [facility] [address] [facility] [id number] [address] [place] [address] Sep, [facility] [place] [address] [place] [address] Sep, 14 [facility] [address] [facility] [id number] [address] [place] [address] Sep, [facility] [place] [address] [facility] [place] [address] Aug, 14 [facility] [place] [address] [facility] [place] [address] Aug, 14 [facility] [place] [address] [facility] [place] [address] Aug, 14 [facility] [place] [address] [facility] [place] [address] Aug, 14 [facility] [place] [address] [place] [address] Aug, 14 [facility] [address] [facility] [id number] [address] [place] [address], [place] [address] Aug, [facility] [address] [facility] [id number] [address] [place] [address], [place] [address] Aug, [facility] [address] [facility] [id number] [address] [place] [address], [place] [address] Aug, [facility] [address] [facility] [id number] [address] [place] [address], [place] [address] Aug, [facility] [address] [facility] [id number] [address] [place] [address] Aug, [facility] [address] [id number] [address] [place] [address] Aug, [facility] [place] [address] [place] [address] Aug, 14 [facility] [address] [id number] [address] [place] [address] Aug, [facility] [address] [facility] [id number] [address] [place] [address] Aug, [facility] [address] [facility] [id number] [address] [place] [address] Aug, [facility] [place] [address] [place] [address] Aug, 14 [facility] [place] [address] [place] [address] Aug, 14 [facility] [address] [facility] [id number] [address] [place] [address] Aug, [facility] [place] [address] [place] [address] Jul, 14 [facility] [address] [facility] [id number] [address] [place] [address] Jul, [facility] [place] [address] [place] [address] Jun, 14 [facility] [address] [facility] [id number] [address] [place] [address] Jun, [facility] [place] [address] [place] [address] Jun, 14 [facility] [address] [facility] [id number] [address] [place] [address] Jun, [facility] [place] [address] [place] [address] Jun, 14 [facility] [address] [facility] [id number] [address] [place] [address] Jun, [facility] [place] [address] [place] [address] Jun, 14 [facility] [address] [facility] [id number] [address] [place] [address], [place] [address] Jun, [facility] [place] [address] [place] [address] May, 13 [facility] [address] [facility] [id number] [address] [place] [address] May, [facility] [place] [address] [place] [address] May, 13 [facility] [address] [facility] [id number] [address] [place] [address] May, [facility] [place] [address] [place] [address] May, 13 [facility] [address] [facility] [id number] [address] [place] [address] May, [facility] [place] [address] [place] [address] May, 13 [facility] [address] [facility] [id number] [address] [place] [address] May, [facility] [place] [address] [place] [address] May, 13 [facility] [address] [facility] [id number] [address] [place] [address] May, [facility] [place] [address] [place] [address] May, 13 [facility] [address] [facility] [id number] [address] [place] [address] May, [facility] [place] [address] [place] [address] Apr, 13 [facility] [address] [facility] [id number] [address] [place] [address] Apr, [facility] [address] [facility] [id number] [address] [place] [address] Apr, [facility] [place] [address] [place] [address] Apr, 13 [facility] [address] [facility] [id number] [address] [place] [address] Apr, [facility] [place] [address] [place] [address] Apr, 13 [facility] [address] [facility] [id number] [address] [place] [address] Apr, [facility] [place] [address] [place] [address] Apr, 13 [facility] [address] [facility] [id number] [address] [place] [address] Apr, [facility] [place] [address] [place] [address] Apr, 13 [facility] [address] [facility] [id number] [address] [place] [address] Apr, [facility] [place] [address] [place] [address] Mar, 13 [facility] [address] [facility] [id number] [address] [place] [address] Mar, [facility] [place] [address] [place] [address] Mar, 13 [facility] [address] [facility] [id number] [address] [place] [address] Mar, IMMUNIZATIONS No Known Immunizations SOCIAL HISTORY Never Assessed REASON FOR VISIT [facility] PLAN OF CARE VITAL SIGNS MEDICATIONS Unknown Medications RESULTS No Results PROCEDURES Procedure Date Ordered Result Body Site IMMUNOTHERAPY, ONE INJECTION May 19, 2013 INSTRUCTIONS MEDICATIONS ADMINISTERED No Known Medications [...]
--- OUTSIDE RECORDS SUMMARY | 2019-09-08 13:54 | XMS REPORT ---
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 Name Role Phone BRIEN HERNANDEZ CP Unavailable Allergies No Known Allergies Problems Problem Type Condition Code Onset Dates Condition Statu s Problem Esophageal reflux 530.81 Active Problem Lumbago 724.2 Active Problem Need for prophylactic vaccination and inoculation, Inf luenza V04.81 Active Assessment Encounter for immunization Z23 A ctive Problem Depressive disorder, not elsewhere classified 311 Active Problem Essential (primary) hypertension I10 Active Problem Pain in joint, ankle and foot 719.47 Active Problem Mixed hyperlipidemia E78.2 Active Problem Mixed hyperlipidemia 272.2 Active Problem Essential hypertension, benign 401.1 Active Problem Allergic rhinitis due to pollen 477.0 Active Problem Gastroparesis 536.3 Active Medications No Known Medications Procedures Procedure Coding System Code Date SINGLE IMMUNIZATION ADMIN CPT-4 52739 Mar FLUARIX QUAD P-FREE 3 AND UP .50 2015 CPT-4 59595 Apr 24, 2016 Results No Known Results Immunizations Vaccine Administration Date FLUARIX QUAD P-FREE 3 AND UP .50 2015Apr 24, 2016 Summary Purpose [employer] Submission
--- OUTSIDE RECORDS SUMMARY | 2019-09-08 13:54 | XMS REPORT ---
Author Author Ayla HERNANDEZ Organization [facility] Address [address] [place] [address] Care Team Providers Care Sales Training Manager Name Role Phone BRIEN HERNANDEZ Unavailable PROBLEMS Type Condition ICD9-CM Code [id number] Code Onset Dates Condition S tatus SNOMED Code Problem Need for prophylactic vaccination and inoculation, Influen za V04.81 Active 245827776 Problem Essential hypertension, benign 401.1 Active 5382744 Problem Lumbago 724.2 Active 677010545 Assessment Encounter for immunization Z23 Feb, Active 886684088 Problem Depressive disorder, not elsewhere classified 311 Active 96063354 Problem Esophageal reflux 530.81 Active 24 0416902 Problem Mixed hyperlipidemia E78.2 Active 964936573 Problem Essential (primary) hypertension I10 Active 55540765 Problem Gastroparesis 536.3 Active 627059 006 Problem Mixed hyperlipidemia 272.2 Active 380752913 Problem Pain in joint, ankle and foot 719.47 Active 664248949 Problem Allergic rhinitis due to pollen 477.0 Active 54635578 ALLERGIES Unknown Allergies SOCIAL HISTORY No smoking Hx information available PLAN OF CARE VITAL SIGNS MEDICATIONS Unknown Medications RESULTS No Results PROCEDURES Procedure Date Ordered Related Diagnosis Body Site ZOSTER (ZOSTAVAX) Mar 27, 2016 SINGLE IMMUNIZATION ADMIN Mar 27, 2016 IMMUNIZATIONS Vaccine Route Administration Date Status ZOSTER (ZOSTAVAX) SC Subcutaneous Mar 27, 2016 Administered
--- OUTSIDE RECORDS SUMMARY | 2019-09-08 13:54 | XMS REPORT ---
Author Author Ayla Bai Doctor Organization [facility] Address Unknown Phone Unavailable Care Team Providers Care Survey Data Technician Name Role Phone Migration, Doctor Unavailable Unavailable PROBLEMS Type Condition ICD9-CM Code [id number] Code Onset Dates Condition S tatus SNOMED Code Problem Gastroparesis 536.3 Active 265532 006 Problem Esophageal reflux 530.81 Active 24 0078396 Problem Essential hypertension, benign 401.1 Active 8787213 Problem Need for prophylactic vaccination and inoculation, Influen za V04.81 Active 705970995 Problem Mixed hyperlipidemia E78.2 Active 652666019 Problem Lumbago 724.2 Active 167451851 Problem Gastro-esophageal reflux disease without esophagitis K21.9 Active 691711250 Problem Pain in joint, ankle and foot 719.47 Active 962417012 Problem Allergic rhinitis due to pollen 477.0 Active 41517374 Problem Depressive disorder, not elsewhere classified 311 Active 44729717 Problem Mixed hyperlipidemia 272.2 Active 966172606 Problem Essential (primary) hypertension I10 Active 06429458 ALLERGIES No Information ENCOUNTERS Encounter Location Date Diagnosis [facility] [address] [place] [address] Mar, 17 Encounter for immunization Z23 [address] [address] Jan, 17 Elevated glucose level R73.[address] [address] Jan, 17 Essential (primary) hypertension I10 [facility] [address] [place] [address] Dec, 17 Mixed hyperlipidemia E78.2 and Essential (primary) hypertension I10 [facility] [address] [place] [address] Dec, 17 Essential (primary) hypertension I10 and Gastro-esophageal reflux disease without esophagitis K21.9 [facility] [address] [place] [address] Mar, 16 Encounter for immunization Z23 [facility] [address] [address] Feb, 16 Encounter for immunization Z23 [facility] [address] [address] Jan, 16 Chronic kidney disease (CKD) stage G3b/A1, moderately decreased glomerular filtration rate (GFR) between 30-44 mL/min/1.73 square meter and albuminuria creatinine ratio less than 30 mg/g N18.3 [facility] [address] [address] Dec, 16 Essential (primary) hypertension I10 and Mixed hyperlipidemia E78.[address] [address] Dec, 16 Essential (primary) hypertension I10 ; Gastro-esophageal reflux disease without esophagitis K21.9 and Gastroparesis K31.[address] [address] Dec, 16 [facility] [address] [address] 18 Jul, 16 Well woman exam Z01.419 ; Postmenopausal Z78.0 and Encounter for screening mammogram for malignant neoplasm of [facility] [address] [address] 10 Jul, 16 [facility] B02.9 [facility] [address] [address] Jun, 16 Shingles B02.9 ; Low back pain M54.5 ; Sciatica, unspecified side M54.30 and Encounter for immunization Z23 [facility] [address] [address] Apr, 15 [facility] [address] [address] Mar, 15 [facility] [address] [address] Jan, [address] [facility] [address] [place] [address] 05 Jan, 15 [facility] [place] [address] [place] [address] 17 Nov, 15 Lumbar back pain 724.2 [facility] [address] [place] [address] Nov, 15 [facility] [address] [place] [address] Nov, 15 [facility] [address] [place] [address] Nov, 15 [facility] [address] [place] [address] 08 Nov, 15 [facility] [address] [place] [address] Nov, 15 [facility] [address] [place] [address] 05 Nov, 15 Gastroparesis 536.3 ; Essential hypertension, benign 401.1 ; Other vitamin B12 deficiency anemia 281.1 ; Malaise and fatigue 780.79 and Mixed hyperlipidemia 272.2 [facility] [address] [place] [address] Nov, 15 Gastroparesis 536.3 ; Essential hypertension, benign 401.1 and Esophageal reflux 530.81 [facility] [address] [place] [address] October, 15 Other vitamin B12 deficiency anemia 281.1 and Malaise and fatigue 780.[address] [id number] [address] [place] [address] Sep, [address] [id number] [address] [place] [address] Sep, [facility] [address] [place] [address] Aug, [address] [id number] [address] [place] [address] Aug, [facility] [address] [place] [address] Apr, 14 [facility] [address] [facility] [id number] [address] [place] [address] 10 Apr, 2014 [facility] [place] [address] [place] [address] 16 Mar, 14 [facility] [address] [facility] [id number] [address] [place] [address] 16 Mar, 2013 [facility] [place] [address] [place] [address] 22 Feb, 14 [facility] [address] [facility] [id number] [address] [place] [address] 22 Feb, 2013 [facility] [place] [address] [place] [address] 18 Feb, 14 [facility] [address] [facility] [id number] [address] [place] [address] 18 Feb, 2013 [facility] [place] [address] [place] [address] 17 Feb, 14 [facility] [place] [address] [place] [address] 17 Feb, 14 [facility] [address] [facility] [id number] [address] [place] [address] 17 Feb, 2013 [facility] [address] [facility] [id number] [address] [place] [address] 17 Feb, 2013 [facility] [address] [facility] [id number] [address] [place] [address] 17 Feb, 2013 [facility] [address] [facility] [id number] [address] [place] [address] 17 Feb, 2013 [facility] [place] [address] [place] [address] 17 Feb, 14 [facility] [place] [address] [place] [address] 17 Feb, 14 [facility] [place] [address] [place] [address] 02 Nov, 14 [facility] [address] [facility] [id number] [address] [place] [address] Nov, [facility] [place] [address] [facility] [place] [address] Sep, 14 [facility] [address] [id number] [address] [place] [address], [place] [address] Sep, [facility] [place] [address] [place] [address] Sep, 14 [facility] [address] [facility] [id number] [address] [place] [address] Sep, [facility] [place] [address] [place] [address] Sep, 14 [facility] [address] [facility] [id number] [address] [place] [address] Sep, [facility] [place] [address] [facility] [place] [address] Aug, 14 [facility] [place] [address] [facility] [place] [address] Aug, 14 [facility] [place] [address] [facility] [place] [address] Aug, 14 [facility] [place] [address] [facility] [place] [address] Aug, 14 [facility] [place] [address] [facility] [place] [address] Aug, 14 [facility] [address] [facility] [id number] [address] [place] [address], [place] [address] Aug, [facility] [address] [facility] [id number] [address] [place] [address], [place] [address] Aug, [facility] [address] [facility] [id number] [address] [place] [address], [place] [address] Aug, [facility] [address] [facility] [id number] [address] [place] [address], [place] [address] Aug, [facility] [address] [facility] [id number] [address] [place] [address] Aug, [facility] [address] [id number] [address] [place] [address] Aug, [facility] [place] [address] [place] [address] Aug, 14 [facility] [address] [id number] [address] [place] [address] Aug, [facility] [address] [facility] [id number] [address] [place] [address] Aug, [facility] [address] [facility] [id number] [address] [place] [address] Aug, [facility] [place] [address] [place] [address] Aug, 14 [facility] [place] [address] [place] [address] Aug, 14 [facility] [address] [facility] [id number] [address] [place] [address] Aug, [facility] [place] [address] [place] [address] Jul, 14 [facility] [address] [facility] [id number] [address] [place] [address] Jul, [facility] [place] [address] [place] [address] Jun, 14 [facility] [address] [facility] [id number] [address] [place] [address] Jun, [facility] [place] [address] [place] [address] Jun, 14 [facility] [address] [facility] [id number] [address] [place] [address] Jun, [facility] [place] [address] [place] [address] Jun, 14 [facility] [address] [facility] [id number] [address] [place] [address] Jun, [facility] [place] [address] [place] [address] Jun, 14 [facility] [address] [facility] [id number] [address] [place] [address], [place] [address] Jun, [facility] [place] [address] [place] [address] May, 13 [facility] [address] [facility] [id number] [address] [place] [address] May, [facility] [place] [address] [place] [address] May, 13 [facility] [address] [facility] [id number] [address] [place] [address] May, [facility] [place] [address] [place] [address] May, 13 [facility] [address] [facility] [id number] [address] [place] [address] May, [facility] [place] [address] [place] [address] May, 13 [facility] [address] [facility] [id number] [address] [place] [address] May, [facility] [place] [address] [place] [address] May, 13 [facility] [address] [facility] [id number] [address] [place] [address] May, [facility] [place] [address] [place] [address] May, 13 [facility] [address] [facility] [id number] [address] [place] [address] May, [facility] [place] [address] [place] [address] Apr, 13 [facility] [address] [facility] [id number] [address] [place] [address] Apr, [facility] [address] [facility] [id number] [address] [place] [address] Apr, [facility] [place] [address] [place] [address] Apr, 13 [facility] [address] [facility] [id number] [address] [place] [address] Apr, [facility] [place] [address] [place] [address] Apr, 13 [facility] [address] [facility] [id number] [address] [place] [address] Apr, [facility] [place] [address] [place] [address] Apr, 13 [facility] [address] [facility] [id number] [address] [place] [address] Apr, [facility] [place] [address] [place] [address] Apr, 13 [facility] [address] [facility] [id number] [address] [place] [address] Apr, [facility] [place] [address] [place] [address] Mar, 13 [facility] [address] [facility] [id number] [address] [place] [address] Mar, [facility] [place] [address] [place] [address] Mar, 13 [facility] [address] [facility] [id number] [address] [place] [address] Mar, IMMUNIZATIONS No Known Immunizations SOCIAL HISTORY Never Assessed REASON FOR VISIT [facility] CARE VITAL SIGNS MEDICATIONS Medication Instructions Dosage Frequency Start Date End Date Duration S tatus pirbuterol 200 mcg/actuation 1-2 Puffs b y Inhalation route 4 times per day PRN Aug, Active FeroSul 325 mg (65 mg iron) 1 Tablet by Oral route 1 t sean per day Aug, Active Proventil HFA 90 mcg/actuation inhale 2 puffs by inhalation route every 4 hours Sep, Active Famotidine 20 mg take 1 tablet (20 mg) by oral route o nce daily at bedtime Aug, Active Triamcinolone Acetonide 55 mcg spray 2 s prays in each nostril by INTRANASAL route 2 times per day PRN Aug, Ac tive Advair Diskus 250-50 mcg/dose inhale 1 p uff by inhalation route 2 times per day in the morning and evening approximately 12 hours apart Aug, Active Caltrate 600 600 mg (1,500 mg) 1 Tablet by Oral route 1 time per day Mar, Active Ondansetron HCl 4 mg take 1 tablets by Oral route 2 ti mes per day Sep, Active Lisinopril 2.5 mg take 1 tablet (2.5 mg) by oral route once daily Aug, Active montelukast 10 mg take 1 tablet (10 mg ) by oral route once daily in the evening PRN Feb, Active Polyethylene Glycol 3350 17 gram/dose ta ke 17 gram mixed with 8 oz. water, juice, soda, coffee or tea by oral route once daily Aug, Active Aciphex 20 mg 1 tablet swallow who le. Do not crush, chew and/or divide, 2 times per day Feb, Active Metoclopramide HCl 10 mg take 1 tablet by Oral route 2 times per day Aug, Active Aspirin 325 mg take 1 tablet (325 mg) by oral route once d aily Mar, Active RESULTS No Results PROCEDURES No Known procedures [...]
--- OUTSIDE RECORDS SUMMARY | 2019-09-08 13:54 | XMS REPORT ---
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 Name Role Phone GERSON DURON CP Unavailable Allergies No Known Allergies Problems Problem Type Condition Code Onset Dates Condition Statu s Problem Esophageal reflux 530.81 Active Problem Depressive disorder, not elsewhere classified 311 Active Problem Allergic rhinitis due to pollen 477.0 Active Problem Gastroparesis 536.3 Active Problem Pain in joint, ankle and foot 719.47 Active Problem Lumbago 724.2 Active Problem Need for prophylactic vaccination and inoculation, Inf luenza V04.81 Active Problem Mixed hyperlipidemia 272.2 Active Problem Essential hypertension, benign 401.1 Active Medications Medication Code System Code Instructions Start Date End Date Status Dosage Amoxicillin [facility] [address]-56 500 MG January 16, 2016 4 caps by mouth at the same time, approximately 1 hour before dental procedure. Results No Known Results Summary Purpose [employer] Submission
--- OUTSIDE RECORDS SUMMARY | 2019-09-08 13:54 | XMS REPORT ---
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 Info Not Available Non Drug Allergy Problems Problem Type Condition Code Onset Dates Condition Statu s Problem Esophageal reflux 530.81 Active Problem Lumbago 724.2 Active Problem Need for prophylactic vaccination and inoculation, Inf luenza V04.81 Active Assessment Chronic kidney disease (CKD) stage G3b/A1, moderately decreased glomerular filtration rate (GFR) between 30-44 mL/min/1.73 square meter and albuminuria creatinine ratio less than 30 mg/g N18.3 Active Problem Depressive disorder, not elsewhere classified 311 Active Problem Essential (primary) hypertension I10 Active Problem Pain in joint, ankle and foot 719.47 Active Problem Mixed hyperlipidemia E78.2 Active Problem Mixed hyperlipidemia 272.2 Active Problem Essential hypertension, benign 401.1 Active Problem Allergic rhinitis due to pollen 477.0 Active Problem Gastroparesis 536.3 Active Medications Medication Code System Code Instructions Start Date End Date Status Dosage Nitrostat [facility] [address]-35 0.4 MG Sublingual November 30, 2014 as directed Caltrate 600 [facility] [address]-36 600 mg (1,500 mg) Apr 29, 2013 1 Tablet by Oral route 1 time per day Ventolin HFA [facility] [address]-34 108 (90 Base) MCG/ACT Feb 08, 2015 2 puffs by inhalation 4 times a day as needed Polyethylene Glycol 3350 [facility] [address]-09 1 Using measuring cap mix 17gm with 8 oz of water, juice, soda, coffee, or tea and drink once a day Advair Diskus [facility] [address]-37 250-50 MCG/DOSE September 19, 2014 inhale 1 puff by inhalation route 2 times per day in the morning and evening approximately 12 hours apart Aspirin [facility] [address]-75 325 mg Apr 29, 2013 take 1 tablet (325 mg) by oral route once daily pirbuterol NDC 0 200 mcg/actuation September 22, 2013 1-2 Puffs by Inhalation route 4 times per day PRN Triamterene-HCTZ [facility] [address]-43 75-50 MG Orally Once a day 1 tablet in the morning Montelukast Sodium [facility] [address]-18 10 mg Orally Once a day December 1 tablet in the evening Lopid [facility] [address]-68 600 MG Orally Once a day 1 tablet Aciphex [facility] [address]-82 20 mg Mar 16, 2014 1 ta blet swallow whole. Do not crush, chew and/or divide, 2 times per day montelukast NDC 0 10 mg Mar 21, 2014 take 1 tablet (10 mg) by oral route once daily in the evening PRN Ondansetron HCl [facility] [address]-66 4 MG 2 times a day October 18, 2013 1 tablet Proventil HFA [facility] [address]-48 90 mcg/actuation October 08, 2013 inhale 2 puffs by inhalation route every 4 hours Famotidine [facility] [address]-60 20 mg Take 1 tablet by mouth at bedtime Nasacort AQ [facility] [address]-81 55 MCG/ACT Nasally Once a day December 05, 2014 1 puff in each nostril Triamcinolone Acetonide [facility] [address]-05 55 mcg September 22, 2013 spray 2 sprays in each nostril by INTRANASAL route 2 times per day PRN Lisinopril [facility] [address]-44 2.5 MG Take 1 tablet by mouth daily Metoclopramide HCl [facility] [address]-39 10 mg September 22, 2013 take 1 tablet by Oral route 2 times per day Procedures Procedure Coding System Code Date Office Visit, Est Pt., Level 3 CPT-4 43263 A 2015 MICROALBUMIN, SEMIQUANT CPT-4 33127 Feb 13, 2016 Vital Signs Date/Time: Feb 13, 2016 Cardiac Monitoring Heart Rate 78 bpm Weight 203.3 lbs Height 63 in BMI 36.01 Index Blood Pressure Diastolic 76 mmHg Blood Pressure Systolic 128 mmHg Results No Known Results Summary Purpose [employer]ClinicalWorks Submission
--- OUTSIDE RECORDS SUMMARY | 2019-09-08 13:54 | XMS REPORT ---
Author Ayla Bueno Organization [employer] Address Unknown Phone Unavailable Care Team Providers Care Consulting Application Engineer Name Role Phone GERSON DURON CP Unavailable Allergies No Known Allergies Problems Problem Type Condition Code Onset Dates Condition Statu s Problem Esophageal reflux 530.81 Active Problem Lumbago 724.2 Active Problem Need for prophylactic vaccination and inoculation, Inf luenza V04.81 Active Problem Essential (primary) hypertension I10 Active Problem Pain in joint, ankle and foot 719.47 Active Problem Mixed hyperlipidemia E78.2 Active Problem Mixed hyperlipidemia 272.2 Active Problem Essential hypertension, benign 401.1 Active Problem Allergic rhinitis due to pollen 477.0 Active Problem Gastroparesis 536.3 Active Assessment Mixed hyperlipidemia E78.2 Active Assessment Essential (primary) hypertension I10 Active Problem Depressive disorder, not elsewhere classified 311 Active Medications No Known Medications Procedures Procedure Coding System Code Date COMPREHEN METABOLIC PANEL CPT-4 64340 December 292015 LIPID PANEL CPT-4 94331 January 25, 2016 COMPLETE CBC W/AUTO DIFF WBC CPT-4 75784 Dec VENIPUNCT, ROUTINE* CPT-4 15057 January 24, 201 6 Results No Known Results Summary Purpose [employer]Works Submission
--- OUTSIDE RECORDS SUMMARY | 2019-09-08 13:54 | XMS REPORT ---
Author Ayla Bueno Organization [employer] Address Unknown Phone Unavailable Care Team Providers Care Civil Engineering Technician Name Role Phone GERSON DURON CP Unavailable Allergies No Known Allergies Problems Problem Type Condition Code Onset Dates Condition Statu s Assessment Encounter for immunization Z23 A ctive Problem Esophageal reflux 530.81 Active Problem Depressive disorder, not elsewhere classified 311 Active Problem Allergic rhinitis due to pollen 477.0 Active Problem Gastroparesis 536.3 Active Problem Pain in joint, ankle and foot 719.47 Active Problem Lumbago 724.2 Active Problem Need for prophylactic vaccination and inoculation, Inf luenza V04.81 Active Problem Mixed hyperlipidemia 272.2 Active Problem Essential hypertension, benign 401.1 Active Medications No Known Medications Procedures Procedure Coding System Code Date SINGLE IMMUNIZATION ADMIN CPT-4 91706 Mar FLUARIX QUAD (3 & UP)-GSK-2014 CPT-[address] 2014 Results No Known Results Immunizations Vaccine Administration Date FLUARIX QUAD (3 & UP)-GSK-2014Apr 06, 2015 Summary Purpose [employer]ClinicalWorks Submission
--- OUTSIDE RECORDS SUMMARY | 2019-09-08 13:54 | XMS REPORT ---
Author Author Ayla Bai Doctor Organization [facility] Address Unknown Phone Unavailable Care Team Providers Care Clinical Dermatologist Name Role Phone Migration, Doctor Unavailable Unavailable PROBLEMS Type Condition ICD9-CM Code QTP05-LK Code Onset Dates Condition S tatus SNOMED Code Problem Gastroparesis 536.3 Active 605759 006 Problem Esophageal reflux 530.81 Active 24 7167476 Problem Essential hypertension, benign 401.1 Active 3920443 Problem Need for prophylactic vaccination and inoculation, Influen za V04.81 Active 175737181 Problem Mixed hyperlipidemia E78.2 Active 733311226 Problem Lumbago 724.2 Active 889056690 Problem Gastro-esophageal reflux disease without esophagitis K21.9 Active 238577129 Problem Pain in joint, ankle and foot 719.47 Active 762354896 Problem Allergic rhinitis due to pollen 477.0 Active 38011048 Problem Depressive disorder, not elsewhere classified 311 Active 50767409 Problem Mixed hyperlipidemia 272.2 Active 234681608 Problem Essential (primary) hypertension I10 Active 33991188 ALLERGIES No Information ENCOUNTERS Encounter Location Date Diagnosis [facility] [address] [place] [address] Mar, 17 Encounter for immunization Z23 [address] [address] Jan, 17 Elevated glucose level R73.[address] [address] Jan, 17 Essential (primary) hypertension I10 [facility] [address] [place] [address] Dec, 17 Mixed hyperlipidemia E78.2 and Essential (primary) hypertension I10 [facility] [address] [place] [address] Dec, 17 Essential (primary) hypertension I10 and Gastro-esophageal reflux disease without esophagitis K21.9 [facility] [address] [place] [address] Mar, 16 Encounter for immunization Z23 [facility] [address] [address] Feb, 16 Encounter for immunization Z23 [facility] [address] [address] Jan, 16 Chronic kidney disease (CKD) stage G3b/A1, moderately decreased glomerular filtration rate (GFR) between 30-44 mL/min/1.73 square meter and albuminuria creatinine ratio less than 30 mg/g N18.3 [facility] [address] [address] Dec, 16 Essential (primary) hypertension I10 and Mixed hyperlipidemia E78.[address] [address] Dec, 16 Essential (primary) hypertension I10 ; Gastro-esophageal reflux disease without esophagitis K21.9 and Gastroparesis K31.[address] [address] Dec, 16 [facility] [address] [address] 18 Jul, 16 Well woman exam Z01.419 ; Postmenopausal Z78.0 and Encounter for screening mammogram for malignant neoplasm of breast [facility]12.31 [facility] [address] [address] 10 Jul, 16 Shingles B02.9 [facility] [address] [address] Jun, 16 Shingles B02.9 ; Low back pain M54.5 ; Sciatica, unspecified side M54.30 and Encounter for immunization Z23 [facility] [address] [address] Apr, 15 [facility] [address] [address] Mar, 15 [facility]counter for immunization [facility]23 [facility] [address] [address] Jan, [address] [facility] [address] [place] [address] 05 Jan, 15 [facility] [address] [place] [address] 17 Nov, 15 Lumbar back pain 724.2 [facility] [address] [place] [address] Nov, [address] [facility] [place] [facility] [place] [address] [place] [address] Nov, 15 [facility] [address] [place] [address] Nov, [address] [facility] [place] [facility] [place] [address] [place] [address] 08 Nov, 15 [facility] [address] [place] [address] Nov, 15 [facility] [place] [address] [place] [address] 05 Nov, 15 Gastroparesis 536.3 ; Essential hypertension, benign 401.1 ; Other vitamin B12 deficiency anemia 281.1 ; Malaise and fatigue 780.79 and Mixed hyperlipidemia 272.2 [facility] [place] [address] [place] [address] Nov, 15 Gastroparesis 536.3 ; Essential hypertension, benign 401.1 and Esophageal reflux 530.81 [facility] [place] [address] [place] [address] October, 15 Other vitamin B12 deficiency anemia 281.1 and Malaise and fatigue 780.[address] [id number] [address] [place] [address] Sep, [address] [id number] [address] [place] [address] Sep, [facility] [address] [place] [address] Aug, [address] [id number] [address] [place] [address] Aug, [facility] [address] [place] [address] Apr, 14 [facility] [address] [facility] [id number] [address] [place] [address] 10 Apr, 2014 [facility] [place] [address] [place] [address] 16 Mar, 14 [facility] [address] [facility] [id number] [address] [place] [address] 16 Mar, 2013 [facility] [place] [address] [place] [address] 22 Feb, 14 [facility] [address] [facility] [id number] [address] [place] [address] 22 Feb, 2013 [facility] [place] [address] [place] [address] 18 Feb, 14 [facility] [address] [facility] [id number] [address] [place] [address] 18 Feb, 2013 [facility] [place] [address] [place] [address] 17 Feb, 14 [facility] [place] [address] [place] [address] 17 Feb, 14 [facility] [address] [facility] [id number] [address] [place] [address] 17 Feb, 2013 [facility] [place] [address] [facility] [id number] [address] [place] [address] 17 Feb, 2013 [facility] [address] [facility] [id number] [address] [place] [address] 17 Feb, 2013 [facility] [address] [facility] [id number] [address] [place] [address] 17 Feb, 2013 [facility] [place] [address] [place] [address] 17 Feb, 14 [facility] [place] [address] [place] [address] 17 Feb, 14 [facility] [place] [address] [place] [address] 02 Nov, 14 [facility] [address] [facility] [id number] [facility] [place] [address] Nov, [facility] [place] [address] [facility] [place] [address] Sep, 14 [facility] [address] [id number] [address] [place] [address], [place] [address] Sep, [facility] [place] [address] [place] [address] Sep, 14 [facility] [address] [facility] [id number] [address] [place] [address] Sep, [facility] [place] [address] [place] [address] Sep, 14 [facility] [address] [facility] [id number] [address] [place] [address] Sep, [facility] [place] [address] [facility] [place] [address] Aug, 14 [facility] [place] [address] [facility] [place] [address] Aug, 14 [facility] [place] [address] [facility] [place] [address] Aug, 14 [facility] [place] [address] [facility] [place] [address] Aug, 14 [facility] [place] [address] [facility] [place] [address] Aug, 14 [facility] [address] [facility] [id number] [address] [place] [address], [place] [address] Aug, [facility] [address] [facility] [id number] [address] [place] [address], [place] [address] Aug, [facility] [address] [facility] [id number] [address] [place] [address], [place] [address] Aug, [facility] [address] [facility] [id number] [address] [place] [address], [place] [address] Aug, [facility] [address] [facility] [id number] [address] [place] [address] Aug, [facility] [address] [id number] [address] [place] [address] Aug, [facility] [place] [address] [place] [address] Aug, 14 [facility] [address] [id number] [address] [place] [address] Aug, [facility] [address] [facility] [id number] [address] [place] [address] Aug, [facility] [address] [facility] [id number] [address] [place] [address] Aug, [facility] [place] [address] [place] [address] Aug, 14 [facility] [place] [address] [place] [address] Aug, 14 [facility] [address] [facility] [id number] [address] [place] [address] Aug, [facility] [place] [address] [place] [address] Jul, 14 [facility] [address] [facility] [id number] [address] [place] [address] Jul, [facility] [place] [address] [place] [address] Jun, 14 [facility] [address] [facility] [id number] [address] [place] [address] Jun, [facility] [place] [address] [place] [address] Jun, 14 [facility] [address] [facility] [id number] [address] [place] [address] Jun, [facility] [place] [address] [place] [address] Jun, 14 [facility] [address] [facility] [id number] [address] [place] [address] Jun, [facility] [place] [address] [place] [address] Jun, 14 [facility] [address] [facility] [id number] [address] [place] [address], [place] [address] Jun, [facility] [place] [address] [place] [address] May, 13 [facility] [address] [facility] [id number] [address] [place] [address] May, [facility] [place] [address] [place] [address] May, 13 [facility] [address] [facility] [id number] [address] [place] [address] May, [facility] [place] [address] [place] [address] May, 13 [facility] [address] [facility] [id number] [address] [place] [address] May, [facility] [place] [address] [place] [address] May, 13 [facility] [address] [facility] [id number] [address] [place] [address] May, [facility] [place] [address] [place] [address] May, 13 [facility] [address] [facility] [id number] [address] [place] [address] May, [facility] [place] [address] [place] [address] May, 13 [facility] [address] [facility] [id number] [address] [place] [address] May, [facility] [place] [address] [place] [address] Apr, 13 [facility] [address] [facility] [id number] [address] [place] [address] Apr, [facility] [address] [facility] [id number] [address] [place] [address] Apr, [facility] [place] [address] [place] [address] Apr, 13 [facility] [address] [facility] [id number] [address] [place] [address] Apr, [facility] [place] [address] [place] [address] Apr, 13 [facility] [address] [facility] [id number] [address] [place] [address] Apr, [facility] [place] [address] [place] [address] Apr, 13 [facility] [address] [facility] [id number] [address] [place] [address] Apr, [facility] [place] [address] [place] [address] Apr, 13 [facility] [address] [facility] [id number] [address] [place] [address] Apr, [facility] [place] [address] [place] [address] Mar, 13 [facility] [address] [facility] [id number] [address] [place] [address] Mar, [facility] [place] [address] [place] [address] Mar, 13 [facility] [address] [facility] [id number] [address] [place] [address] Mar, IMMUNIZATIONS No Known Immunizations SOCIAL HISTORY Never Assessed REASON FOR VISIT [facility] [place] [place] CARE VITAL SIGNS MEDICATIONS Unknown [...]
--- OUTSIDE RECORDS SUMMARY | 2019-09-08 13:54 | XMS REPORT ---
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
--- OUTSIDE RECORDS SUMMARY | 2019-09-08 13:54 | XMS REPORT ---
Author Ayla Bueno [facility] [employer] Address Unknown Phone Unavailable Care Team Providers Care Engineering Vice President Name Role Phone GERSON DURON CP Unavailable Allergies, Adverse Reactions, Alerts Substance Reaction Event Type N.K.D.A. Info Not Available Non Drug Allergy Problems Problem Type Condition Code Onset Dates Condition Statu s Problem Depressive disorder, not elsewhere classified 311 Active Problem Need for prophylactic vaccination and inoculation, Inf luenza V04.81 Active Problem Esophageal reflux 530.81 Active Problem Pain in joint, ankle and foot 719.47 Active Problem Allergic rhinitis due to pollen 477.0 Active Problem Essential (primary) hypertension I10 Active Problem Essential hypertension, benign 401.1 Active Problem Lumbago 724.2 Active Problem Gastroparesis 536.3 Active Problem Mixed hyperlipidemia 272.2 Active Assessment Gastroparesis K31.84 Active Assessment Gastro-esophageal reflux disease without esophagitis K 21.9 Active Assessment Essential (primary) hypertension I10 Active Medications Medication Code System Code Instructions Start Date End Date Status Dosage Ondansetron HCl [facility] [address]-48 4 MG 2 times a day October 18, 2013 1 tablet Caltrate 600 [facility] [address]-62 600 mg (1,500 mg) Apr 29, 2013 1 Tablet by Oral route 1 time per day Montelukast Sodium [facility] [address]-15 10 mg Orally Once a day December 1 tablet in the evening Advair Diskus [facility] [address]-94 250-50 MCG/DOSE September 19, 2014 inhale 1 puff by inhalation route 2 times per day in the morning and evening approximately 12 hours apart Proventil HFA [facility] [address]-44 90 mcg/actuation October 08, 2013 inhale 2 puffs by inhalation route every 4 hours montelukast NDC 0 10 mg Mar 21, 2014 take 1 tablet (10 mg) by oral route once daily in the evening PRN Triamcinolone Acetonide [facility] [address]-67 55 mcg September 22, 2013 spray 2 sprays in each nostril by INTRANASAL route 2 times per day PRN Polyethylene Glycol 3350 [facility] [address]-75 1 Using measuring cap mix 17gm with 8 oz of water, juice, soda, coffee, or tea and drink once a day Lopid [facility] [address]-11 600 MG Orally Once a day 1 tablet Famotidine [facility] [address]-01 20 mg Take 1 tablet by mouth at bedtime Metoclopramide HCl [facility] [address]-50 10 mg September 22, 2013 take 1 tablet by Oral route 2 times per day Lisinopril [facility] [address]-51 2.5 MG Take 1 tablet by mouth daily Triamterene-HCTZ [facility] [address]-47 75-50 MG Orally Once a day 1 tablet in the morning Aciphex [facility] [address]-24 20 mg Mar 16, 2014 1 ta blet swallow whole. Do not crush, chew and/or divide, 2 times per day pirbuterol [facility] 0 200 mcg/actuation September 22, 2013 1-2 Puffs by Inhalation route 4 times per day PRN Nitrostat [facility] [address]-03 0.4 MG Sublingual November 30, 2014 as directed Nasacort AQ [facility] [address]-93 55 MCG/ACT Nasally Once a day December 05, 2014 1 puff in each nostril Aspirin [facility] [address]-24 325 mg Apr 29, 2013 take 1 tablet (325 mg) by oral route once daily Ventolin HFA [facility] [address]-27 108 (90 Base) MCG/ACT Feb 08, 2015 2 puffs by inhalation 4 times a day as needed Procedures Procedure Coding System Code Date Office Visit, Est Pt., Level 3 CPT-4 15766 [facility] 2015 Vital Signs Date/Time: January 24, 2016 Cardiac Monitoring Heart Rate 90 bpm Weight 206 lbs Height 63 in BMI 36.49 Index Blood Pressure Diastolic 66 mmHg Blood Pressure Systolic 166 mmHg Results No Known Results Summary Purpose [employer]ClinicalWorks Submission
--- OUTSIDE RECORDS SUMMARY | 2019-09-08 13:54 | XMS REPORT ---
Author Author Ayal Bai Doctor Organization [facility] [facility] Address Unknown Phone Unavailable Care Team Providers Care Operations And Maintenance Specialist Name Role Phone Migration, Doctor Unavailable Unavailable PROBLEMS Type Condition ICD9-CM Code AKA11-QP Code Onset Dates Condition S tatus SNOMED Code Problem Gastroparesis 536.3 Active 964549 006 Problem Esophageal reflux 530.81 Active 24 0713851 Problem Essential hypertension, benign 401.1 Active 8545909 Problem Need for prophylactic vaccination and inoculation, Influen za V04.81 Active 974906997 Problem Mixed hyperlipidemia E78.2 Active 184267985 Problem Lumbago 724.2 Active 041956437 Problem Gastro-esophageal reflux disease without esophagitis K21.9 Active 669875787 Problem Pain in joint, ankle and foot 719.47 Active 457204124 Problem Allergic rhinitis due to pollen 477.0 Active 73195379 Problem Depressive disorder, not elsewhere classified 311 Active 13792726 Problem Mixed hyperlipidemia 272.2 Active 464058651 Problem Essential (primary) hypertension I10 Active 97118565 ALLERGIES No Information ENCOUNTERS Encounter Location Date Diagnosis [facility] [address] [place] [phone] Mar, 17 Encounter for immunization Z23 [address] [address] Jan, 17 Elevated glucose level R73.[address] [address] Jan, 17 Essential (primary) hypertension I10 [facility] [address] [place] [address] Dec, 17 Mixed hyperlipidemia E78.2 and Essential (primary) hypertension I10 [facility] [address] [place] [address] Dec, 17 Essential (primary) hypertension I10 and Gastro-esophageal reflux disease without esophagitis K21.9 [facility] [address] [place] [address] Mar, 16 Encounter for immunization Z23 [facility] [address] [address] Feb, 16 Encounter for immunization Z23 [facility] [address] [address] Jan, 16 Chronic kidney disease (CKD) stage G3b/A1, moderately decreased glomerular filtration rate (GFR) between 30-44 mL/min/1.73 square meter and albuminuria creatinine ratio less than 30 mg/g N18.3 [facility] [address] [address] Dec, 16 Essential (primary) hypertension I10 and Mixed hyperlipidemia E78.[address] [address] Dec, 16 Essential (primary) hypertension I10 ; Gastro-esophageal reflux disease without esophagitis K21.9 and Gastroparesis K31.[address] [address] Dec, 16 [facility] [address] [address] 18 Jul, 16 Well woman exam Z01.419 ; Postmenopausal Z78.0 and Encounter for screening mammogram for malignant neoplasm of breast [facility] [address] [address] 10 Jul, 16 Shingles B02.9 [facility] [address] [address] Jun, 16 Shingles B02.9 ; Low back pain M54.5 ; Sciatica, unspecified side M54.30 and Encounter for immunization Z23 [facility] [address] [address] Apr, 15 [facility] [address] [address] Mar, 15 Encounter for immunization Z23 [facility] [address] [address] Jan, [address] [facility] [address] [place] [address] 05 Jan, 15 [facility] [place] [address] [place] [address] 17 Nov, 15 Lumbar back pain 724.2 [facility] [address] [place] [address] Nov, 15 [facility] [address] [place] [address] Nov, 15 [facility] [address] [place] [address] Nov, 15 [facility] [place] [address] [place] [address] 08 Nov, 15 [facility] [address] [place] [address] Nov, 15 [facility] [address] [place] [address] 05 Nov, 15 Gastroparesis 536.3 ; Essential hypertension, benign 401.1 ; Other vitamin B12 deficiency anemia 281.1 ; Malaise and fatigue 780.79 and Mixed hyperlipidemia 272.2 [facility] [address] [place] [address] Nov, 15 Gastroparesis 536.3 ; Essential hypertension, benign 401.1 and Esophageal reflux 530.81 [facility] [address] [place] [address] October, 15 Other vitamin B12 deficiency anemia 281.1 and Malaise and fatigue 780.[address] [id number] [address] [place] [address] Sep, [address] [id number] [address] [place] [phone] Sep, [facility] [address] [place] [phone] Aug, [address] [id number] [address] [place] [phone] Aug, [facility] [address] [place] [address] Apr, 14 [facility] [address] [facility] [id number] [address] [place] [phone] 10 Apr, 2014 [facility] [place] [address] [place] [address] 16 Mar, 14 [facility] [address] [facility] [id number] [address] [place] [phone] 16 Mar, 2013 [facility] [place] [address] [place] [address] 22 Feb, 14 [facility] [address] [facility] [id number] [address] [place] [id number] 22 Feb, 2013 [facility] [place] [address] [place] [address] 18 Feb, 14 [facility] [address] [facility] [id number] [address] [place] [address] 18 Feb, 2013 [facility] [place] [address] [place] [address] 17 Feb, 14 [facility] [place] [address] [place] [address] 17 Feb, 14 [facility] [address] [facility] [id number] [address] [place] [id number] 17 Feb, 2013 [facility] [address] [facility] [id number] [address] [place] [address] 17 Feb, 2013 [facility] [address] [facility] [id number] [address] [place] [id number] 17 Feb, 2013 [facility] [address] [facility] [id number] [address] [place] [phone] 17 Feb, 2013 [facility] [place] [address] [place] [address] 17 Feb, 14 [facility] [place] [address] [place] [address] 17 Feb, 14 [facility] [place] [address] [place] [address] 02 Nov, 14 [facility] [address] [facility] [id number] [facility] [place] [address] Nov, [facility] [place] [address] [facility] [place] [address] Sep, 14 [facility] [address] [id number] [address] [place] [address], [place] [address] Sep, [facility] [place] [address] [place] [address] Sep, 14 [facility] [address] [facility] [id number] [address] [place] [phone] Sep, [facility] [place] [address] [place] [address] Sep, 14 [facility] [address] [facility] [id number] [address] [place] [phone] Sep, [facility] [place] [address] [facility] [place] [address] Aug, 14 [facility] [place] [address] [facility] [place] [address] Aug, 14 [facility] [place] [address] [facility] [place] [address] Aug, 14 [facility] [place] [address] [facility] [place] [address] Aug, 14 [facility] [place] [address] [facility] [place] [address] Aug, 14 [facility] [address] [facility] [id number] [address] [place] [address], [place] [address] Aug, [facility] [address] [facility] [id number] [address] [place] [address], [place] [address] Aug, [facility] [address] [facility] [id number] [address] [place] [address], [place] [address] Aug, [facility] [address] [facility] [id number] [address] [place] [address], [place] [address] Aug, [facility] [address] [facility] [id number] [address] [place] [phone] Aug, [facility] [address] [id number] [address] [place] [address] Aug, [facility] [place] [address] [place] [address] Aug, 14 [facility] [address] [id number] [address] [place] [phone] Aug, [facility] [address] [facility] [id number] [address] [place] [id number] Aug, [facility] [address] [facility] [id number] [address] [place] [phone] Aug, [facility] [place] [address] [place] [address] Aug, 14 [facility] [place] [address] [place] [address] Aug, 14 [facility] [address] [facility] [id number] [address] [place] [phone] Aug, [facility] [place] [address] [place] [address] Jul, 14 [facility] [address] [facility] [id number] [address] [place] [phone] Jul, [facility] [place] [address] [place] [address] Jun, 14 [facility] [address] [facility] [id number] [address] [place] [id number] Jun, [facility] [place] [address] [place] [address] Jun, 14 [facility] [address] [facility] [id number] [address] [place] [phone] Jun, [facility] [place] [address] [place] [address] Jun, 14 [facility] [address] [facility] [id number] [address] [place] [address] Jun, [facility] [place] [address] [place] [address] Jun, 14 [facility] [address] [facility] [id number] [address] [place] [address], [place] [address] Jun, [facility] [place] [address] [place] [address] May, 13 [facility] [address] [facility] [id number] [address] [place] [id number] May, [facility] [place] [address] [place] [address] May, 13 [facility] [address] [facility] [id number] [address] [place] [address] May, [facility] [place] [address] [place] [address] May, 13 [facility] [address] [facility] [id number] [address] [place] [phone] May, [facility] [place] [address] [place] [address] May, 13 [facility] [address] [facility] [id number] [address] [place] [phone] May, [facility] [place] [address] [place] [address] May, 13 [facility] [address] [facility] [id number] [address] [place] [phone] May, [facility] [place] [address] [place] [address] May, 13 [facility] [address] [facility] [id number] [address] [place] [phone] May, [facility] [place] [address] [place] [address] Apr, 13 [facility] [address] [facility] [id number] [address] [place] [phone] Apr, [facility] [address] [facility] [id number] [address] [place] [id number] Apr, [facility] [place] [address] [place] [address] Apr, 13 [facility] [address] [facility] [id number] [address] [place] [phone] Apr, [facility] [place] [address] [place] [address] Apr, 13 [facility] [address] [facility] [id number] [address] [place] [address] Apr, [facility] [place] [address] [place] [address] Apr, 13 [facility] [address] [facility] [id number] [address] [place] [id number] Apr, [facility] [place] [address] [place] [address] Apr, 13 [facility] [address] [facility] [id number] [address] [place] [id number] Apr, [facility] [place] [address] [place] [address] Mar, 13 [facility] [address] [facility] [id number] [address] [place] [phone] Mar, [facility] [place] [address] [place] [address] Mar, 13 [facility] [address] [facility] [id number] [address] [place] [phone] Mar, IMMUNIZATIONS No Known Immunizations SOCIAL HISTORY Never Assessed REASON FOR VISIT [facility] PLAN OF CARE VITAL SIGNS MEDICATIONS Unknown [...]
--- OUTSIDE RECORDS SUMMARY | 2019-09-08 13:54 | XMS REPORT ---
Author Ayla [facility]eno [facility] Address [address] [place] [address] Care Team Providers Care Pattern Assembler Name Role Phone GERSON DURON Unavailable PROBLEMS Type Condition ICD9-CM Code USR62-[place] Code Onset Dates Condition S tatus SNOMED Code Problem Gastroparesis 536.3 Active 738834 006 Problem Essential hypertension, benign 401.1 Active 3967230 Problem Esophageal reflux 530.81 Active 24 8698400 Problem Need for prophylactic vaccination and inoculation, Influen za V04.81 Active 842660968 Problem Pain in joint, ankle and foot 719.47 Active 675522006 Problem Lumbago 724.2 Active 083238190 Problem Gastro-esophageal reflux disease without esophagitis K21.9 Active 445041516 Problem Mixed hyperlipidemia E78.2 Active 206669560 Problem Depressive disorder, not elsewhere classified 311 Active 61346528 Problem Allergic rhinitis due to pollen 477.0 Active 20814985 Problem Essential (primary) hypertension I10 Active 84853597 Problem Mixed hyperlipidemia 272.2 Active 378393584 ALLERGIES No Information ENCOUNTERS Encounter Location Date Diagnosis [facility] [place] [address] [facility] [address] [id number] [place], [place] [address] 522375 Mar, [facility] for [facility] Z23 [facility] [place] [address] [facility] [address] [id number] [place] [address] 034114 Jan, Elevated glucose level R73.09 [facility] [place] [address] [id number] [place], [place] [address] [id number] Jan, Essential (primary) hypertension I10 [facility] [place] [address] [facility] [address] [id number] [place] [address] [id number] Dec, Mixed hyperlipidemia E78.2 and Essential (primary) hypertension I10 [facility] [place] [address] [facility] [address] [id number] [place] [address] 622840 Dec, Essential (primary) hypertension I10 and Gastro-esophageal reflux disease without esophagitis K21.[address] [facility] [place] [address] [facility] [address] [id number] [place] [address] 419276 Mar, Encounter for immunization Z23 [facility] [place] [address] [facility] [address] [id number] [place] [address] 152880 Feb, Encounter for immunization Z23 [facility] [place] [address] [facility] [address] [id number] [place] [address] 305625 Jan, Chronic kidney disease (CKD) stage G3b/A1, moderately decreased glomerular filtration rate (GFR) between 30-44 mL/min/1.73 square meter and albuminuria creatinine ratio less than 30 mg/g N18.[address] [facility] [place] [address] [facility] [address] [id number] [place] [address] 065872 Dec, Essential (primary) hypertension I10 and Mixed hyperlipidemia E78.2 [facility] [place] [address] [place] [address] [address] [id number] [place] [address] 908510 Dec, Essential (primary) hypertension I10 ; Gastro-esophageal reflux disease without esophagitis K21.9 and Gastroparesis K31.84 [facility] [place] [address] [place] [address] [address] [id number] [place] [address] 662526 Dec, [facility] [place] [address] [place] [address] [address] [id number] [place] [address] [id number] 18 Jul, 2015 Well woman exam Z01.419 ; Postmenopausal Z78.0 and Encounter for screening mammogram for malignant neoplasm of breast Z12.[address] [facility] [place] [address] [facility] [address] [id number] [place] [address] 559037 10 Jul, 2015 Shingles B02.9 [facility] [place] [address] [place] [address] [address] [id number] [place] [address] 860494 Jun, Shingles B02.9 ; Low back pain M54.5 ; Sciatica, unspecified side M54.30 and Encounter for immunization Z23 [facility] [place] [address] [facility] [address] [id number] [place] [address] 212566 Apr, [facility] [place] [address] [facility] [address] [id number] [place] [address] 854185 Mar, Encounter for immunization Z23 [facility] [place] [address] [facility] [address] [id number] [place] [address] 822620 Jan, [facility] [place] [address] [facility] [address] [id number] [place] [address] 573484 Jan, [facility] [place] [address] [facility] [address] [id number] [place] [address] 930759 Nov, Lumbar back pain 724.[address] [facility] [place] [address] [facility] [address] [id number] [place] [address] 648235 Nov, [facility] [place] [address] [facility] [address] [id number] [place] [address] 680994 Nov, [facility] [place] [address] [facility] [address] [id number] [place] [address] 974114 Nov, [facility] [place] [address] [facility] [address] [id number] [place] [address] 238677 Nov, [facility] [place] [address] [facility] [address] [id number] [place] [address] 143026 Nov, [facility] [place] [address] [facility] [address] [id number] [place] [address] 596156 Nov, Gastroparesis 536.3 ; Essential hypertension, benign 401.1 ; Other vitamin B12 deficiency anemia 281.1 ; Malaise and fatigue 780.79 and Mixed hyperlipidemia 272.2 [facility] [place] [address] [facility] [address] [id number] [place] [address] 144162 Nov, Gastroparesis 536.3 ; Essential hypertension, benign 401.1 and Esophageal reflux 530.81 [facility] [place] [address] [facility] [address] [id number] [place] [address] 631124 October, Other vitamin B12 deficiency anemia 281.1 and Malaise and fatigue 780.79 [facility] [address] [facility] [id number] [address] [place] [address] Sep, [facility] [address] [facility] [id number] [address] [place] [address] Sep, [facility] [place] [address] [place] [address] [address] [id number] [place] [address] 793359 Aug, [facility] [address] [id number] [address] [facility] [place] [address] Aug, [facility] [place] [address] [id number] [place] [address] 211182 Apr, [facility] [address] [id number] [address] [facility] [place] [address] Apr, [facility] [place] [address] [id number] [place] [address] 962513 Mar, [facility] [address] [id number] [facility] [place] [address] Mar, [facility] [place] [address] [id number] [place] [address] 417579 Feb, [facility] [address] [id number] [place] [address] 22 Feb, 2014 [facility] [place] [address] [id number] [place] [address] 823858 18 Feb, 2014 [facility] [address] [id number] [facility] [place] [address] 18 Feb, 2014 [facility] [place] [address] [id number] [place] [address] 777181 17 Feb, 2014 [facility] [place] [address] [facility] [address] [id number] [place] [address] 967785 17 Feb, 2014 [facility] [address] [id number] [facility] [place] [address] 17 Feb, 2014 [facility] [address] [id number] [facility] [place] [address] 17 Feb, 2014 [facility] [address] [id number] [address] [place] [address], [place] [address] 17 Feb, 2014 [facility] [address] [id number] [facility] [place] [address] 17 Feb, 2014 [facility] [place] [address] [facility] [address] [id number] [place] [address] 774222 17 Feb, 2014 [facility] [place] [address] [id number] [place] [address] 661638 Feb, [facility] [place] [address] [id number] [place] [address] 073336 Nov, [facility] [address] [facility] [id number] [facility] [place] [address] Nov, [facility] [place] [address] [id number] [place] [address] 809184 Sep, [facility] [address] [facility] [id number] [address] [place] [address] Sep, [facility] [place] [address] [id number] [place] [address] 747858 Sep, [facility] [address] [facility] [id number] [address] [place] [address] Sep, [facility] [place] [address] [id number] [place] [address] 390344 Sep, [facility] [address] [facility] [id number] [address] [place] [address], [place] [address] Sep, [facility] [place] [address] [id number] [place] [address] 276887 Aug, [facility] [place] [address] [id number] [place] [address] 444705 Aug, [facility] [place] [address] [id number] [place] [address] 169224 Aug, [facility] [place] [address] [id number] [place] [address] 755248 Aug, [facility] [place] [address] [id number] [place] [address] 844983 Aug, [facility] [address] [facility] [id number] [address] [place] [address], [place] [address] Aug, [facility] [address] [facility] [id number] [address] [place] [address], [place] [address] Aug, [facility] [address] [facility] [id number] [address] [place] [address] Aug, [facility] [address] [id number] [facility] [place] [address] Aug, [facility] [address] [id number] [facility] [place] [address] Aug, [facility] [address] [id number] [facility] [place] [address] Aug, [facility] [place] [address] [id number] [place] [address] [id number] Aug, [facility] [address] [id number] [facility] [place] [address] Aug, [facility] [address] [id number] [facility] [place] [address] Aug, [facility] [address] [id number] [address] [place] [address], [place] [address] Aug, [facility] [place] [address] [id number] [place] [address] 228040 Aug, [facility] [place] [address] [id number] [place] [address] 681520 Aug, [facility] [address] [id number] [address] [place] [address], [place] [address] Aug, [facility] [place] [address] [id number] [place] [address] 100116 Jul, [facility] [address] [id number] [facility] [place] [address] Jul, [facility] [place] [address] [id number] [place] [address] 300835 Jun, [facility] [address] [id number] [address] [place] [address], [place] [address] Jun, [facility] [place] [address] [id number] [place] [address] 333223 Jun, [facility] [address] [id number] [address] [place] [address], [place] [address] Jun, [facility] [place] [address] [id number] [place] [address] 114683 Jun, [facility] [address] [id number] [address] [facility] [place] [address] Jun, [facility] [place] [address] [id number] [place] [address] 592744 Jun, [facility] [address] [id number] [facility] [place] [address] Jun, [facility] [place] [address] [id number] [place] [address] 866144 May, [facility] [address] [id number] [facility] [address] May, [facility] [place] [address] [id number] [place] [address] [id number] May, [facility] [address] [id number] [facility] [address] May, [facility] [place] [address] [id number] [place] [address] 650208 May, [facility] [address] [id number] [facility] [address] May, [facility] [place] [address] [facility] [address] [id number] [place] [address] 818412 May, [facility] [address] [id number] [address] [facility] [place] [address] May, [facility] [place] [address] [id number] [place] [address] 082364 May, [facility] [address] [id number] [facility] [address] May, [facility] [place] [address] [id number] [place] [address] 994132 May, [facility] [address] [id number] [facility] [place] [address] May, [facility] [place] [address] [id number] [place] [address] 964354 Apr, [facility] [address] [facility] [id number] [address] [place] [address] Apr, [facility] [address] [facility] [id number] [address] [place] [address] Apr, [facility] [place] [address] [facility] [address] [id number] [place] [address] [id number] Apr, [facility] [address] [facility] [id number] [address] [place] [address] Apr, [facility] [place] [address] [facility] [address] [id number] [place] [address] [id number] Apr, [facility] [address] [facility] [id number] [address] [place] [address] Apr, [facility] [place] [address] [facility] [address] [id number] [place] [address] 347402 Apr, [facility] [address] [facility] [id number] [address] [place] [address] Apr, [facility] [place] [address] [facility] [address] [id number] [place] [address] [id number] Apr, [facility] [address] [facility] [id number] [address] [place] [address] Apr, [facility] [place] [address] [facility] [address] [id number] [place] [address] [id number] Mar, [facility] [address] [facility] [id number] [address] [place] [address] Mar, [facility] [place] [address] [facility] [address] [id number] [place] [address] [id number] Mar, [facility] [address] [facility] [id number] [address] [place] [address] Mar, IMMUNIZATIONS Vaccine Route Administration Date Status FLUARIX QUAD (3 AND UP) 2017 IM Intramuscular Apr 10, 2017 Ad ministered SOCIAL HISTORY Never Assessed REASON FOR VISIT flu shot, [employer] PLAN OF CARE Activity Details Follow Up prn Reason: VITAL SIGNS MEDICATIONS Unknown Medications RESULTS No Results PROCEDURES Procedure Date Ordered Result Body Site FLUARIX QUAD (3 & UP)-GSK-2015 Apr 10, 2017 SINGLE IMMUNIZATION ADMIN Apr 10, 2017 INSTRUCTIONS MEDICATIONS ADMINISTERED No Known Medications MEDICAL [...]
--- OUTSIDE RECORDS SUMMARY | 2019-09-08 13:54 | XMS REPORT ---
Author Ayla Bueno [facility] Address [address] [place] [address] Care Team Providers Care Computer Forensics Technician Name Role Phone GERSON DURON Unavailable PROBLEMS Type Condition ICD9-CM Code LLQ88-FP Code Onset Dates Condition S tatus SNOMED Code Problem Gastroparesis 536.3 Active 757925 006 Problem Essential hypertension, benign 401.1 Active 6247295 Problem Esophageal reflux 530.81 Active 24 5455166 Problem Need for prophylactic vaccination and inoculation, Influen za V04.81 Active 900773010 Problem Pain in joint, ankle and foot 719.47 Active 493790998 Problem Lumbago 724.2 Active 075364047 Problem Gastro-esophageal reflux disease without esophagitis K21.9 Active 301120366 Problem Mixed hyperlipidemia E78.2 Active 726386489 Problem Depressive disorder, not elsewhere classified 311 Active 10633343 Problem Allergic rhinitis due to pollen 477.0 Active 69731415 Problem Essential (primary) hypertension I10 Active 44402979 Problem Mixed hyperlipidemia 272.2 Active 496594532 ALLERGIES No Information ENCOUNTERS Encounter Location Date Diagnosis [facility] [place] [address] [facility] [address] [id number] [place] [address] 732117 Mar, Encounter for immunization Z23 [facility] [place] [address] [facility] [address] [id number] [place], [place] [address] 229207 Jan, Elevated glucose level R73.09 [facility] [place] [address] [id number] [place], [place] [address] 035990 Jan, Essential (primary) hypertension I10 [facility] [place] [address] [facility] C [id number] [place], [place] [address] 259076 Dec, Mixed hyperlipidemia E78.2 and Essential (primary) hypertension I10 [facility] [place] [address] [facility] [address] [id number] [place], [place] [address] 083942 Dec, Essential (primary) hypertension I10 and Gastro-esophageal reflux disease without esophagitis K21.9 [facility] [place] [address] [facility] [address] [id number] [place] [address] 312476 Mar, Encounter for immunization Z23 [facility] [place] [address] [facility] [address] [id number] [place] [address] 950307 Feb, Encounter for immunization Z23 [facility] [place] [address] [facility] [address] [id number] [place] [address] 017518 Jan, Chronic kidney disease (CKD) stage G3b/A1, moderately decreased glomerular filtration rate (GFR) between 30-44 mL/min/1.73 square meter and albuminuria creatinine ratio less than 30 mg/g N18.3 [facility] [place] [address] [facility] [address] [id number] [place] [address] 707817 Dec, Essential (primary) hypertension I10 and Mixed hyperlipidemia E78.2 [facility] [place] [address] [place] [address] [address] [id number] [place] [address] 442947 Dec, Essential (primary) hypertension I10 ; Gastro-esophageal reflux disease without esophagitis K21.9 and Gastroparesis K31.84 [facility] [place] [address] [place] [address] [address] [id number] [place] [address] 475037 Dec, [facility] [place] [address] [place] [address] [address] [id number] [place] [address] 667381 18 Jul, 2015 Well woman exam Z01.419 ; Postmenopausal Z78.0 and Encounter for screening mammogram for malignant neoplasm of breast Z12.31 [facility] [place] [address] [facility] [address] [id number] [place] [address] 451670 10 Jul, 2015 Shingles B02.9 [facility] [place] [address] [place] [address] [address] [id number] [place] [address] 469144 Jun, Shingles B02.9 ; Low back pain M54.5 ; Sciatica, unspecified side M54.30 and Encounter for immunization Z23 [facility] [place] [address] [facility] [address] [id number] [place] [address] 379206 Apr, [facility] [place] [address] [facility] [address] [id number] [place] [address] 840043 Mar, Encounter for immunization Z23 [facility] [place] [address] [facility] [address] [id number] [place] [address] 442267 Jan, [facility] [place] [address] [facility] [address] [id number] [place] [address] 328331 Jan, [facility] [place] [address] [facility] [address] [id number] [place] [address] 729480 Nov, Lumbar back pain 724.2 [facility] [place] [address] [facility] [address] [id number] [place] [address] 703307 Nov, [facility] [place] [address] [facility] [address] [id number] [place] [address] 463363 Nov, [facility] [place] [address] [facility] [address] [id number] [place] [address] 320729 Nov, [facility] [place] [address] [facility] [address] [id number] [place] [address] 760220 Nov, [facility] [place] [address] [facility] [address] [id number] [place] [address] 776188 Nov, [facility] [place] [address] [facility] [address] [id number] [place] [address] 611245 Nov, Gastroparesis 536.3 ; Essential hypertension, benign 401.1 ; Other vitamin B12 deficiency anemia 281.1 ; Malaise and fatigue 780.79 and Mixed hyperlipidemia 272.2 [facility] [place] [address] [facility] [address] [id number] [place] [address] 307860 Nov, Gastroparesis 536.3 ; Essential hypertension, benign 401.1 and Esophageal reflux 530.81 [facility] [place] [address] [facility] [address] [id number] [place] [address] 167867 October, Other vitamin B12 deficiency anemia 281.1 and Malaise and fatigue 780.79 [facility] [address] [facility] [id number] [address] [place] [address] Sep, [facility] [address] [facility] [id number] [address] [place] [address] Sep, [facility] [place] [address] [place] [address] [address] [id number] [place] [address] 807418 Aug, [facility] [address] [id number] [address] [facility] [place] [address] Aug, [facility] [place] [address] [id number] [place] [address] 012200 Apr, [facility] [address] [id number] [address] [facility] [place] [address] Apr, [facility] [place] [address] [id number] [place] [address] 157213 Mar, [facility] [address] [id number] [facility] [place] [address] Mar, [facility] [place] [address] [id number] [place] [address] 841430 Feb, [facility] [address] [id number] [address] [place] [address] 22 Feb, 2014 [facility] [place] [address] [id number] [place] [address] 888493 18 Feb, 2014 [facility] [address] [id number] [facility] [place] [address] 18 Feb, 2014 [facility] [place] [address] [id number] [place] [address] 148337 17 Feb, 2014 [facility] [place] [address] [facility] [address] [id number] [place] [address] 164084 17 Feb, 2014 [facility] [address] [id number] [facility] [place] [address] 17 Feb, 2014 [facility] [address] [id number] [facility] [place] [address] 17 Feb, 2014 [facility] [address] [id number] [address] [place] [address], [place] [address] 17 Feb, 2014 [facility] [address] [id number] [facility] [place] [address] 17 Feb, 2014 [facility] [place] [address] [facility] [address] [id number] [place] [address] 067517 17 Feb, 2014 [facility] [place] [address] [id number] [place] [address] 024265 Feb, [facility] [place] [address] [id number] [place] [address] 598971 Nov, [facility] [address] [facility] [id number] [facility] [place] [address] Nov, [facility] [place] [address] [id number] [place] [address] 636475 Sep, [facility] [address] [facility] [id number] [address] [place] [address] Sep, [facility] [place] [address] [id number] [place] [address] 512579 Sep, [facility] [address] [facility] [id number] [address] [place] [address] Sep, [facility] [place] [address] [id number] [place] [address] 628708 Sep, [facility] [address] [facility] [id number] [address] [place] [address], [place] [address] Sep, [facility] [place] [address] [id number] [place] [address] 827767 Aug, [facility] [place] [address] [id number] [place] [address] 459764 Aug, [facility] [place] [address] [id number] [place] [address] 564362 Aug, [facility] [place] [address] [id number] [place] [address] 040729 Aug, [facility] [place] [address] [id number] [place] [address] 137182 Aug, [facility] [address] [facility] [id number] [address] [place] [address], [place] [address] Aug, [facility] [address] [facility] [id number] [address] [place] [address], [place] [address] Aug, [facility] [address] [facility] [id number] [address] [place] [address] Aug, [facility] [address] [id number] [facility] [place] [address] Aug, [facility] [address] [id number] [facility] [place] [address] Aug, [facility] [address] [id number] [facility] [place] [address] Aug, [facility] [place] [address] [id number] [place] [address] [id number] Aug, [facility] [address] [id number] [facility] [place] [address] Aug, [facility] [address] [id number] [facility] [place] [address] Aug, [facility] [address] [id number] [address] [place] [address], [place] [address] Aug, [facility] [place] [address] [id number] [place] [address] 243787 Aug, [facility] [place] [address] [id number] [place] [address] 897881 Aug, [facility] [address] [id number] [address] [place] [address], [place] [address] Aug, [facility] [place] [address] [id number] [place] [address] 723542 Jul, [facility] [address] [id number] [facility] [place] [address] Jul, [facility] [place] [address] [id number] [place] [address] 870672 Jun, [facility] [address] [id number] [address] [place] [address], [place] [address] Jun, [facility] [place] [address] [id number] [place] [address] 901452 Jun, [facility] [address] [id number] [address] [place] [address], [place] [address] Jun, [facility] [place] [address] [id number] [place] [address] 323473 Jun, [facility] [address] [id number] [address] [facility] [place] [address] Jun, [facility] [place] [address] [id number] [place] [address] 222257 Jun, [facility] [address] [id number] [facility] [place] [address] Jun, [facility] [place] [address] [id number] [place] [address] 629606 May, [facility] [address] [id number] [facility] [place] [address] May, [facility] [place] [address] [id number] [place] [address] [id number] May, [facility] [address] [id number] [facility] [place] [address] May, [facility] [place] [address] [id number] [place] [address] 415066 May, [facility] [address] [id number] [facility] [place] [address] May, [facility] [place] [address] [facility] [address] [id number] [place] [address] 047339 May, [facility] [address] [id number] [address] [facility] [place] [address] May, [facility] [place] [address] [id number] [place] [address] 251780 May, [facility] [address] [id number] [facility] [place] [address] May, [facility] [place] [address] [id number] [place] [address] 706324 May, [facility] [address] [id number] [facility] [place] [address] May, [facility] [place] [address] [id number] [place] [address] [id number] Apr, [facility] [address] [facility] [id number] [address] [place] [address] Apr, [facility] [address] [facility] [id number] [address] [place] [address] Apr, [facility] [place] [address] [facility] [address] [id number] [place] [address] [id number] Apr, [facility] [address] [facility] [id number] [address] [place] [address] Apr, [facility] [place] [address] [facility] [address] [id number] [place] [address] [id number] Apr, [facility] [address] [facility] [id number] [address] [place] [address] Apr, [facility] [place] [address] [facility] C [id number] [place] [address] 309402 Apr, [facility] [address] [facility] [id number] [address] [place] [address] Apr, [facility] [place] [address] [facility] [address] [id number] [place] [address] [id number] Apr, [facility] [address] [facility] [id number] [address] [place] [address] Apr, [facility] [place] [address] [facility] C [id number] [place] [address] [id number] Mar, [facility] [address] [facility] [id number] [address] [place] [address] Mar, [facility] [place] [address] [facility] C [id number] [place] [address] 360402 Mar, [facility] [address] [facility] [id number] [address] [place] [address] Mar, IMMUNIZATIONS No Known Immunizations SOCIAL HISTORY Never Assessed REASON FOR VISIT PLAN OF CARE VITAL SIGNS MEDICATIONS Medication Instructions Dosage Frequency Start Date End Date Duration S tatus Gemfibrozil 600 MG Orally Once a day 1 tablet 24h Active RESULTS No Results PROCEDURES No Known [...] W RADIAL HEAD ; RT KNEE REPLACEMENT Surgical History cataract-lens implants - BILAT Surgical History ANTERIOR REPAIR VAGINAL VAULT PROLAPSE 0 02/2012 Surgical History ESOPHAGUS PUNCTURES AND LUNG COLLAPSE Surgical History RECTAL REPAIR 09/2012 Hospitalization History Surgery(s) only
--- OUTSIDE RECORDS SUMMARY | 2019-09-08 13:55 | XMS REPORT ---
Author Ayla Bueno [facility] Address [address] [place] [address] Care Team Providers Care Modeling Analyst Name Role Phone GERSON DURON Unavailable PROBLEMS Type Condition ICD9-CM Code [id number] Code Onset Dates Condition S tatus SNOMED Code Problem Gastroparesis 536.3 Active 694745 006 Problem Essential hypertension, benign 401.1 Active 8613118 Problem Esophageal reflux 530.81 Active 24 8624776 Problem Need for prophylactic vaccination and inoculation, Influen za V04.81 Active 831826424 Problem Pain in joint, ankle and foot 719.47 Active 901626231 Problem Lumbago 724.2 Active 241640859 Problem Gastro-esophageal reflux disease without esophagitis K21.9 Active 941330941 Problem Mixed hyperlipidemia E78.2 Active 414755775 Problem Depressive disorder, not elsewhere classified 311 Active 93520491 Problem Allergic rhinitis due to pollen 477.0 Active 17123931 Problem Essential (primary) hypertension I10 Active 12380312 Problem Mixed hyperlipidemia 272.2 Active [id number] ALLERGIES No Information ENCOUNTERS Encounter Location Date Diagnosis [facility] [place] [address] [facility] [address] [id number] [place], [place] [address] 651120 Mar, Encounter for immunization Z23 [facility] [place] [address] [facility] [address] [id number] [place], [place] [address] 240968 Jan, Elevated glucose level R73.09 [facility] [place] [address] [id number] [place], [place] [address] 663007 Jan, Essential (primary) hypertension I10 [facility] [place] [address] [facility] [address] [id number] [place], [place] [address] 468319 Dec, Mixed hyperlipidemia E78.2 and Essential (primary) hypertension I10 [facility] [place] [address] [facility] [address] [id number] [place], [place] [address] 955906 Dec, Essential (primary) hypertension I10 and Gastro-esophageal reflux disease without esophagitis K21.[address] [facility] [place] [address] [facility] [address] [id number] [place] [address] 818072 Mar, Encounter for immunization Z23 [facility] [place] [address] [facility] [address] [id number] [place] [address] 685095 Feb, Encounter for immunization Z23 [facility] [place] [address] [facility] [address] [id number] [place] [address] 893039 Jan, Chronic kidney disease (CKD) stage G3b/A1, moderately decreased glomerular filtration rate (GFR) between 30-44 mL/min/1.73 square meter and albuminuria creatinine ratio less than 30 mg/g N18.[address] [facility] [place] [address] [facility] [address] [id number] [place] [address] 733779 Dec, Essential (primary) hypertension I10 and Mixed hyperlipidemia E78.2 [facility] [place] [address] [place] [address] [address] [id number] [place] [address] 393332 Dec, Essential (primary) hypertension I10 ; Gastro-esophageal reflux disease without esophagitis K21.9 and Gastroparesis K31.84 [facility] [place] [address] [place] [address] [address] [id number] [place] [address] 878036 Dec, [facility] [place] [address] [place] [address] [address] [id number] [place] [address] 630350 18 Jul, 2015 Well woman exam Z01.419 ; Postmenopausal Z78.0 and Encounter for screening mammogram for malignant neoplasm of breast Z12.[address] [facility] [place] [address] [facility] [address] [id number] [place] [address] 258956 10 Jul, 2015 Shingles B02.9 [facility] [place] [address] [place] [address] [address] [id number] [place] [address] 396378 Jun, Shingles B02.9 ; Low back pain M54.5 ; Sciatica, unspecified side M54.30 and Encounter for immunization Z23 [facility] [place] [address] [facility] [address] [id number] [place] [address] 821435 Apr, [facility] [place] [address] [facility] [address] [id number] [place] [address] 448495 Mar, Encounter for immunization Z23 [facility] [place] [address] [facility] [address] [id number] [place] [address] 837372 Jan, [facility] [place] [address] [facility] [address] [id number] [place] [address] 587011 Jan, [facility] [place] [address] [facility] [address] [id number] [place] [address] 694823 Nov, Lumbar back pain 724.[address] [facility] [place] [address] [facility] [address] [id number] [place] [address] 718855 Nov, [facility] [place] [address] [facility] [address] [id number] [place] [address] 776986 Nov, [facility] [place] [address] [facility] [address] [id number] [place] [address] 046724 Nov, [facility] [place] [address] [facility] [address] [id number] [place] [address] 563151 Nov, [facility] [place] [address] [facility] [address] [id number] [place] [address] 262725 Nov, [facility] [place] [address] [facility] [address] [id number] [place] [address] 264849 Nov, Gastroparesis 536.3 ; Essential hypertension, benign 401.1 ; Other vitamin B12 deficiency anemia 281.1 ; Malaise and fatigue 780.79 and Mixed hyperlipidemia 272.2 [facility] [place] [address] [facility] [address] [id number] [place] [address] 019126 Nov, Gastroparesis 536.3 ; Essential hypertension, benign 401.1 and Esophageal reflux 530.81 [facility] [place] [address] [facility] [address] [id number] [place] [address] 580934 October, Other vitamin B12 deficiency anemia 281.1 and Malaise and fatigue 780.79 [facility] [address] [facility] [id number] [address] [place] [address] Sep, [facility] [address] [facility] [id number] [address] [place] [address] Sep, [facility] [place] [address] [place] [address] [address] [id number] [place] [address] 583666 Aug, [facility] [address] [id number] [address] [place] [address] Aug, [facility] [place] [address] [id number] [place] [address] 455956 Apr, [facility] [address] [id number] [address] [place] [address] Apr, [facility] [place] [address] [id number] [place] [address] 615598 Mar, [facility] [address] [id number] [facility] [place] [address] Mar, [facility] [place] [address] [id number] [place] [address] 507726 Feb, [facility] [address] [id number] [address] [place] [address] 22 Feb, 2014 [facility] [place] [address] [id number] [place] [address] 273932 18 Feb, 2014 [facility] [address] [id number] [facility] [place] [address] 18 Feb, 2014 [facility] [place] [address] [id number] [place] [address] 576724 17 Feb, 2014 [facility] [place] [address] [facility] [address] [id number] [place] [address] 453064 17 Feb, 2014 [facility] [address] [id number] [facility] [place] [address] 17 Feb, 2014 [facility] [address] [id number] [facility] [place] [address] 17 Feb, 2014 [facility] [address] [id number] [address] [place] [address], [place] [address] 17 Feb, 2014 [facility] [address] [id number] [facility] [place] [address] 17 Feb, 2014 [facility] [place] [address] [facility] [address] [id number] [place] [address] 126170 17 Feb, 2014 [facility] [place] [address] [id number] [place] [address] 053222 Feb, [facility] [place] [address] [id number] [place] [address] 755426 Nov, [facility] [place] [facility] [address] [facility] [id number] [facility] [place] [address] Nov, [facility] [place] [address] [id number] [place] [address] 847462 Sep, [facility] [address] [facility] [id number] [address] [place] [address] Sep, [facility] [place] [address] [id number] [place] [address] 387091 Sep, [facility] [address] [facility] [id number] [address] [place] [address] Sep, [facility] [place] [address] [id number] [place] [address] 429329 Sep, [facility] [address] [facility] [id number] [address] [place] [address], [place] [address] Sep, [facility] [place] [address] [id number] [place] [address] 909209 Aug, [facility] [place] [address] [id number] [place] [address] 858337 Aug, [facility] [place] [address] [id number] [place] [address] 928367 Aug, [facility] [place] [address] [id number] [place] [address] 117944 Aug, [facility] [place] [address] [id number] [place] [address] 213574 Aug, [facility] [address] [facility] [id number] [address] [place] [address], [place] [address] Aug, [facility] [address] [facility] [id number] [address] [place] [address], [place] [address] Aug, [facility] [address] [facility] [id number] [address] [place] [address] Aug, [facility] [address] [id number] [facility] [place] [address] Aug, [facility] [address] [id number] [facility] [place] [address] Aug, [facility] [address] [id number] [facility] [place] [address] Aug, [facility] [place] [address] [id number] [place] [address] [id number] Aug, [facility] [address] [id number] [facility] [place] [address] Aug, [facility] [address] [id number] [facility] [place] [address] Aug, [facility] [address] [id number] [address] [place] [address], [place] [address] Aug, [facility] [place] [address] [id number] [place] [address] 710015 Aug, [facility] [place] [address] [id number] [place] [address] 914587 Aug, [facility] [address] [id number] [address] [place] [address], [place] [address] Aug, [facility] [place] [address] [id number] [place] [address] 560784 Jul, [facility] [address] [id number] [facility] [place] [address] Jul, [facility] [place] [address] [id number] [place] [address] 787847 Jun, [facility] [address] [id number] [address] [place] [address], [place] [address] Jun, [facility] [place] [address] [id number] [place] [address] 545826 Jun, [facility] [address] [id number] [address] [place] [address], [place] [address] Jun, [facility] [place] [address] [id number] [place] [address] 235643 Jun, [facility] [address] [id number] [address] [address] Jun, [facility] [place] [address] [id number] [place] [address] 999139 Jun, [facility] [address] [id number] [facility] [place] [address] Jun, [facility] [place] [address] [id number] [place] [address] 925280 May, [facility] [address] [id number] [facility] [place] [address] May, [facility] [place] [address] [id number] [place] [address] [id number] May, [facility] [address] [id number] [facility] [place] [address] May, [facility] [place] [address] [id number] [place] [address] 673455 May, [facility] [address] [id number] [facility] [place] [address] May, [facility] [place] [address] [facility] [address] [id number] [place] [address] 272240 May, [facility] [address] [id number] [address] [address] May, [facility] [place] [address] [id number] [place] [address] 003936 May, [facility] [address] [id number] [facility] [place] [address] May, [facility] [place] [address] [id number] [place] [address] 694354 May, [facility] [address] [id number] [facility] [place] [address] May, [facility] [place] [address] [id number] [place] [address] 325555 Apr, [facility] [address] [id number] [address] [place] [address] Apr, [facility] [address] [facility] [id number] [address] [place] [address] Apr, [facility] [place] [address] [facility] [address] [id number] [place] [address] 913798 Apr, [facility] [address] [id number] [address] [place] [address] Apr, [facility] [place] [address] [facility] [address] [id number] [place] [address] [id number] Apr, [facility] [address] [facility] [id number] [address] [place] [address] Apr, [facility] [place] [address] [facility] [address] [id number] [place] [address] 759402 Apr, [facility] [address] [facility] [id number] [address] [place] [address] Apr, [facility] [place] [address] [facility] [address] [id number] [place] [address] [id number] Apr, [facility] [address] [facility] [id number] [address] [place] [address] Apr, [facility] [place] [address] [facility] [address] [id number] [place] [address] 382381 Mar, [facility] [address] [facility] [id number] [address] [place] [address] Mar, [facility] [place] [address] [facility] [address] [id number] [place], [place] 267872 Mar, [facility] [address] [facility] [id number] [address] [place] [address] Mar, IMMUNIZATIONS No Known Immunizations SOCIAL HISTORY Never Assessed REASON FOR VISIT Lab (walk-in). Alex PLAN OF CARE Activity Details Follow Up prn Reason: VITAL SIGNS MEDICATIONS Unknown Medications RESULTS Name Result Date Reference Range A1C (IN HOUSE) A1C IN HOUSE 5.4 4.3 - 5.6 % Previous A1c Lot [id number] Exp date 10/2018 PROCEDURES Procedure Date Ordered Result Body Site GLYCATED HEMOGLOBIN TEST Feb 04, 2017 INSTRUCTIONS MEDICATIONS ADMINISTERED No Known Medications [...]
== END 2019-09-06 14:40 | disposition home or self-care (01) ==
LOC: SDC 05:53
PROVIDERS: ATTEND Podiatrist Foot & Ankle Surgery
DX: M20.12 Hallux valgus (acquired), left foot (principal); M89.372 Hypertrophy of bone, left ankle and foot; M20.42 Other hammer toe(s) (acquired), left foot; M10.9 Gout, unspecified; Z11.2 Encounter for screening for other bacterial diseases; K21.9 Gastro-esophageal reflux disease without esophagitis; E78.2 Mixed hyperlipidemia; I10 Essential (primary) hypertension; Z96.651 Presence of right artificial knee joint; Z85.41 Personal history of malignant neoplasm of cervix uteri; J45.20 Mild intermittent asthma, uncomplicated; E11.9 Type 2 diabetes mellitus without complications; Z79.82 Long term (current) use of aspirin; Z79.899 Other long term (current) drug therapy; E66.9 Obesity, unspecified; Z68.35 Body mass index [BMI] 35.0-35.9, adult
CPT/HCPCS: 73620; 87081